=== PATIENT | female | born 1950 | race Caucasian/White ===

== ENCOUNTER → 2017-04-20 | Outpatient (CLI) | payer MEDICARE ==
[~2017-04-20] MED LIST: ALBU8.5H IH; AMLO-99 PO; BACL-51 PO; CITA-137 PO; CITA-139 PO; CITA-141 PO; CLON-327 PO; CYAN100017 PO; FERR325C2 PO; FLU45SYR25 IM ONLY; GABA-547 PO; GABA-549 PO; IPR14R INH; LOR5/325 PO; LOSA-54 PO; METO-257 PO; NEBI20TA3; NICO-218 TD; NIT100 PO; OMEP-153 PO; ONDA4TAB PO; PNEI IJ; PNEU0.5D3 IM; SULF15DR26 OP
[2017-04-20 16:09] LABS: PLATELET COUNT, AUTOMATED 248 K/uL (150-450)
== END ==
LOC: LAB 15:38
PROVIDERS: ATTEND Internal Medicine
DX: R09.02 Hypoxemia (principal); E05.20 Thyrotoxicosis with toxic multinodular goiter without thyrotoxic crisis or storm; J44.9 Chronic obstructive pulmonary disease, unspecified; E05.90 Thyrotoxicosis, unspecified without thyrotoxic crisis or storm; I10 Essential (primary) hypertension; I61.9 Nontraumatic intracerebral hemorrhage, unspecified; E53.8 Deficiency of other specified B group vitamins; E61.1 Iron deficiency
CPT/HCPCS: 36415; 81001; 82040; 82247; 82310; 82374; 82435; 82565; 82607; 82728; 82746; 82947; 83540; 83550; 84075; 84132; 84155; 84295; 84439; 84443; 84450; 84460; 84481; 84520; 85025

== ENCOUNTER → 2017-07-09 | Outpatient (CLI) | payer MEDICARE ==
[~2017-07-09] MED LIST changes: +AMIT-106 PO; -CITA-139 PO; +CITA-145 PO
--- NOTE | 2017-07-09 13:09 | RADIOLOGY IMAGING REPORT ---
FACILITY: [facility] PATIENT NAME: Nanci Paul : 1950 MR: [id number] V: [id number] EXAM DATE: ORDERING PHYSICIAN: TODD TRACEY TECHNOLOGIST: Location: [facility] Patient: Nanci Paul : 1950 Visit/Account:[id number] Date of Sevice: 07/09/2017 Exam type: CERVICAL SPINE MIN 4 VIEW History: C-spine pain, left-sided radiculopathy, stroke two years ago Comparison: MR cervical spine August 16, 2009. Findings: Five views of the cervical spine were submitted. C1-C7 are seen in gross anatomic alignment without evidence of acute fractures. There is moderate disc space narrowing at C4-5 with mild foraminal narr owing on the right secondary to uncovertebral spurring. There is moderate disc space narrowing at C5 -6 with moderate neural foramina narrowing secondary to uncovertebral spurring. There is moderate di sc space narrowing at C6-7 with mild foraminal narrowing bilaterally secondary to uncovertebral spurr ing. Anterior osteophytes are seen from C3 to C7 there is no evidence of prevertebral soft tissue sw elling. Incidentally noted are very dense vascular calcifications in both sides of the neck IMPRESSION: 1. 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
== END ==
LOC: RAD 11:36
PROVIDERS: ATTEND Internal Medicine
DX: M47.892 Other spondylosis, cervical region (principal); I65.23 Occlusion and stenosis of bilateral carotid arteries
CPT/HCPCS: 72050

== ENCOUNTER → 2017-07-16 | Outpatient (CLI) | payer MEDICARE ==
[~2017-07-16] MED LIST changes: +GADOBENATE 529MG/1ML 15ML VIAL IVP ONE
--- NOTE | 2017-07-16 13:57 | RADIOLOGY IMAGING REPORT ---
[facility] PATIENT NAME: Nanci Paul : 1950 MR: [id number] V: [id number] EXAM DATE: ORDERING PHYSICIAN: TODD TRACEY TECHNOLOGIST: Location: [facility] Patient: Nanci Paul : 1950 Visit/Account:[id number] Date of Sevice: 07/16/2017 BRAIN W W/O CONTRAST Comparisons: Head CT scan without contrast dated August 25, 2015 Additional pertinent history: Hemiplegia affecting the left side TECHNIQUE: Multiplanar, multisequence brain MRI was performed with and without gadolinium contrast. CONTRAST: 11 ml of MultiHance. FINDINGS: Sagittal midline structures and craniocervical junction: Negative. Midline shift: None. Ventricles: Negative. Brain parenchyma: Diffusion weighted imaging: Negative. Gradient sequence: Region of magnetic susceptibility involving the posterior right periventricular white matter compatible with a region of previous into parenchymal hemorrhage as noted on previous CT . T2 weighted FLAIR images: Region of encephalomalacia with abnormal increased T2 signal involving th e right thalamus and right periventricular white matter posteriorly. Scattered foci of abnormal incre ased T2 signal within the periventricular and subcortical white matter, nonspecific but likely repres enting small vessel ischemic change on a chronic basis. Extra-axial spaces: Mild cerebral atrophy. Dural venous sinuses and major arterial flow voids: Negative. Intracranial enhancement: Negative.. Mastoid air cells and paranasal sinuses: Negative. Surrounding soft tissues and orbits: Negative. Impression: 1. Sequelae of previous remote hemorrhage involving the right thalamic and right periventricular intr aparenchymal hematoma. 2. Age related changes as described above. 3. No evidence of acute intracranial pathology. Report Dictated By: Brian Mijares MD at 07/16/2017 1:49 PM Report E-Signed By: Brian Mijares MD at 07/16/2017 1:54 PM WSN:[email or web address]
== END ==
LOC: MRI 04:15
PROVIDERS: ATTEND Internal Medicine
DX: G81.94 Hemiplegia, unspecified affecting left nondominant side (principal)
CPT/HCPCS: 36415; 70553; A9577; 82040; 82247; 82310; 82374; 82435; 82565; 82947; 84075; 84132; 84155; 84295; 84450; 84460; 84520

== ENCOUNTER 2017-08-03 17:51 | Emergency (ER) | payer MEDICARE ==
--- NOTE | 2017-08-03 18:00 | ER Report ---
History and Physical Time Seen By : 17:59 Hx. of Stated Complaint: EMS REPORTS THAT THE PATIENT TRIPPED AND FELL AT HOME. SHE IS REPORTING LEFT UPPER LEG PAIN HPI/ROS CHIEF COMPLAINT: Fall, left hip pain HISTORY OF PRESENT ILLNESS: 67-year-old female with a history of COPD, O2 dependent on 4 L/m. 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 She was helicopter to [facility] where she was on a tracheostomy and had a PEG tube placed for 2 months. She has chronic covered and has some left hemiparesis. She is ambulatory with a quad cane. She has recently been doing physical therapy for strengthening and gait improvement She has hypertension on metoprolol 100 mg twice a day and amlodipine 10 mg. Today patient fell onto her left side. She's complaining of left hip pain. EMS administered Zofran 4 mg and fentanyl 50 g. The patient presents with the left lower externally neurovascularly intact with flexion of about 30. She is unable to lay her leg flat. Patient denies head impact, neck pain, chest pain, shortness of breath. REVIEW OF SYSTEMS: Respiratory: No cough, no dyspnea. Cardiovascular: No chest pain, no palpitations. Gastrointestinal: No vomiting, no abdominal pain. Musculoskeletal: As above Allergies: Coded Allergies: aspirin (Verified Adverse Reaction, Mild, NAUSEA/VOMITING, 08/25/15) Home Meds Active Scripts Baclofen (BACLOFEN) 20 Mg Tablet, 20 MG PO BID Y for SPASMS, #90 TAB 3 Refills Prov:TODD TRACEY MD 07/09/17 Cyanocobalamin (Vitamin B-12) (B-12) 1,000 Mcg Tablet, 1 TAB PO 2XW for 90 Days , #90 TAB 1 Refill Prov:TODD TRACEY MD 05/21/17 Metoprolol Tartrate (METOPROLOL TARTRATE) 100 Mg Tablet, 1 TAB PO BID, #180 TAB 3 Refills Prov:TODD TRACEY MD 04/29/17 Amlodipine Besylate (AMLODIPINE BESYLATE) 10 Mg Tablet, 1 TAB PO QDAY, #90 TAB 3 Refills Prov:TODD TRACEY MD 04/29/17 Gabapentin (GABAPENTIN) 300 Mg Capsule, 300 MG PO TID, #270 CAPSULE 3 Refills Prov:TODD TRACEY MD 04/29/17 Citalopram Hydrobromide (CITALOPRAM HBR) 40 Mg Tablet, 40 MG PO QDAY, #30 TAB 5 Refills Prov:TODD TRACEY MD 04/21/17 Sulfacetamide Sodium (SULFACETAMIDE SODIUM) 15 Ml Drops, 1-2 DROP OP Q4H for 7 Days, #15 ML Prov:TODD TRACEY MD 04/21/17 Ferrous Sulfate (IRON) 325 Mg Capsule.er, 325 MG PO QDAY, #100 TAB Prov:TODD TRACEY MD 05/26/16 Past Medical/Surgical History Past Medical History Neurologic: Reports hx of: stroke (hemoragic stroke) 2016 extended hospital stay on a ventilator for 2 months Cardiovascular: Reports hx of: hypertension Respiratory: Reports hx of: COPD Gastrointestinal: Reports hx of: other GI history (Stomach ulcers) Past Surgical History HEENT: Reports hx of: tonsillectomy (at age 27) Musculoskeletal: Reports hx of: spinal surgery (Oct 2009 in [facility]) Reviewed Nurses Notes: Yes Old Medical Records Reviewed: Yes Hx Smoking: Yes (1 PACK DAILY, UNABLE TO VARIFY INFO) Smoking Status: Former Smoker Hx Substance Use Disorder: No Constitutional Vital Sign - Last 24 Hours 08/03/17 08/03/17 08/03/17 08/03/17 17:53 18:00 19:00 19:30 Temp 98.5 Pulse 62 58 60 60 Resp 20 14 14 14 B/P (MAP) 115/84 131/86 (101) 148/81 (103) 126/68 (87) Pulse Ox 88 91 90 88 O2 Delivery Nasal Cannula Nasal Cannula Nasal Cannula Nasal Cannula O2 Flow Rate 3 3 3 08/03/17 08/03/17 08/03/17 08/03/17 20:03 20:50 20:54 20:55 Pulse 60 63 68 Resp 14 14 14 B/P (MAP) 144/92 (109) 133/78 (96) 117/84 (95) Pulse Ox 97 88 97 O2 Delivery Nasal Cannula Nasal Cannula Nasal Cannula O2 Flow Rate 3.0 3 4 4 Physical Exam Vital signs stable, afebrile, pulse ox normal. A baseline O2 General Appearance: The patient is alert, has no immediate need for airway protection and no current signs of toxicity. Mild distress, alert and oriented 3, palpation of the head and neck reveal no tenderness or trauma HEENT: Pupils equal and round no injection. TMs normal, oropharynx without redness or exudate, no dental trauma Respiratory: Chest is non tender, lungs are clear to auscultation. No chest wall tenderness, no wheezing or rails Cardiac: regular rate and rhythm, bradycardic rhythm Gastrointestinal: Abdomen is soft and non tender, no masses, bowel sounds normal. Musculoskeletal: Neck: Neck is supple and non tender. Extremities have full range of motion and are non tender. There is tenderness on palpation of the left lateral hip. It is stuck in flexion at 30. Patient' s left lower cavity is neurovascularly intact. Skin: No rashes or lesions. [ ] DIFFERENTIAL DIAGNOSIS: After history and physical exam differential diagnosis was considered for fall in the elderly including but not limited to intracranial injury, long bone and pelvic bone fracture, spinal injury, and intrathoracic injury. Medical Decision Making Data Points Result Diagram: 08/03/17 1740 08/03/17 1740 Laboratory Hematology Test 08/03/17 17:40 08/03/17 20:15 Red Blood Count 4.71 M/uL (4.17-5.56) Mean Corpuscular Volume 87.9 fL (80.0-96.0) Mean Corpuscular Hemoglobin 29.8 pg (26.0-33.0) Mean Corpuscular Hemoglobin Concent 33.9 g/dL (32.0-36.0) Red Cell Distribution Width 15.0 % (11.5-14.5) Mean Platelet Volume 8.4 fL (7.2-11.1) Neutrophils (%) (Auto) 65.0 % (39.4-72.5) Lymphocytes (%) (Auto) 23.1 % (17.6-49.6) Monocytes (%) (Auto) 6.4 % (4.1-12.4) Eosinophils (%) (Auto) 4.0 % (0.4-6.7) Basophils (%) (Auto) 1.5 % (0.3-1.4) Nucleated RBC Relative Count (auto) 0.0 /100WBC Neutrophils # (Auto) 7.0 K/uL (2.0-7.4) Lymphocytes # (Auto) 2.5 K/uL (1.3-3.6) Monocytes # (Auto) 0.7 K/uL (0.3-1.0) Eosinophils # (Auto) 0.4 K/uL (0.0-0.5) Basophils # (Auto) 0.2 K/uL (0.0-0.1) Nucleated RBC Absolute Count (auto) 0.00 K/uL Prothrombin Time 14.6 seconds (12.0-14.4) Prothromb Time International Ratio 1.13 Activated Partial Thromboplast Time 33 seconds (23-35) Sodium Level 138 mmol/L (137-145) Potassium Level 4.1 mmol/L (3.5-5.0) Chloride Level 102 mmol/L (98-107) Carbon Dioxide Level 27 mmol/L (22-31) Blood Urea Nitrogen 10 mg/dl (7-18) Creatinine 0.60 mg/dl (0.52-1.04) Glomerular Filtration Rate Calc > 60.0 Random Glucose 101 mg/dl (75-110) Calcium Level 9.7 mg/dl (8.4-10.2) Total Bilirubin 0.5 mg/dl (0.2-1.3) Aspartate Amino Transf (AST/SGOT) 23 U/L (0-35) Alanine Aminotransferase (ALT/SGPT) 20 U/L (0-56) Alkaline Phosphatase 44 U/L (0-126) Troponin I < 0.012 ng/ml Total Protein 7.9 gm/dl (6.3-8.2) Albumin 3.8 g/dl (3.5-5.0) Urine Color Yellow Urine Clarity Slightly-cloudy Urine pH 7.0 pH (4.8-9.5) Urine Specific [place] 1.009 Urine Protein Negative mg/dL (NEGATIVE) Urine Glucose (UA) Negative mg/dL (NEGATIVE) Urine Ketones Negative mg/dL (NEGATIVE) Urine Blood Negative (NEGATIVE) Urine Nitrite Negative (NEGATIVE) Urine Bilirubin Negative (NEGATIVE) Urine Urobilinogen Negative mg/dL (0.2-1.9) Urine Leukocyte Esterase Small (NEGATIVE) Urine RBC None /HPF (0-2/HPF) Urine WBC 3 /HPF (0-5/HPF) Urine Squamous Epithelial Cells Many /LPF (NONE-FEW) Urine Amorphous Crystals Few /HPF Urine Bacteria Negative /HPF (NONE-FEW) Urine Mucus None /HPF (NONE-FEW) Chemistry Test 08/03/17 17:40 08/03/17 20:15 White Blood Count 10.8 k/uL (4.5-11.0) Red Blood Count 4.71 M/uL (4.17-5.56) Hemoglobin 14.0 g/dL (12.0-16.0) Hematocrit 41.4 % (34.0-47.0) Mean Corpuscular Volume 87.9 fL (80.0-96.0) Mean Corpuscular Hemoglobin 29.8 pg (26.0-33.0) Mean Corpuscular Hemoglobin Concent 33.9 g/dL (32.0-36.0) Red Cell Distribution Width 15.0 % (11.5-14.5) Platelet Count 250 K/uL (150-450) Mean Platelet Volume 8.4 fL (7.2-11.1) Neutrophils (%) (Auto) 65.0 % (39.4-72.5) Lymphocytes (%) (Auto) 23.1 % (17.6-49.6) Monocytes (%) (Auto) 6.4 % (4.1-12.4) Eosinophils (%) (Auto) 4.0 % (0.4-6.7) Basophils (%) (Auto) 1.5 % (0.3-1.4) Nucleated RBC Relative Count (auto) 0.0 /100WBC Neutrophils # (Auto) 7.0 K/uL (2.0-7.4) Lymphocytes # (Auto) 2.5 K/uL (1.3-3.6) Monocytes # (Auto) 0.7 K/uL (0.3-1.0) Eosinophils # (Auto) 0.4 K/uL (0.0-0.5) Basophils # (Auto) 0.2 K/uL (0.0-0.1) Nucleated RBC Absolute Count (auto) 0.00 K/uL Prothrombin Time 14.6 seconds (12.0-14.4) Prothromb Time International Ratio 1.13 Activated Partial Thromboplast Time 33 seconds (23-35) Glomerular Filtration Rate Calc > 60.0 Calcium Level 9.7 mg/dl (8.4-10.2) Total Bilirubin 0.5 mg/dl (0.2-1.3) Aspartate Amino Transf (AST/SGOT) 23 U/L (0-35) Alanine Aminotransferase (ALT/SGPT) 20 U/L (0-56) Alkaline Phosphatase 44 U/L (0-126) Troponin I < 0.012 ng/ml Total Protein 7.9 gm/dl (6.3-8.2) Albumin 3.8 g/dl (3.5-5.0) Urine Color Yellow Urine Clarity Slightly-cloudy Urine pH 7.0 pH (4.8-9.5) Urine Specific [place] 1.009 Urine Protein Negative mg/dL (NEGATIVE) Urine Glucose (UA) Negative mg/dL (NEGATIVE) Urine Ketones Negative mg/dL (NEGATIVE) Urine Blood Negative (NEGATIVE) Urine Nitrite Negative (NEGATIVE) Urine Bilirubin Negative (NEGATIVE) Urine Urobilinogen Negative mg/dL (0.2-1.9) Urine Leukocyte Esterase Small (NEGATIVE) Urine RBC None /HPF (0-2/HPF) Urine WBC 3 /HPF (0-5/HPF) Urine Squamous Epithelial Cells Many /LPF (NONE-FEW) Urine Amorphous Crystals Few /HPF Urine Bacteria Negative /HPF (NONE-FEW) Urine Mucus None /HPF (NONE-FEW) Coagulation Test 08/03/17 17:40 Prothrombin Time 14.6 seconds Prothromb Time International Ratio 1.13 Activated Partial Thromboplast Time 33 seconds Urinalysis Test 08/03/17 20:15 Urine Color Yellow Urine Clarity Slightly-cloudy Urine pH 7.0 pH (4.8-9.5) Urine Specific [place] 1.009 Urine Protein Negative mg/dL (NEGATIVE) Urine Glucose (UA) Negative mg/dL (NEGATIVE) Urine Ketones Negative mg/dL (NEGATIVE) Urine Blood Negative (NEGATIVE) Urine Nitrite Negative (NEGATIVE) Urine Bilirubin Negative (NEGATIVE) Urine Urobilinogen Negative mg/dL (0.2-1.9) Urine Leukocyte Esterase Small (NEGATIVE) Urine RBC None /HPF (0-2/HPF) Urine WBC 3 /HPF (0-5/HPF) Urine Squamous Epithelial Cells Many /LPF (NONE-FEW) Urine Amorphous Crystals Few /HPF Urine Bacteria Negative /HPF (NONE-FEW) Urine Mucus None /HPF (NONE-FEW) EKG/Imaging EKG Interpretation 12 lead EKG: Rhythm: Sinus bradycardia, rate 58 bpm, computer interpretation states second-degree AV block with 21 conduction. I do not think that is so her rate is slow from her metoprolol 100 mg by mouth twice a day [place]: normal QRS: normal ST segments: normal, though it. There is no morphologic change compared to previous EKG from 2016, copy included and records Imaging X-ray: Single view portable chest x-ray was obtained. I viewed the images myself on the PACS system. My interpretation of the images is: No infiltrate, no effusion, normal mediastinum. The radiologist interpretation had no clinically significant variation from this interpretation. X-ray: Left hip, 2 views was obtained. I viewed the images myself on the PACS system. My interpretation of the images is: Minimally displaced intertrochanteric fracture of the left hip. The radiologist interpretation had no clinically significant variation from this interpretation. ED Course/Re-evaluation Clinical Indication for ER IV: Hydration, IV Access ED Course Patient was admitted to an examination room. H&P was done. The differential diagnoses was considered. On clinical examination. Patient has a fall with left hip pain, suspicious for hip fracture. Diagnostic x-rays are ordered. Patient's pain is adequately controlled by fentanyl administered by EMS RENTAL COUNTER CLERK. After x-rays performed patient is in worsening pain. She is medicated with morphine form a grams IV. Her left lower externally is neurovascularly intact. Thoughts are discussed with her. Admission is appropriate. Her EKG shows severe bradycardia. I do not think it is2 AV block. Cardiology may need to consulted. 08/03/2017 8:15:40 pm case discussed with Dr. Cervantes orthopedics on-call, who discussed the case with Dr. Dias, his partner on-call, who is willing to fix the intertrochanteric fracture. 7. The patient can be medically cleared 08/03/2017 8:20:05 pm case discussed with Dr. Rice hospitalist on-call, who advised transfer. Due to her complex past medical history and ventilator dependency and advanced COPD. 08/03/2017 8:23:33 pm case discussed with trauma surgeon, Dr. Shirley at [facility] who accepts the patient for transfer to her facility. She advises I consult the ER physician, Dr. Sanz and orthopedics Dr Haddad, who advised contacting hospitalist( DR larose), since he will be the ultimate accepting physician 08/03/2017 8:35:00 pm case discussed with Dr. Sanz, who was the accepting physician to the ER. He is ER attending. Decision to Disposition Date: Aug 03, 2017 Decision to Disposition Time: 19:23 Depart Departure Latest Vital Signs Vital Signs Date Time Temp Pulse Resp B/P (MAP) Pulse Ox O2 Delivery O2 Flow Rate FiO2 08/03/17 20:55 68 14 117/84 (95) 97 Nasal Cannula 4 08/03/17 17:53 98.5 Impression: Primary Impression: Closed intertrochanteric fracture of left hip Additional Impressions: History of hemorrhagic stroke with residual hemiplegia COPD (chronic obstructive pulmonary disease) Second degree atrioventricular block by electrocardiogram Condition: Improved Disposition: XFER TO [facility] Referrals: TODD TRACEY MD (PCP) Problem Qualifiers Primary Impression: Closed intertrochanteric fracture of left hip Encounter type: initial encounter Fracture alignment: nondisplaced Qualified Codes: S72.145A - Nondisplaced intertrochanteric fracture of left femur, initial encounter for closed fracture Additional Impressions: COPD (chronic obstructive pulmonary disease) COPD type: unspecified COPD Qualified Codes: J44.9 - Chronic obstructive pulmonary disease, unspecified SHAHIDA OLSON DO Aug 03, 2017 17:59
--- NOTE | 2017-08-03 18:16 | EKG ---
FACILITY: [facility] PATIENT NAME: LUCA WYATT : [id number] MR: [id number] V: [id number] EXAM DATE: ORDERING PHYSICIAN: SHAHIDA OLSON TECHNOLOGIST: ARUN Pickering Reason : FALL Blood Pressure : / mmHG Vent. Rate : 058 BPM Atrial Rate : 116 BPM P-R Int : 146 ms QRS Dur : 066 ms QT Int : 492 ms P-R-T Axes : 091 082 077 degrees QTc Int : 482 ms Sinus bradycardia Borderline ECG Confirmed by PAULA CARDOSO ([id number]) on 08/03/2017 8:51:34 PM Referred By: ER Confirmed By:PAULA CARDOSO
[2017-08-03 18:18] LABS: PLATELET COUNT, AUTOMATED 250 K/uL (150-450)
[2017-08-03 18:33] LABS: INR 1.13
--- NOTE | 2017-08-03 18:51 | RADIOLOGY IMAGING REPORT ---
FACILITY: PATIENT NAME: Nanci Paul : 1950 MR: [id number] V: [id number] EXAM DATE: ORDERING PHYSICIAN: SHAHIDA OLSON TECHNOLOGIST: Location[place] [facility] [place] Patient: Nanci Paul : 1950 Visit/Account:[id number] Date of Sevice: 08/03/2017 CHEST SINGLE AP INDICATION: Chest pain after fall COMPARISON: None available FINDINGS: Heart size within normal limits. There is no focal infiltrate or lobar consolidation. Interstitial prominence is noted at the lung b ases. There is no pneumothorax or pleural effusion. IMPRESSION: 1. No acute cardiopulmonary process. Report Dictated By: Martin Bartholomew at 08/03/2017 6:47 PM Report E-Signed By: Martin Bartholomew at 08/03/2017 6:47 PM WSN:[id number]
--- NOTE | 2017-08-03 18:52 | RADIOLOGY IMAGING REPORT ---
FACILITY: [facility] PATIENT NAME: Nanci Paul : 1950 MR: [id number] V: [id number] EXAM DATE: ORDERING PHYSICIAN: SHAHIDA OLSON TECHNOLOGIST: Location: [facility] - [place], [place] Patient: Nanci Paul : 1950 Visit/Account:[id number] Date of Sevice: 08/03/2017 HIP LEFT Indication: Pain after fall Comparison: None available Findings: There is a mildly displaced intertrochanteric neck fracture. No dislocation is seen. The remainder th e pelvis is intact. IMPRESSION: 1. Mildly displaced left intertrochanteric neck fracture Report Dictated By: Martin Bartholomew at 08/03/2017 6:47 PM Report E-Signed By: Martin Bartholomew at 08/03/2017 6:48 PM WSN:[id number]
[2017-08-03] MEDS ORDERED: MORPHINE 4 MG/ML SDV IVP ONE (19:20)
[2017-08-03 20:55] VITALS: BP 117/84
[2017-08-03] MEDS ORDERED: HYDROmorphone* 1 MG/ML 1 MG/ML ML IVP ONE (21:05)
== END 2017-08-03 21:24 | disposition short-term general hospital (02) ==
LOC: ER 18:00
DX: S72.145A Nondisplaced intertrochanteric fracture of left femur, initial encounter for closed fracture (principal); I44.1 Atrioventricular block, second degree; J44.9 Chronic obstructive pulmonary disease, unspecified; Z86.73 Personal history of transient ischemic attack (TIA), and cerebral infarction without residual deficits; W01.0XXA Fall on same level from slipping, tripping and stumbling without subsequent striking against object, initial encounter
CPT/HCPCS: 71045; 73502; 81001; 84484; 85025; 85610; 85730; 93005; 96374; 96375; 99285; J1170; J2270; 82040; 82247; 82310; 82374; 82435; 82565; 82947; 84075; 84132; 84155; 84295; 84450; 84460; 84520

== ENCOUNTER → 2017-08-03 | Outpatient (CLI) | payer MEDICARE ==
[~2017-08-03] MED LIST changes: -GADOBENATE 529MG/1ML 15ML VIAL IVP ONE
== END ==
LOC: AMB 17:25
PROVIDERS: ATTEND Nurse Practitioner
DX: M79.652 Pain in left thigh (principal); M25.562 Pain in left knee; W18.30XA Fall on same level, unspecified, initial encounter; Y92.018 Other place in single-family (private) house as the place of occurrence of the external cause
CPT/HCPCS: A0425; A0433

== ENCOUNTER → 2017-08-03 | Outpatient (CLI) | payer MEDICARE | LOC: AMB 21:19 | PROVIDERS: ATTEND Nurse Practitioner | DX: S72.002A Fracture of unspecified part of neck of left femur, initial encounter for closed fracture (principal) | CPT/HCPCS: A0425; A0426 ==

== ENCOUNTER → 2017-09-30 | Outpatient (CLI) | payer MEDICARE ==
[~2017-09-30] MED LIST changes: +CHOL200025 PO; +DOCU-416 PO; +DULO30CA35 PO; +DULO60CA56 PO; +ENOX40DI8 SQ; +GABA-503 PO; +HYDR-385 PO; +TRAM-420 PO
[2017-09-30 12:01] LABS: PLATELET COUNT, AUTOMATED 267 K/uL (150-450)
[2017-09-30 12:11] LABS: LDL CHOLESTEROL 99 mg/dl
== END ==
LOC: LAB 11:38
PROVIDERS: ATTEND Internal Medicine
DX: I61.9 Nontraumatic intracerebral hemorrhage, unspecified (principal); E05.20 Thyrotoxicosis with toxic multinodular goiter without thyrotoxic crisis or storm; J44.9 Chronic obstructive pulmonary disease, unspecified; I10 Essential (primary) hypertension
CPT/HCPCS: 36415; 82040; 82247; 82306; 82310; 82374; 82435; 82465; 82565; 82728; 82947; 83540; 83550; 83718; 84075; 84132; 84155; 84295; 84443; 84450; 84460; 84478; 84520; 85025

== ENCOUNTER 2017-10-13 09:39 | Emergency (ER) | payer MEDICARE ==
--- NOTE | 2017-10-13 09:43 | ER Report ---
History and Physical Time Seen By : 09:43 HPI/ROS This is a 67-year-old female who is 2 months status post repair of a left hip fracture. She fell again today when she tripped over a combination of oxygen tubing and the rug in the home. She presented to the emergency department by ambulance complaining of pain in her left thigh and left knee. So with complaints in her left shoulder. She did not hit her head. No loss of consciousness and no neck pain. No chest pain, no increased shortness of breath , no abdominal pain or back pain. Remainder of the 14 system rev: Yes Allergies: Coded Allergies: aspirin (Verified Adverse Reaction, Mild, NAUSEA/VOMITING, 08/25/15) Home Meds Active Scripts Duloxetine Hcl (CYMBALTA) 60 Mg Capsule.dr, 60 MG PO QDAY, #30 CAP 6 Refills Prov:TODD TRACEY MD 09/30/17 Duloxetine Hcl (CYMBALTA) 30 Mg Capsule.dr, 30 MG PO QDAY, #7 CAP Prov:TODD TRACEY MD 09/30/17 Amitriptyline Hcl (AMITRIPTYLINE HCL) 25 Mg Tablet, 25 MG PO QHS, #30 TAB 3 Refills Prov:TODD TRACEY MD 09/30/17 Gabapentin (GABAPENTIN) 600 Mg Tablet, 600 MG PO 2-3XD, #90 CAP 4 Refills Prov:TODD TRACEY MD 09/30/17 Baclofen (BACLOFEN) 20 Mg Tablet, 20 MG PO BID Y for SPASMS, #90 TAB 3 Refills Prov:TODD TRACEY MD 07/09/17 Cyanocobalamin (Vitamin B-12) (B-12) 1,000 Mcg Tablet, 1 TAB PO 2XW for 90 Days , #90 TAB 1 Refill Prov:TODD TRACEY MD 05/21/17 Metoprolol Tartrate (METOPROLOL TARTRATE) 100 Mg Tablet, 1 TAB PO BID, #180 TAB 3 Refills Prov:TODD TRACEY MD 04/29/17 Amlodipine Besylate (AMLODIPINE BESYLATE) 10 Mg Tablet, 1 TAB PO QDAY, #90 TAB 3 Refills Prov:TODD TRACEY MD 04/29/17 Reported Medications Cholecalciferol (Vitamin D3) (VITAMIN D3) 2,000 Unit Capsule, 2000 UNIT PO QDAY , CAPSULE 09/30/17 Docusate Sodium (COLACE) 100 Mg Capsule, 100 MG PO BID Y for constipation, CAPSULE 09/30/17 Tramadol Hcl (TRAMADOL HCL) 50 Mg Tablet, 1 TAB PO Q6H Y for pain, TAB 09/30/17 Reviewed Nurses Notes: Yes Old Medical Records Reviewed: Yes Hx Smoking: Yes (1 PACK DAILY, UNABLE TO VARIFY INFO) Smoking Status: Former Smoker Hx Substance Use Disorder: No Hx Alcohol Use: No Constitutional Vital Sign - Last 24 Hours 10/13/17 09:44 Temp 98.2 Pulse 79 Resp 18 B/P (MAP) 149/75 Pulse Ox 91 O2 Delivery Nasal Cannula Intake and Output 10/13/17 10/13/17 10/14/17 15:00 23:00 07:00 Output Total 250 ml Balance -250 ml Physical Exam General Appearance: The patient is alert, has no immediate need for airway protection and no current signs of toxicity. Eyes: Pupils equal and round no injection. Respiratory: Chest is non tender, lungs are clear to auscultation. Cardiac: regular rate and rhythm Gastrointestinal: Abdomen is soft and non tender, no masses, bowel sounds normal. Musculoskeletal: Tenderness to palpation of the left thigh Neck: Neck is supple and non tender. Extremities have full range of motion and are non tender. Skin: No rashes or lesions. DIFFERENTIAL DIAGNOSIS: After history and physical exam differential diagnosis was considered for fracture, dislocation, intra-abdominal injury, spinal injury Medical Decision Making Data Points Result Diagram: 10/13/17 0935 10/13/17 0935 Laboratory Hematology Test 10/13/17 09:35 10/13/17 11:02 Red Blood Count 4.40 M/uL (4.17-5.56) Mean Corpuscular Volume 88.8 fL (80.0-96.0) Mean Corpuscular Hemoglobin 29.6 pg (26.0-33.0) Mean Corpuscular Hemoglobin Concent 33.4 g/dL (32.0-36.0) Red Cell Distribution Width 17.1 % (11.5-14.5) Mean Platelet Volume 8.7 fL (7.2-11.1) Neutrophils (%) (Auto) 77.8 % (39.4-72.5) Lymphocytes (%) (Auto) 15.3 % (17.6-49.6) Monocytes (%) (Auto) 4.3 % (4.1-12.4) Eosinophils (%) (Auto) 2.1 % (0.4-6.7) Basophils (%) (Auto) 0.5 % (0.3-1.4) Nucleated RBC Relative Count (auto) 0.0 /100WBC Neutrophils # (Auto) 10.3 K/uL (2.0-7.4) Lymphocytes # (Auto) 2.0 K/uL (1.3-3.6) Monocytes # (Auto) 0.6 K/uL (0.3-1.0) Eosinophils # (Auto) 0.3 K/uL (0.0-0.5) Basophils # (Auto) 0.1 K/uL (0.0-0.1) Nucleated RBC Absolute Count (auto) 0.00 K/uL Sodium Level 139 mmol/L (137-145) Potassium Level 4.0 mmol/L (3.5-5.0) Chloride Level 99 mmol/L (98-107) Carbon Dioxide Level 31 mmol/L (22-31) Blood Urea Nitrogen 12 mg/dl (7-18) Creatinine 0.50 mg/dl (0.52-1.04) Glomerular Filtration Rate Calc > 60.0 Random Glucose 108 mg/dl (75-110) Calcium Level 9.2 mg/dl (8.4-10.2) Total Bilirubin 0.4 mg/dl (0.2-1.3) Aspartate Amino Transf (AST/SGOT) 29 U/L (0-35) Alanine Aminotransferase (ALT/SGPT) 24 U/L (0-56) Alkaline Phosphatase 39 U/L (0-126) Total Protein 7.6 g/dl (6.3-8.2) Albumin 3.9 g/dl (3.5-5.0) Prothrombin Time 14.9 seconds (12.0-14.4) Prothromb Time International Ratio 1.16 Activated Partial Thromboplast Time 33 seconds (23-35) Chemistry Test 10/13/17 09:35 10/13/17 11:02 White Blood Count 13.2 k/uL (4.5-11.0) Red Blood Count 4.40 M/uL (4.17-5.56) Hemoglobin 13.0 g/dL (12.0-16.0) Hematocrit 39.0 % (34.0-47.0) Mean Corpuscular Volume 88.8 fL (80.0-96.0) Mean Corpuscular Hemoglobin 29.6 pg (26.0-33.0) Mean Corpuscular Hemoglobin Concent 33.4 g/dL (32.0-36.0) Red Cell Distribution Width 17.1 % (11.5-14.5) Platelet Count 281 K/uL (150-450) Mean Platelet Volume 8.7 fL (7.2-11.1) Neutrophils (%) (Auto) 77.8 % (39.4-72.5) Lymphocytes (%) (Auto) 15.3 % (17.6-49.6) Monocytes (%) (Auto) 4.3 % (4.1-12.4) Eosinophils (%) (Auto) 2.1 % (0.4-6.7) Basophils (%) (Auto) 0.5 % (0.3-1.4) Nucleated RBC Relative Count (auto) 0.0 /100WBC Neutrophils # (Auto) 10.3 K/uL (2.0-7.4) Lymphocytes # (Auto) 2.0 K/uL (1.3-3.6) Monocytes # (Auto) 0.6 K/uL (0.3-1.0) Eosinophils # (Auto) 0.3 K/uL (0.0-0.5) Basophils # (Auto) 0.1 K/uL (0.0-0.1) Nucleated RBC Absolute Count (auto) 0.00 K/uL Glomerular Filtration Rate Calc > 60.0 Calcium Level 9.2 mg/dl (8.4-10.2) Total Bilirubin 0.4 mg/dl (0.2-1.3) Aspartate Amino Transf (AST/SGOT) 29 U/L (0-35) Alanine Aminotransferase (ALT/SGPT) 24 U/L (0-56) Alkaline Phosphatase 39 U/L (0-126) Total Protein 7.6 g/dl (6.3-8.2) Albumin 3.9 g/dl (3.5-5.0) Prothrombin Time 14.9 seconds (12.0-14.4) Prothromb Time International Ratio 1.16 Activated Partial Thromboplast Time 33 seconds (23-35) Coagulation Test 10/13/17 11:02 Prothrombin Time 14.9 seconds Prothromb Time International Ratio 1.16 Activated Partial Thromboplast Time 33 seconds EKG/Imaging Imaging X-ray: left hip, left knee, left shoulder was obtained. I viewed the images myself on the PACS system. My interpretation of the images is: Periprosthetic midshaft femur fracture. The radiologist interpretation had no clinically significant variation from this interpretation. ED Course/Re-evaluation ED Course 67-year-old female with coronary artery disease, COPD, and a recent repair of a left hip fracture presents to the emergency department after a fall. She sustained a left periprosthetic midshaft femur fracture. He is neurovascularly intact. Pain is controlled with morphine when necessary. Her initial surgery was done in [place] by Dr. Anderson. I spoke with Dr. Anderson who is on his way out of town and suggested I speak with our orthopedic surgeons were currently on -call. I spoke with Dr. Carl will wanted the patient transferred to [facility]. The patient has been accepted by both the orthopedic service as well as the hospitalist service at [facility]. She and her family are amenable for transfer. Decision to Disposition Date: Oct 13, 2017 Decision to Disposition Time: 14:43 Depart Departure Latest Vital Signs Vital Signs Date Time Temp Pulse Resp B/P (MAP) Pulse Ox O2 Delivery O2 Flow Rate FiO2 10/13/17 09:44 98.2 79 18 149/75 91 Nasal Cannula Impression: Primary Impression: Mary-prosthetic femoral shaft fracture Disposition: XFER TO [facility] Referrals: TODD TRACEY MD (PCP) HELLEN CROCKER MD Oct 13, 2017 09:43
[2017-10-13] MEDS ORDERED: MORPHINE 4 MG/ML SDV IVP ONE ×4 (09:45→14:45)
--- NOTE | 2017-10-13 10:32 | RADIOLOGY IMAGING REPORT ---
FACILITY: [facility] [place] PATIENT NAME: Nanci Paul : 1950 MR: [id number] V: [id number] EXAM DATE: ORDERING PHYSICIAN: HELLEN CROCKER TECHNOLOGIST: Location: [facility] - [place] Patient: Nanci Paul : 1950 Visit/Account:[id number] Date of Sevice: 10/13/2017 Exam type: HIP LEFT History: s/p recent repair of left hip and fall this morning Comparison: August 03, 2017. Findings: Since the prior study there has been placement of an intramedullary tasneem within the femur and dynamic screw transfixing comminuted fracture through the intertrochanteric region of the left hip. There is some surrounding callus at the fracture site although the fracture has not yet completely united. T here is now an acute appearing oblique fracture through the proximal diaphysis of the left femur marquise cent to midshaft of the left femoral tasneem. There is a 5 mm anterior displacement of the distal fragme nt IMPRESSION: 1. Postsurgical changes from open reduction internal fixation of the intratrochanteric fracture of t he left hip which demonstrates some healing callus although the fracture is not completely united There is an acute appearing oblique fracture through the proximal diaphysis of the left femur adjacen t to the midshaft of the left femoral tasneem. Report Dictated By: Jessa Zayas MD at 10/13/2017 10:25 AM Report E-Signed By: Jessa Zayas MD at 10/13/2017 10:29 AM WSN:[email or web address]
--- NOTE | 2017-10-13 10:35 | RADIOLOGY IMAGING REPORT ---
FACILITY: [facility] - [place] PATIENT NAME: Nanci Paul : 1950 MR: [id number] V: [id number] EXAM DATE: ORDERING PHYSICIAN: HELLEN CROCKER TECHNOLOGIST: Location: [facility] - [place] Patient: Nanci Paul : 1950 Visit/Account:[id number] Date of Sevice: 10/13/2017 Exam type: SHOULDER MIN 2 VIEWS LEFT History: FALL Comparison: None. Findings: Two views of the left shoulder reveal no evidence of acute fracture or dislocation. There are mild g enerative changes the left glenohumeral joint. Incidentally noted is calcification the aortic knob IMPRESSION: 1. No evidence of acute fracture station involving the left shoulder Report Dictated By: Jessa Zayas MD at 10/13/2017 10:29 AM Report E-Signed By: Jessa Zayas MD at 10/13/2017 10:30 AM WSN:[id number]
[2017-10-13 10:53] LABS: PLATELET COUNT, AUTOMATED 281 K/uL (150-450)
--- NOTE | 2017-10-13 10:55 | EKG ---
FACILITY: [facility] - [place] PATIENT NAME: LUCA WYATT : [id number] MR: [id number] V: [id number] EXAM DATE: ORDERING PHYSICIAN: HELLEN CROCKER TECHNOLOGIST: EDA Pickering Reason : FALL Blood Pressure : / mmHG Vent. Rate : 080 BPM Atrial Rate : 080 BPM P-R Int : 148 ms QRS Dur : 070 ms QT Int : 402 ms P-R-T Axes : 067 033 048 degrees QTc Int : 463 ms Normal sinus rhythm Nonspecific T wave abnormality Abnormal ECG When compared with ECG of 03-AUG-2017 18:12, Relatively unchanged Confirmed by ADRIÁN BAXTER ([id number]) on 10/13/2017 11:27:33 AM Referred By: Confirmed By:ADRIÁN BAXTER
[2017-10-13 11:21] LABS: INR 1.16
--- NOTE | 2017-10-13 12:01 | RADIOLOGY IMAGING REPORT ---
FACILITY: [facility] - [place] PATIENT NAME: Nanci Paul : 1950 MR: [id number] V: [id number] EXAM DATE: ORDERING PHYSICIAN: HELLEN CROCKER TECHNOLOGIST: Location: [facility] - [place] Patient: Nanci Paul : 1950 Visit/Account:[id number] Date of Sevice: 10/13/2017 Left knee Indication: Fall with femoral fracture and knee pain Comparison: X-ray examination of the hip October 13, 2017. Findings: 3 views left knee were obtained. Lateral view demonstrates a obliquely oriented periprosthetic nondisplaced fracture from the tip of t he femoral stem extending to the anterior cortex distal femur. The bones are osteopenic. Osseous alignment is anatomic at the knee. IMPRESSION: 1. Osteopenia. Nondisplaced periprosthetic fracture distal femoral shaft. Report Dictated By: Cricket Salazar MD at 10/13/2017 11:53 AM Report E-Signed By: Cricket Salazar MD at 10/13/2017 11:56 AM WSN:[id number]
--- NOTE | 2017-10-13 12:02 | RADIOLOGY IMAGING REPORT ---
[facility] PATIENT NAME: Nanci Paul : 1950 MR: [id number] V: [id number] EXAM DATE: ORDERING PHYSICIAN: HELLEN CROCKER TECHNOLOGIST: Location: [facility] Patient: Nanci Paul : 1950 Visit/Account:[id number] Date of Sevice: 10/13/2017 Single view of the chest Indication: Fall, left knee pain.. Comparison: X-ray examination of the chest from August 03, 2017 Findings: Cardiac silhouette is within normal limits. This prominence of the vasculature and the central inters titium which is likely accentuated by the frontal projection and the patient supine positioning. No o vert failure, new consolidation, effusion or infiltrate. IMPRESSION: 1. No acute cardiopulmonary process. Report Dictated By: Cricket Salazar MD at 10/13/2017 11:56 AM Report E-Signed By: Cricket Salazar MD at 10/13/2017 11:57 AM WSN:[id number]
[2017-10-13] MEDS ORDERED: NICOTINE 21 MG/24 HR PATCH TD ONE (13:55)
[2017-10-13 14:30] VITALS: BP 132/95
[2017-10-13] MEDS ORDERED: ONDANSETRON 4 MG/2 ML VIAL IVP ONE (14:55)
== END 2017-10-13 15:05 | disposition short-term general hospital (02) ==
LOC: ER 09:44
DX: M97.02XA Periprosthetic fracture around internal prosthetic left hip joint, initial encounter (principal); W01.0XXA Fall on same level from slipping, tripping and stumbling without subsequent striking against object, initial encounter
CPT/HCPCS: 36415; 71045; 73030; 73502; 73562; 85025; 85610; 85730; 86850; 86900; 86901; 93005; 96374; 96375; 96376; 99285; A9270; J2270; J2405; 82040; 82247; 82310; 82374; 82435; 82565; 82947; 84075; 84132; 84155; 84295; 84450; 84460; 84520

== ENCOUNTER → 2017-10-13 | Outpatient (CLI) | payer MEDICARE | LOC: AMB 14:47 | PROVIDERS: ATTEND Nurse Practitioner | DX: S72.002A Fracture of unspecified part of neck of left femur, initial encounter for closed fracture (principal) | CPT/HCPCS: A0425; A0426 ==

== ENCOUNTER → 2017-10-13 | Outpatient (CLI) | payer MEDICARE | LOC: AMB 09:11 | PROVIDERS: ATTEND Nurse Practitioner | DX: M25.552 Pain in left hip (principal); M25.512 Pain in left shoulder; W01.0XXA Fall on same level from slipping, tripping and stumbling without subsequent striking against object, initial encounter; Y92.019 Unspecified place in single-family (private) house as the place of occurrence of the external cause | CPT/HCPCS: A0425; A0427 ==

== ENCOUNTER 2017-10-29 19:51 | Observation (INO) | payer MEDICARE ==
[~2017-10-29] VITALS: Ht 149.9 cm; Wt 50.3 kg
[~2017-10-29 19:51] MED LIST changes: +AMLO-113 PO; -AMLO-99 PO
--- NOTE | 2017-10-29 20:32 | ER Report ---
History and Physical Time Seen By MD: 20:01 Hx. of Stated Complaint: just had hip surger. refusing to do pt. family unable to care for her, she is unable to care for herself HPI/ROS CHIEF COMPLAINT: Status post hip fracture and hip replacement HISTORY OF PRESENT ILLNESS: This is a 67-year-old female who presents to the emergency department via EMS and with the Police Department for left hip pain. The patient had a hemorrhagic stroke in 2016 since the stroke she has had left- sided hemiparesis. The patient had a fall on August 03, 2017 where she sustained an intra-trochanteric fracture, patient was transferred, fracture was repaired, was sent to rehabilitation facility where she did rehabilitation afrter graduating rehab she was discharged home. Then 10/13/2017 the patient was at home and tripped over some oxygen tubing and carpeting where she fell again landing on her left side where she sustained a midshaft femur fracture, she was transferred where she had a revision. The patient is having increased pain and increased difficulty ambulating, now has begun to refuse to follow-up with physical therapy. The family is concerned about her safety, the police were contacted for a welfare check, subsequently EMS was contacted and the patient was transported to the emergency department. The patient is alert and oriented to place and time however the season seems to be a little off she did think it was winter. The patient states that she does have increased hip pain but is frustrated with therapy. The patient denies chest pain or shortness of breath, no nausea or vomiting. No rashes or headaches. No increased weakness on the left side according to the patient. The family states that the patient's mood and temperament has changed significantly since starting the [facility], which was 1 day prior to the 2nd fall on October 13. Since then she's had hallucinations, not acting appropriate, mood swings and not acting at all like herself. They're concerned that she is now unable to care for herself as she is refusing any sort of treatment. REVIEW OF SYSTEMS: Constitutional: No fever, no chills. Eyes: No discharge. ENT: No sore throat. Cardiovascular: No chest pain, no palpitations. Respiratory: No cough, no shortness of breath. Gastrointestinal: No abdominal pain, no vomiting. Genitourinary: No hematuria. Musculoskeletal: As above. Skin: No rashes. Neurological: As above. Allergies: Coded Allergies: aspirin (Verified Adverse Reaction, Mild, NAUSEA/VOMITING, 10/29/17) Home Meds Active Scripts Duloxetine Hcl (CYMBALTA) 60 Mg Capsule.dr, 60 MG PO QDAY, #30 CAP 6 Refills Prov:TODD TRACEY MD 09/30/17 Duloxetine Hcl (CYMBALTA) 30 Mg Capsule.dr, 30 MG PO QDAY, #7 CAP Prov:TODD TRACEY MD 09/30/17 Amitriptyline Hcl (AMITRIPTYLINE HCL) 25 Mg Tablet, 25 MG PO QHS, #30 TAB 3 Refills Prov:TODD TRACEY MD 09/30/17 Gabapentin (GABAPENTIN) 600 Mg Tablet, 600 MG PO 2-3XD, #90 CAP 4 Refills Prov:TODD TRACEY MD 09/30/17 Baclofen (BACLOFEN) 20 Mg Tablet, 20 MG PO BID PRN for SPASMS, #90 TAB 3 Refills Prov:TODD TRACEY MD 07/09/17 Cyanocobalamin (Vitamin B-12) (B-12) 1,000 Mcg Tablet, 1 TAB PO 2XW for 90 Days, #90 TAB 1 Refill Prov:TODD TRACEY MD 05/21/17 Metoprolol Tartrate (METOPROLOL TARTRATE) 100 Mg Tablet, 1 TAB PO BID, #180 TAB 3 Refills Prov:TODD TRACEY MD 04/29/17 Amlodipine Besylate (AMLODIPINE BESYLATE) 10 Mg Tablet, 1 TAB PO QDAY, #90 TAB 3 Refills Prov:TODD TRACEY MD 04/29/17 Reported Medications Cholecalciferol (Vitamin D3) (VITAMIN D3) 2,000 Unit Capsule, 2000 UNIT PO QDAY, CAPSULE 09/30/17 Docusate Sodium (COLACE) 100 Mg Capsule, 100 MG PO BID PRN for constipation, CAPSULE 09/30/17 Tramadol Hcl (TRAMADOL HCL) 50 Mg Tablet, 1 TAB PO Q6H PRN for pain, TAB 09/30/17 Past Medical/Surgical History The patient has a past medical and surgical history of stroke, hypertension, urinary tract infections, back pain, back surgery, wears dentures, reading glasses, left hip fracture 2, left hip surgery 2. Reviewed Nurses Notes: Yes Hx Smoking: Yes (1 PACK DAILY, UNABLE TO VARIFY INFO) Smoking Status: Former Smoker Hx Substance Use Disorder: No Hx Alcohol Use: No Constitutional Vital Sign - Last 24 Hours 10/29/17 19:54 Temp 98.3 Pulse 93 Resp 14 B/P (MAP) 136/80 Pulse Ox 96 O2 Delivery Nasal Cannula Physical Exam General Appearance: The patient is alert, has no immediate need for airway protection and no signs of toxicity. Eyes: Pupils equal and round no pallor or injection. ENT, Mouth: Mucous membranes are moist. Respiratory: There are no retractions, lungs are clear to auscultation. Cardiovascular: Regular rate and rhythm. Gastrointestinal: Abdomen is soft and non tender, no masses, bowel sounds normal. Neurological: Alert and oriented 3. Moving all extremities. Following all commands. No focal neuro deficits. Patient does have residual left-sided weakness from a previous stroke. Skin: Warm and dry, no rashes. Incision to the left hip is well approximated, no erythema or cellulitis, no drainage. Musculoskeletal: Neck is supple non tender. Extremities left hip pain with movement, no deformities, crepitus or bruising identified. Painful left leg straight leg raise, unable to lift off gurney. DIFFERENTIAL DIAGNOSIS: After history and physical exam differential diagnosis was considered for dementia, recurrent hip fracture, medication interaction, infection, and hardware failure. Medical Decision Making Data Points Result Diagram: 10/29/17213910/29/172139 Laboratory Hematology Test 10/29/17 21:40 Red Blood Count 4.51 M/uL (4.17-5.56) Mean Corpuscular Volume 88.3 fL (80.0-96.0) Mean Corpuscular Hemoglobin 29.9 pg (26.0-33.0) Mean Corpuscular Hemoglobin Concent 33.9 g/dL (32.0-36.0) Red Cell Distribution Width 16.4 % (11.5-14.5) Mean Platelet Volume 7.7 fL (7.2-11.1) Neutrophils (%) (Auto) 49.8 % (39.4-72.5) Lymphocytes (%) (Auto) 35.6 % (17.6-49.6) Monocytes (%) (Auto) 8.1 % (4.1-12.4) Eosinophils (%) (Auto) 5.4 % (0.4-6.7) Basophils (%) (Auto) 1.1 % (0.3-1.4) Nucleated RBC Relative Count (auto) 0.0 /100WBC Neutrophils # (Auto) 3.8 K/uL (2.0-7.4) Lymphocytes # (Auto) 2.7 K/uL (1.3-3.6) Monocytes # (Auto) 0.6 K/uL (0.3-1.0) Eosinophils # (Auto) 0.4 K/uL (0.0-0.5) Basophils # (Auto) 0.1 K/uL (0.0-0.1) Nucleated RBC Absolute Count (auto) 0.00 K/uL Peripheral Blood Smear Yes Y/N Sodium Level 141 mmol/L (137-145) Potassium Level 3.6 mmol/L (3.5-5.0) Chloride Level 101 mmol/L (98-107) Carbon Dioxide Level 31 mmol/L (22-31) Blood Urea Nitrogen 13 mg/dl (7-18) Creatinine 0.50 mg/dl (0.52-1.04) Glomerular Filtration Rate Calc > 60.0 Random Glucose 108 mg/dl (75-110) Calcium Level 9.5 mg/dl (8.4-10.2) Total Bilirubin 0.4 mg/dl (0.2-1.3) Aspartate Amino Transf (AST/SGOT) 24 U/L (0-35) Alanine Aminotransferase (ALT/SGPT) 23 U/L (0-56) Alkaline Phosphatase 74 U/L (0-126) Total Protein 7.4 g/dl (6.3-8.2) Albumin 3.7 g/dl (3.5-5.0) Chemistry Test 10/29/17 21:40 White Blood Count 7.7 k/uL (4.5-11.0) Red Blood Count 4.51 M/uL (4.17-5.56) Hemoglobin 13.5 g/dL (12.0-16.0) Hematocrit 39.8 % (34.0-47.0) Mean Corpuscular Volume 88.3 fL (80.0-96.0) Mean Corpuscular Hemoglobin 29.9 pg (26.0-33.0) Mean Corpuscular Hemoglobin Concent 33.9 g/dL (32.0-36.0) Red Cell Distribution Width 16.4 % (11.5-14.5) Platelet Count 548 K/uL (150-450) Mean Platelet Volume 7.7 fL (7.2-11.1) Neutrophils (%) (Auto) 49.8 % (39.4-72.5) Lymphocytes (%) (Auto) 35.6 % (17.6-49.6) Monocytes (%) (Auto) 8.1 % (4.1-12.4) Eosinophils (%) (Auto) 5.4 % (0.4-6.7) Basophils (%) (Auto) 1.1 % (0.3-1.4) Nucleated RBC Relative Count (auto) 0.0 /100WBC Neutrophils # (Auto) 3.8 K/uL (2.0-7.4) Lymphocytes # (Auto) 2.7 K/uL (1.3-3.6) Monocytes # (Auto) 0.6 K/uL (0.3-1.0) Eosinophils # (Auto) 0.4 K/uL (0.0-0.5) Basophils # (Auto) 0.1 K/uL (0.0-0.1) Nucleated RBC Absolute Count (auto) 0.00 K/uL Peripheral Blood Smear Yes Y/N Glomerular Filtration Rate Calc > 60.0 Calcium Level 9.5 mg/dl (8.4-10.2) Total Bilirubin 0.4 mg/dl (0.2-1.3) Aspartate Amino Transf (AST/SGOT) 24 U/L (0-35) Alanine Aminotransferase (ALT/SGPT) 23 U/L (0-56) Alkaline Phosphatase 74 U/L (0-126) Total Protein 7.4 g/dl (6.3-8.2) Albumin 3.7 g/dl (3.5-5.0) EKG/Imaging Imaging Location: [facility] [place] Patient: Nanci Paul : 1950 Visit/Account:[id number] Date of Sevice: 10/29/2017 Technique: HIP LEFT HISTORY: s/p hip fx x2 with revision Comparison studies: Left hip radiograph October 13, 2017 FINDINGS: Redemonstrated is an acute, oblique fracture through the proximal left femoral diaphysis and exiting along the distal aspect of the shaft. There is progressive fracture fragment distraction with the proximal apex located medially. Noted is a left femoral tasneem with distal locking screws as well as a intramedullary screw traversing a subacute fracture involving the left intert rochanteric region femur. The alignment of the left hip is maintained. An avulsed fracture fragment is seen superior to the intramedullary tasneem. IMPRESSION: 1. Acute, oblique fracture involving the left femoral diaphysis with progressive fracture distraction. 2. ORIF of a subacute intertrochanteric fracture of the left femur. Report Dictated By: Nicholas Gross DO at 10/29/2017 8:55 PM Report E-Signed By: Nicholas Gross DO at 10/29/2017 9:06 PM WSN:[id number] ED Course/Re-evaluation ED Course The patient was admitted to room. A history and physical were obtained. Differential diagnoses were considered. A left hip x-ray was obtained. Left hip x-ray showing Acute, oblique fracture involving the left femoral diaphysis with progressive fracture distraction. The family expressed their concern for the patient's safety at home and her seemingly inability to take care of herself, they state that she is not even able to ambulate to get up to go to the bathroom, eats or take care of herself. The patient has fired all of the home he alth aides, and people who held her including her son. The son and the [id number] who is a home health aide also states that the patient's mental status is changed significantly since starting the Cymbalta the day before her October 13 fall. An IV was started. A CBC, CMP were obtained, platelets 548, otherwise left studies unremarkable. Patient was given 50 g IV fentanyl for increased left hip pain. Patient having significant left hip pain with any movement of the left leg. 10/29/2017 9:33:14 pm I did speak with Dr. Mitchell, the hospitalist pilot control operator helper regarding the patient's case, he suggested a CBC and CMP and possibly bringing the patient in for observation. I did review the radiology results with the patient, I did tell her that there are some subtle changes and she is agreea ble to admission to the hospital at this time. 10/29/2017 10:18:27 pm I did speak with Dr. Zhao-still the hospitalist, he has accepted the patient in the hospitalist services for confusion and left hip pain, status post left hip surgery 2. Decision to Disposition Date: Oct 29, 2017 Decision to Disposition Time: 22:17 Depart Departure Latest Vital Signs Vital Signs Date Time Temp Pulse Resp B/P (MAP) Pulse Ox O2 Delivery O2 Flow Rate FiO2 10/29/17 19:54 98.3 93 14 136/80 96 Nasal Cannula Impression: Primary Impression: Confusion Additional Impressions: History of fracture of left hip History of femur fracture Left hip pain Condition: Improved Disposition: Admitted from ER Referrals: TODD TRACEY MD (PCP) Problem Qualifiers TIESHA ATKINS HAND PRINTED CIRCUIT BOARD ASSEMBLER-BC Oct 29, 2017 20:32
--- NOTE | 2017-10-29 21:10 | RADIOLOGY IMAGING REPORT ---
FACILITY: [facility] PATIENT NAME: Nanci Paul : 1950 MR: [id number] V: [id number] EXAM DATE: ORDERING PHYSICIAN: TIESHA ATKINS TECHNOLOGIST: Location: Patient: Nanci Paul : 1950 Visit/Account:[id number] Date of Sevice: 10/29/2017 Technique: HIP LEFT HISTORY: s/p hip fx x2 with revision Comparison studies: Left hip radiograph October 13, 2017 FINDINGS: Redemonstrated is an acute, oblique fracture through the proximal left femoral diaphysis an d exiting along the distal aspect of the shaft. There is progressive fracture fragment distraction wi th the proximal apex located medially. Noted is a left femoral tasneem with distal locking screws as well as a intramedullary screw traversing a subacute fracture involving the left intertrochanteric region femur. The alignment of the left hip is maintained. An avulsed fracture fragment is seen superior to the intramedullary tasneem. IMPRESSION: 1. Acute, oblique fracture involving the left femoral diaphysis with progressive fracture distractio n. 2. ORIF of a subacute intertrochanteric fracture of the left femur. Report Dictated By: Nicholas Gross DO at 10/29/2017 8:55 PM Report E-Signed By: Nicholas Gross DO at 10/29/2017 9:06 PM WSN:[id number]
[2017-10-29] MEDS ORDERED: fentaNYL CITR 100 MCG/2 ML AMP IVP ONE (21:30)
[2017-10-29 21:46] LABS: PLATELET COUNT, AUTOMATED 548 K/uL (150-450)
[2017-10-29 23:04] VITALS: BP 136/86
[2017-10-30] MEDS ORDERED: MELATONIN 3 MG TAB PO SCH (00:25)
[2017-10-30] MEDS ORDERED: FLUSH 10 ML SYR IVP PRN (00:25)
[2017-10-30] MEDS ORDERED: QUEtiapine FUM 25 MG TAB PO SCH (00:25)
[2017-10-30] MEDS ORDERED: ALBUTEROL/IPRATROPIUM 3 ML NEB NEB PRN (00:25)
[2017-10-30] MEDS ORDERED: INFLUENZA VIRUS VAC 0.5ML SYR IM ONLY ONE (00:25)
[2017-10-30] MEDS ORDERED: ONDANSETRON 4 MG/2 ML VIAL IVP PRN (00:25)
[2017-10-30] MEDS: APAP/HYDROCODONE 325/5 TAB PO PRN ×3 (00:49→14:39)
--- NOTE | 2017-10-30 00:50 | History & Physical ---
History of Present Illness Chief Complaint Hip Pain History of Present Illness 67F [facility] with [facility] pain and family concerned for ability to care for self at home. Pt states d/c from [facility] today after having femur Fx repaired. Was hospitalized 10.15-. Per pt had a couple of days hallucination during that time but these quickly resolved and she was doing well up to time of d/c. Was taken by sons significant other to rehab in [place] then for unclear reason decided she did not want to go. Brought to [place] where family was concerned for her and asked for welfare check on her. She was brought in by EMS after officers called them. She appears to be coherent, lucid and capable of making decisions on examination. States she would like to go home. History Problems: (1) History of femur fracture Status: Chronic (2) Hemorrhagic cerebrovascular accident (CVA) Status: Chronic (3) Hemiplegia affecting left nondominant side Status: Chronic (4) COPD (chronic obstructive pulmonary disease) Status: Chronic Home Meds Active Scripts Duloxetine Hcl (CYMBALTA) 60 Mg Capsule.dr, 60 MG PO QDAY, #30 CAP 6 Refills Prov:TODD TRACEY MD 09/30/17 Duloxetine Hcl (CYMBALTA) 30 Mg Capsule.dr, 30 MG PO QDAY, #7 CAP Prov:TODD TRACEY MD 09/30/17 Amitriptyline Hcl (AMITRIPTYLINE HCL) 25 Mg Tablet, 25 MG PO QHS, #30 TAB 3 Refills Prov:TODD TRACEY MD 09/30/17 Gabapentin (GABAPENTIN) 600 Mg Tablet, 600 MG PO 2-3XD, #90 CAP 4 Refills Prov:TODD TRACEY MD 09/30/17 Baclofen (BACLOFEN) 20 Mg Tablet, 20 MG PO BID PRN for SPASMS, #90 TAB 3 Refills Prov:TODD TRACEY MD 07/09/17 Cyanocobalamin (Vitamin B-12) (B-12) 1,000 Mcg Tablet, 1 TAB PO 2XW for 90 Days, #90 TAB 1 Refill Prov:TODD TRACEY MD 05/21/17 Metoprolol Tartrate (METOPROLOL TARTRATE) 100 Mg Tablet, 1 TAB PO BID, #180 TAB 3 Refills Prov:TODD TRACEY MD 04/29/17 Amlodipine Besylate (AMLODIPINE BESYLATE) 10 Mg Tablet, 1 TAB PO QDAY, #90 TAB 3 Refills Prov:TODD TRACEY MD 04/29/17 Reported Medications Cholecalciferol (Vitamin D3) (VITAMIN D3) 2,000 Unit Capsule, 2000 UNIT PO QDAY, CAPSULE 09/30/17 Docusate Sodium (COLACE) 100 Mg Capsule, 100 MG PO BID PRN for constipation, CAPSULE 09/30/17 Tramadol Hcl (TRAMADOL HCL) 50 Mg Tablet, 1 TAB PO Q6H PRN for pain, TAB 09/30/17 Allergies: Coded Allergies: aspirin (Verified Adverse Reaction, Mild, NAUSEA/VOMITING, 10/29/17) Patient History: FH: cancer FH: diabetes mellitus BROTHER Hx Smoking: Yes (1 PACK DAILY, UNABLE TO VARIFY INFO) Smoking Status: Smoker: Status Unknown Caffeine/Cups Per Day: OCC Hx Alcohol Use: No Hx Substance Use Disorder: No Social Drug Use: Never Review of Systems Constitutional: No Fever Neurological: No Confusion, No Weakness Gastrointestinal: No Nausea, No Vomiting Musculoskeletal: Pain (hip) Exam Vital Signs Vital Signs Date Time Temp Pulse Resp B/P (MAP) Pulse Ox O2 Delivery O2 Flow Rate FiO2 10/29/17 23:04 97.7 96 16 136/86 (103) 96 Nasal Cannula 2.0 General Appearance: Alert, Awake, No Acute Distress, Afebrile Neuro: No Gross deficits (chronic left side, no new deficit) Eyes: PERRLA ENT: Normal Neck: No Masses Cardiovascular: Normal Rhythm & Peripheral Pulses Respiratory: No Respiratory Distress, Clear to Auscultation Chest: No Tenderness GI: Abd Soft and Non-Tender Lymph: Cervical Nodes Benign Musculoskeletal: No Weakness/Pain Extremities: Soft and Non Tender, Warm, Pulses, Perfused; No Edema Integumentary: Skin Intact without Lesion / Mass Psych: Alert & Oriented X3, Appropriate Mood & Affect Medical Decision Making Data Points Result Diagram: 10/29/17213910/29/172139 Assessment and Plan Problems: (1) History of femur fracture Status: Chronic Assessment & Plan: Post ORIF at [facility], recovery complicated by delirium. Will consult PT/OT for evaluation. Was supposed to be going to [facility]. Pt voices desire to go home. XR appears to show maintained placement of tasneem and fixating screws. (2) COPD (chronic obstructive pulmonary disease) Status: Chronic Assessment & Plan: Chronic, stable. Baseline 2L NC, continue PRN Duoneb. (3) Hemiplegia affecting left nondominant side Status: Chronic Assessment & Plan: Secondary to CVA. Chronic, no new deficits. PT/OT. (4) Left hip pain Status: Acute Assessment & Plan: Xray shows ORIF L femur. Will begin [place] 5/325 PRN. Venous Thromboembolism Antithrombotics Is Pt On Any Antithrombotics?: Yes Exam Sepsis Risk: No Definite Risk PRICE MEREDITH CLEMENS DO Oct 30, 2017 00:50
[2017-10-30] MEDS ORDERED: HYDR-385 PO (01:40)
[2017-10-30] MEDS ORDERED: QUET25TA30 PO (01:43)
[2017-10-30] MEDS ORDERED: METO25TA93 PO (01:53)
[2017-10-30] MEDS ORDERED: CLOP75TA43 PO (01:53)
[2017-10-30 07:22] VITALS: BP 149/84
[2017-10-30 08:58] VITALS: Ht 149.9 cm; Wt 50.3 kg
[2017-10-30] MEDS ORDERED: CLOPIDOGREL BISULFATE 75MG TAB PO SCH (09:00)
[2017-10-30] MEDS ORDERED: ENOXAPARIN 40 MG/0.4ML SYR SC SCH (09:00)
[2017-10-30] MEDS ORDERED: GABAPENTIN 300 MG CAP PO SCH (09:00)
[2017-10-30] MEDS ORDERED: METOPROLOL TART 50 MG TAB PO SCH (09:00)
[2017-10-30] MEDS ORDERED: NS(*) 0.9% 1000 ML BAG 1,000 ML IV ONE (09:50)
--- NOTE | 2017-10-30 11:47 | Hospitalist Progress Note ---
Subjective Progress Notes Subjective She has complaints of dizziness this morning. Also the nurse reports she has not urinated since admission. Patient Complains of: Cardiovascular: No: Chest Pain Respiratory: No: Shortness of Breath Physical Exam Vital Signs Date Time Temp Pulse Resp B/P (MAP) Pulse Ox O2 Delivery O2 Flow Rate FiO2 10/30/17 07:27 91 Nasal Cannula 10/30/17 07:22 98.5 100 16 149/84 (105) 10/29/17 23:09 2.0 General Appearance: Alert, Awake, No Acute Distress Neuro: No Gross deficits Cardiovascular: Regular Rate and Rhythm Respiratory: No Respiratory Distress, Clear to Auscultation GI: Soft and Non-Tender Extremities: Warm, Perfused; No Edema Psych: Alert & Oriented X3, Appropriate Mood & Affect Result Diagram: 10/29/17213910/29/172139 Assessment and Plan Problems: (1) History of femur fracture Status: Chronic Assessment & Plan: Post ORIF at [facility], recovery complicated by delirium. Will consult PT/OT for evaluation. [facility]. Pt voi omisés desire to go home. XR appears to show maintained placement of tasneem and fixating screws. (2) COPD (chronic obstructive pulmonary disease) Status: Chronic Assessment & Plan: Chronic, stable. Baseline 2L NC, continue PRN Duoneb. (3) Hemiplegia affecting left nondominant side Status: Chronic Assessment & Plan: Secondary to CVA. Chronic, no new deficits. PT/OT. (4) Left hip pain Status: Acute Assessment & Plan: Xray shows ORIF L femur. Will begin [place] 5/325 PRN. (5) Dehydration Status: Acute Assessment & Plan: She reports she has not been eating or drinking for 2 days. She will receive IV hydration today. Continue to monitor urinary status. Exam Sepsis Risk: No Definite Risk CHAMP BOYER BAR BACK Oct 30, 2017 11:47
--- NOTE | 2017-10-30 13:32 | Hospitalist Depart ---
Discharge Summary Reason for Hosp/Final Diag: (1) History of femur fracture Status: Chronic Hospital Course & Plan: Post ORIF at [facility], recovery complicated by delirium. Will consult PT/OT for evaluation. Was supposed to be going to [facility]. Pt voices desire to go home. XR appears to show maintained placement of tasneem and fixating screws. Patient will be discharged to [facility] for further rehabilitation. (2) COPD (chronic obstructive pulmonary disease) Status: Chronic Hospital Course & Plan: Chronic, stable. Baseline 2L NC, continue PRN Duoneb. (3) Hemiplegia affecting left nondominant side Status: Chronic Hospital Course & Plan: Secondary to CVA. Chronic, no new deficits. PT/OT. (4) Left hip pain Status: Acute Hospital Course & Plan: Xray shows ORIF L femur. Will begin [place] 5/325 PRN. (5) Dehydration Status: Acute Hospital Course & Plan: Patient had no difficulty urinating and reports improvement in symptoms. 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 Follow Up For: ADL Assistance Discharge Instructions Home Meds Active Scripts Duloxetine Hcl (CYMBALTA) 60 Mg Capsule.dr, 60 MG PO QDAY, #30 CAP 6 Refills Prov:TODD TRACEY MD 09/30/17 Duloxetine Hcl (CYMBALTA) 30 Mg Capsule.dr, 30 MG PO QDAY, #7 CAP Prov:TODD TRACEY MD 09/30/17 Amitriptyline Hcl (AMITRIPTYLINE HCL) 25 Mg Tablet, 25 MG PO QHS, #30 TAB 3 Refills Prov:TODD TRACEY MD 09/30/17 Gabapentin (GABAPENTIN) 600 Mg Tablet, 600 MG PO 2-3XD, #90 CAP 4 Refills Prov:TODD TRACEY MD 09/30/17 Baclofen (BACLOFEN) 20 Mg Tablet, 20 MG PO BID PRN for SPASMS, #90 TAB 3 Refills Prov:TODD TRACEY MD 07/09/17 Cyanocobalamin (Vitamin B-12) (B-12) 1,000 Mcg Tablet, 1 TAB PO 2XW for 90 Days, #90 TAB 1 Refill Prov:TODD TRACEY MD 05/21/17 Metoprolol Tartrate (METOPROLOL TARTRATE) 100 Mg Tablet, 1 TAB PO BID, #180 TAB 3 Refills Prov:TODD TRACEY MD 04/29/17 Amlodipine Besylate (AMLODIPINE BESYLATE) 10 Mg Tablet, 1 TAB PO QDAY, #90 TAB 3 Refills Prov:TODD TRACEY MD 04/29/17 Reported Medications Metoprolol Tartrate (METOPROLOL TARTRATE) 25 Mg Tablet, 25 MG PO BID, TAB 10/30/17 Clopidogrel Bisulfate (PLAVIX) 75 Mg Tablet, 1 TAB PO QDAY, TAB 10/30/17 Quetiapine Fumarate (SEROQUEL) 25 Mg Tablet, 25 MG PO HS 10/30/17 Hydrocodone Bit/Acetaminophen (HYDROCODON-ACETAMINOPHEN 5-325) 1 Each Tablet, 1 EACH PO Q6H for PAIN, TAB 10/30/17 Cholecalciferol (Vitamin D3) (VITAMIN D3) 2,000 Unit Capsule, 2000 UNIT PO QDAY, CAPSULE 09/30/17 Docusate Sodium (COLACE) 100 Mg Capsule, 100 MG PO BID PRN for constipation, CAPSULE 09/30/17 Discontinued Reported Medications Tramadol Hcl (TRAMADOL HCL) 50 Mg Tablet, 1 TAB PO Q6H PRN for pain, TAB 09/30/17 Diet: Regular Activity: As Tolerated, With Walker Venous Thromboembolism Antithrombotics Is Pt On Any Antithrombotics?: Yes CHAMP BOYER Oct 30, 2017 13:32
[2017-10-30] MEDS ORDERED: GABAPENTIN 300 MG CAP PO ONE (21:00)
[2017-11-03] MEDS ORDERED: HYDR-385 PO (17:25)
== END 2017-10-30 13:29 ==
LOC: ER 20:04 → MED 22:32 → INTOOBSV 22:32 → MED 22:54
PROVIDERS: ADMIT Internal Medicine; ATTEND Internal Medicine
DX: M25.552 Pain in left hip (principal); R41.0 Disorientation, unspecified; J44.9 Chronic obstructive pulmonary disease, unspecified; G81.94 Hemiplegia, unspecified affecting left nondominant side; E86.0 Dehydration; R42 Dizziness and giddiness
CPT/HCPCS: 73502; 85025; 96372; 96374; 97163; 97166; 99284; A9270; G0378; J1650; J3010; J7030; 82040; 82247; 82310; 82374; 82435; 82565; 82947; 84075; 84132; 84155; 84295; 84450; 84460; 84520

== ENCOUNTER → 2017-11-05 | Outpatient (REF) | payer MEDICARE ==
[2017-10-30 08:58] VITALS: BMI 22.4
[~2017-11-05] MED LIST changes: -AMLO-113 PO; +AMLO-99 PO; +CLOP75TA43 PO; +METO25TA93 PO; +QUET25TA30 PO
== END ==
LOC: ZZLCC 17:03
PROVIDERS: ATTEND Nurse Practitioner Family
DX: D64.9 Anemia, unspecified (principal); I10 Essential (primary) hypertension; E05.20 Thyrotoxicosis with toxic multinodular goiter without thyrotoxic crisis or storm
CPT/HCPCS: 82040; 82247; 82310; 82374; 82435; 82565; 82947; 84075; 84132; 84155; 84295; 84443; 84450; 84460; 84520; 85027

== ENCOUNTER → 2017-11-30 | Outpatient (CLI) | payer MEDICARE ==
[2017-10-30 08:58] VITALS: BMI 22.4
[~2017-11-30] MED LIST changes: +ACET-2146 PO; +AMLO-113 PO; -AMLO-99 PO; +METO50TA19 PO
[2017-11-30 12:14] LABS: PLATELET COUNT, AUTOMATED 374 K/uL (150-450)
--- NOTE | 2017-11-30 12:36 | RADIOLOGY IMAGING REPORT ---
FACILITY: [facility] - [place] PATIENT NAME: Nanci Paul : 1950 MR: [id number] V: [id number] EXAM DATE: ORDERING PHYSICIAN: TODD TRACEY TECHNOLOGIST: Location: [facility] [place] Patient: Nanci Paul : 1950 Visit/Account:[id number] Date of Sevice: 11/30/2017 FEMUR LEFT HISTORY: RECENT SURGERY Four view examination Comparison to previous study of 10/29/2017. FINDINGS: No change in the overall appearance of the intramedullary tasneem traversing the entire length of the lef t femur. The overall degree of 1.7 mm cortical distraction of the distal medial femoral shaft relati ve to the proximal fracture components similar in position and alignment to the previous study. The involved greater trochanter is also similar in position. No change in the femoral neck compression s crew positioning or alignment. Left hemipelvis similar in appearance. Distal lateral cortical offse t similar in appearance. Distal intramedullary tasneem and unchanged in justice alignment. IMPRESSION: 1. No change in the appearance of the left hip with respect to the intramedullary tasneem or with respect to the the degree of femoral distraction of the oblique mid femoral fracture. No inter krista healing callus formation noted. Report Dictated By: Nhna Husain MD at 11/30/2017 12:23 PM Report E-Signed By: Nhna Husain MD at 11/30/2017 12:32 PM WSN:[id number]
== END ==
LOC: RAD 11:37
PROVIDERS: ATTEND Internal Medicine
DX: I61.9 Nontraumatic intracerebral hemorrhage, unspecified (principal); G81.94 Hemiplegia, unspecified affecting left nondominant side; Z87.81 Personal history of (healed) traumatic fracture; J44.9 Chronic obstructive pulmonary disease, unspecified; E53.8 Deficiency of other specified B group vitamins; E61.1 Iron deficiency; E05.90 Thyrotoxicosis, unspecified without thyrotoxic crisis or storm; I10 Essential (primary) hypertension; E55.9 Vitamin D deficiency, unspecified
CPT/HCPCS: 36415; 82040; 82247; 82306; 82310; 82374; 82435; 82565; 82607; 82728; 82947; 83540; 83550; 84075; 84132; 84155; 84295; 84439; 84443; 84450; 84460; 84520; 85025

== ENCOUNTER 2017-12-20 12:38 | Emergency (ER) | payer MEDICARE ==
[2017-10-30 08:58] VITALS: Wt 54.4 kg
[2017-12-20] MEDS ORDERED: ONDANSETRON 4 MG/2 ML VIAL IVP PRN (12:40)
--- NOTE | 2017-12-20 12:44 | ER Report ---
History and Physical Time Seen By MD: 12:35 (BEBA CROCKER MD) HPI/ROS CHIEF COMPLAINT: left sided weakness HISTORY OF PRESENT ILLNESS: Patient is a 63-year-old female who has had prior ischemic strokes, last known well time was before 10 PM last night, who called EMS with new left-sided paralysis with which she woke up. Patient does not have headache, denies falls, or trauma. REVIEW OF SYSTEMS: Constitutional: No fever, no chills. Eyes: No discharge. ENT: No sore throat. Cardiovascular: No chest pain, no palpitations. Respiratory: No cough, no shortness of breath. Gastrointestinal: No abdominal pain, no vomiting. Genitourinary: No hematuria. Musculoskeletal: No back pain. Skin: No rashes. Neurological: No headache. Remainder of the 14 system rev: Yes (BEBA CROCKER MD) Allergies: Coded Allergies: aspirin (Verified Adverse Reaction, Mild, NAUSEA/VOMITING, 10/29/17) Home Meds Active Scripts Hydrocodone Bit/Acetaminophen (HYDROCODON-ACETAMINOPHEN 5-325) 1 Each Tablet, 1 EACH PO BID PRN for pain, #60 TAB 0 Refills Prov:TODD TRACEY MD 11/30/17 Clopidogrel Bisulfate (PLAVIX) 75 Mg Tablet, 1 TAB PO QDAY, #30 TAB 5 Refills Prov:TODD TRACEY MD 11/30/17 Quetiapine Fumarate (SEROQUEL) 25 Mg Tablet, 25 MG PO HS, #30 TAB 3 Refills Prov:TODD TRACEY MD 11/30/17 Gabapentin (GABAPENTIN) 600 Mg Tablet, 600 MG PO BID, #60 CAP 4 Refills Prov:TODD TRACEY MD 11/30/17 Cyanocobalamin (Vitamin B-12) (B-12) 1,000 Mcg Tablet, 1 TAB PO QDAY for 30 Days, #90 TAB 3 Refills Prov:TODD TRACEY MD 11/30/17 Metoprolol Succinate (METOPROLOL SUCCINATE) 50 Mg Tab.er.24h, 1 TAB PO QDAY, #30 TAB 6 Refills Prov:TODD TRACEY MD 11/30/17 Reported Medications Acetaminophen 500 Mg Tab (ACETAMINOPHEN EXTRA STRENGTH) 500 Mg Tablet, 500 MG PO BID PRN for pain, TAB 10/1/18 Cholecalciferol (Vitamin D3) (VITAMIN D3) 2,000 Unit Capsule, 2000 UNIT PO QDAY, CAPSULE 09/30/17 Docusate Sodium (COLACE) 100 Mg Capsule, 100 MG PO BID PRN for constipation, CAPSULE 09/30/17 Reviewed Nurses Notes: Yes Old Medical Records Reviewed: Yes (BEBA CROCKER MD) Hx Smoking: Yes (1 PACK DAILY, UNABLE TO VARIFY INFO) Smoking Status: Smoker: Status Unknown Hx Substance Use Disorder: No Hx Alcohol Use: No (BEBA CROCKER MD) Constitutional Vital Sign - Last 24 Hours 12/20/17 12/20/17 12/20/17 12/20/17 12:38 12:53 12:59 13:08 Pulse ? 84 Resp 10 B/P (MAP) 191/112 (138) Pulse Ox 94 12/20/17 12/20/17 12/20/17 12/20/17 13:11 13:23 13:25 13:30 Temp 99.0 Pulse 81 ??? Resp 16 B/P (MAP) 191/112 176/99 (124) 160/85 (110) Pulse Ox 94 O2 Delivery Room Air 12/20/17 12/20/17 12/20/17 12/20/17 13:38 13:53 14:00 14:08 Pulse 78 81 79 Resp 23 27 29 B/P (MAP) 159/83 (108) Pulse Ox 92 93 92 O2 Delivery Nasal Cannula Nasal Cannula Nasal Cannula O2 Flow Rate 2 2 2 12/20/17 14:23 Pulse 77 Resp 31 Pulse Ox 94 O2 Delivery Nasal Cannula O2 Flow Rate 2 (HELLEN CROCKER MD) Physical Exam General Appearance: The patient is alert, has no immediate need for airway protection and no signs of toxicity. [ ] Eyes: Pupils equal and round no pallor or injection. ENT, Mouth: Mucous membranes are moist. Respiratory: bilateral wheezes with prolonged expiratory phase Cardiovascular: Regular rate and rhythm. no m/r/g. No carotid bruits Gastrointestinal: Abdomen is soft and non tender, no masses, bowel sounds normal. Neurological: Patient is alert and oriented 4. Cranial nerves II-12 intact. No dysdiadochokinesia. Normal finger nose to finger with only very slight tremor on left side. Downgoing Babinski. 5 out of 5 muscle strength in all extremities. Upon sensory exam, patient has decreased light touch to the left side of face, however increased sensation to pinprick. On left upper extremity, she has decreased sensation to both light touch and pinprick. On left lower extremity, she has normal pinprick and slight decrease in sensation. She has no hemineglect. NIHSS 0. Skin: Warm and dry, no rashes. Musculoskeletal: Neck is supple non tender. Extremities are nontender, nonswollen and have full range of motion, with exception of left lower extremity; due to multiple hip injuries pt has left sided extremity shortening. DIFFERENTIAL DIAGNOSIS: After history and physical exam differential diagnosis was considered for altered mental status including but not limited to hypoglycemia, infectious process, electrolyte abnormality, head injury and intoxicants. (BEBA CROCKER MD) Medical Decision Making Data Points Result Diagram: 12/20/17 1215 12/20/17 1215 Laboratory Hematology Test 12/20/17 12:15 12/20/17 13:29 Red Blood Count 4.51 M/uL (4.17-5.56) Mean Corpuscular Volume 89.1 fL (80.0-96.0) Mean Corpuscular Hemoglobin 29.6 pg (26.0-33.0) Mean Corpuscular Hemoglobin Concent 33.2 g/dL (32.0-36.0) Red Cell Distribution Width 16.2 % (11.5-14.5) Mean Platelet Volume 8.1 fL (7.2-11.1) Neutrophils (%) (Auto) 57.8 % (39.4-72.5) Lymphocytes (%) (Auto) 32.6 % (17.6-49.6) Monocytes (%) (Auto) 5.2 % (4.1-12.4) Eosinophils (%) (Auto) 3.9 % (0.4-6.7) Basophils (%) (Auto) 0.5 % (0.3-1.4) Nucleated RBC Relative Count (auto) 0.0 /100WBC Neutrophils # (Auto) 4.9 K/uL (2.0-7.4) Lymphocytes # (Auto) 2.8 K/uL (1.3-3.6) Monocytes # (Auto) 0.4 K/uL (0.3-1.0) Eosinophils # (Auto) 0.3 K/uL (0.0-0.5) Basophils # (Auto) 0.0 K/uL (0.0-0.1) Nucleated RBC Absolute Count (auto) 0.00 K/uL Prothrombin Time 14.1 seconds (12.0-14.4) Prothromb Time International Ratio 1.08 Activated Partial Thromboplast Time 30 seconds (23-35) Sodium Level 138 mmol/L (137-145) Potassium Level 3.8 mmol/L (3.5-5.0) Chloride Level 102 mmol/L (98-107) Carbon Dioxide Level 30 mmol/L (22-31) Blood Urea Nitrogen 11 mg/dl (7-18) Creatinine 0.40 mg/dl (0.52-1.04) Glomerular Filtration Rate Calc > 60.0 Random Glucose 98 mg/dl (75-110) Calcium Level 9.5 mg/dl (8.4-10.2) Total Bilirubin 0.4 mg/dl (0.2-1.3) Aspartate Amino Transf (AST/SGOT) 23 U/L (0-35) Alanine Aminotransferase (ALT/SGPT) 23 U/L (0-56) Alkaline Phosphatase 45 U/L (0-126) Troponin I < 0.012 ng/ml Total Protein 7.6 g/dl (6.3-8.2) Albumin 3.7 g/dl (3.5-5.0) Urine Color Colorless Urine Clarity Clear Urine pH 7.0 pH (4.8-9.5) Urine Specific Onward 1.018 Urine Protein Negative mg/dL (NEGATIVE) Urine Glucose (UA) Negative mg/dL (NEGATIVE) Urine Ketones Negative mg/dL (NEGATIVE) Urine Blood Negative (NEGATIVE) Urine Nitrite Negative (NEGATIVE) Urine Bilirubin Negative (NEGATIVE) Urine Urobilinogen Negative mg/dL (0.2-1.9) Urine Leukocyte Esterase Negative (NEGATIVE) Urine RBC None /HPF (0-2/HPF) Urine WBC 1 /HPF (0-5/HPF) Urine Squamous Epithelial Cells Many /LPF (</=FEW) Urine Bacteria Negative /HPF (NONE-FEW) Urine Mucus None /HPF (NONE-FEW) Chemistry Test 12/20/17 12:15 12/20/17 13:29 White Blood Count 8.5 k/uL (4.5-11.0) Red Blood Count 4.51 M/uL (4.17-5.56) Hemoglobin 13.3 g/dL (12.0-16.0) Hematocrit 40.2 % (34.0-47.0) Mean Corpuscular Volume 89.1 fL (80.0-96.0) Mean Corpuscular Hemoglobin 29.6 pg (26.0-33.0) Mean Corpuscular Hemoglobin Concent 33.2 g/dL (32.0-36.0) Red Cell Distribution Width 16.2 % (11.5-14.5) Platelet Count 281 K/uL (150-450) Mean Platelet Volume 8.1 fL (7.2-11.1) Neutrophils (%) (Auto) 57.8 % (39.4-72.5) Lymphocytes (%) (Auto) 32.6 % (17.6-49.6) Monocytes (%) (Auto) 5.2 % (4.1-12.4) Eosinophils (%) (Auto) 3.9 % (0.4-6.7) Basophils (%) (Auto) 0.5 % (0.3-1.4) Nucleated RBC Relative Count (auto) 0.0 /100WBC Neutrophils # (Auto) 4.9 K/uL (2.0-7.4) Lymphocytes # (Auto) 2.8 K/uL (1.3-3.6) Monocytes # (Auto) 0.4 K/uL (0.3-1.0) Eosinophils # (Auto) 0.3 K/uL (0.0-0.5) Basophils # (Auto) 0.0 K/uL (0.0-0.1) Nucleated RBC Absolute Count (auto) 0.00 K/uL Prothrombin Time 14.1 seconds (12.0-14.4) Prothromb Time International Ratio 1.08 Activated Partial Thromboplast Time 30 seconds (23-35) Glomerular Filtration Rate Calc > 60.0 Calcium Level 9.5 mg/dl (8.4-10.2) Total Bilirubin 0.4 mg/dl (0.2-1.3) Aspartate Amino Transf (AST/SGOT) 23 U/L (0-35) Alanine Aminotransferase (ALT/SGPT) 23 U/L (0-56) Alkaline Phosphatase 45 U/L (0-126) Troponin I < 0.012 ng/ml Total Protein 7.6 g/dl (6.3-8.2) Albumin 3.7 g/dl (3.5-5.0) Urine Color Colorless Urine Clarity Clear Urine pH 7.0 pH (4.8-9.5) Urine Specific Onward 1.018 Urine Protein Negative mg/dL (NEGATIVE) Urine Glucose (UA) Negative mg/dL (NEGATIVE) Urine Ketones Negative mg/dL (NEGATIVE) Urine Blood Negative (NEGATIVE) Urine Nitrite Negative (NEGATIVE) Urine Bilirubin Negative (NEGATIVE) Urine Urobilinogen Negative mg/dL (0.2-1.9) Urine Leukocyte Esterase Negative (NEGATIVE) Urine RBC None /HPF (0-2/HPF) Urine WBC 1 /HPF (0-5/HPF) Urine Squamous Epithelial Cells Many /LPF (</=FEW) Urine Bacteria Negative /HPF (NONE-FEW) Urine Mucus None /HPF (NONE-FEW) Coagulation Test 12/20/17 12:15 Prothrombin Time 14.1 seconds Prothromb Time International Ratio 1.08 Activated Partial Thromboplast Time 30 seconds Urinalysis Test 12/20/17 13:29 Urine Color Colorless Urine Clarity Clear Urine pH 7.0 pH (4.8-9.5) Urine Specific Onward 1.018 Urine Protein Negative mg/dL (NEGATIVE) Urine Glucose (UA) Negative mg/dL (NEGATIVE) Urine Ketones Negative mg/dL (NEGATIVE) Urine Blood Negative (NEGATIVE) Urine Nitrite Negative (NEGATIVE) Urine Bilirubin Negative (NEGATIVE) Urine Urobilinogen Negative mg/dL (0.2-1.9) Urine Leukocyte Esterase Negative (NEGATIVE) Urine RBC None /HPF (0-2/HPF) Urine WBC 1 /HPF (0-5/HPF) Urine Squamous Epithelial Cells Many /LPF (</=FEW) Urine Bacteria Negative /HPF (NONE-FEW) Urine Mucus None /HPF (NONE-FEW) (HELLEN CROCKER MD) EKG/Imaging EKG Interpretation 12 lead EKG: Rhythm: Normal sinus rhythm [place]: Normal QRS: Normal ST segments: Normal Monitor Interpretation: Normal Sinus Rhythm (BEBA CROCKER MD) ED Course/Re-evaluation ED Course 3 weeks of left sided paresthesias. Otherwise no focal neuro complaints. Has been referred to a neurologist by her PCM, but has not made an appointment. CT/CTA shows left subclavian artery stenosis. I do not think this is the cause of her symptoms, but will go ahead and place her on EC ASA daily. She has a normal neuro exam and an NIH stroke scale of 0. I will have her follow up with a neurologist just as her PCM had advised. I otherwise do not see an acute cause of her symptoms. Decision to Disposition Date: Dec 20, 2017 Decision to Disposition Time: 15:49 (HELLEN CROCKER MD) Depart Departure Latest Vital Signs Vital Signs Date Time Temp Pulse Resp B/P (MAP) Pulse Ox O2 Delivery O2 Flow Rate FiO2 12/20/17 14:23 77 31 94 Nasal Cannula 2 12/20/17 14:00 159/83 (108) 12/20/17 13:11 99.0 (HELLEN CROCKER MD) Impression: Primary Impression: Paresthesia Condition: Improved Disposition: HOME OR SELF-CARE Referrals: TODD TRACEY MD (PCP) ALY CHAMBERS MD Patient Instructions: Paresthesia (ED) BEBA CROCKER MD Dec 20, 2017 12:44 HELLEN CROCKER MD Dec 20, 2017 15:50
[2017-12-20 13:06] LABS: PLATELET COUNT, AUTOMATED 281 K/uL (150-450)
--- NOTE | 2017-12-20 13:08 | EKG ---
FACILITY: [facility] - [place] PATIENT NAME: LUCA WYATT : [id number] MR: [id number] V: [id number] EXAM DATE: ORDERING PHYSICIAN: BEBA CROCKER TECHNOLOGIST: MARY Test Reason : POSS STROKE Blood Pressure : / mmHG Vent. Rate : 077 BPM Atrial Rate : 077 BPM P-R Int : 150 ms QRS Dur : 066 ms QT Int : 414 ms P-R-T Axes : 071 047 067 degrees QTc Int : 468 ms Normal sinus rhythm Normal ECG When compared with ECG of 13-OCT-2017 10:45, No significant change was found Confirmed by Catarino Antonio ([id number]) on 12/20/2017 2:15:44 PM Referred By: Randy CROCKER Confirmed By:Catarino Benson
[2017-12-20 13:10] LABS: INR 1.08
[2017-12-20] MEDS ORDERED: IOPAMIDOL 76% 75 ML INFUS BTL 75 ML ONE (13:22)
[2017-12-20] MEDS ORDERED: NS(*) 0.9% 50 ML BAG 50 ML ONE (13:22)
--- NOTE | 2017-12-20 13:47 | RADIOLOGY IMAGING REPORT ---
FACILITY: [facility] PATIENT NAME: Nanci Paul : 1950 MR: [id number] V: [id number] EXAM DATE: ORDERING PHYSICIAN: BEBA CROCKER TECHNOLOGIST: Location: [facility] - [place] Patient: Nanci Paul : 1950 Visit/Account:[id number] Date of Sevice: 12/20/2017 CHEST SINGLE AP Indication: Altered mental status. Comparison: 10/13/2017 Findings: The right hilum appears mildly prominent and asymmetric to the left side. This was seen on the prior study. Right infrahilar opacities may simply reflect prominent vessels but atelectasis or early infil trate here cannot be excluded. Lungs otherwise clear and well aerated. No effusion or pneumothorax. H eart size is normal. Arthroscopic calcifications are seen within the aortic arch. IMPRESSION: 1. Prominent right hilum with right infrahilar opacities which may reflect prominent vascularity. Can not exclude atelectasis or early infiltrate in the right infrahilar region. 2. Atherosclerotic thoracic aorta. Report Dictated By: Roberto Shelley at 12/20/2017 1:37 PM Report E-Signed By: Roberto Shelley at 12/20/2017 1:43 PM WSN:[id number]
--- NOTE | 2017-12-20 13:50 | RADIOLOGY IMAGING REPORT ---
FACILITY: PATIENT NAME: Nanci Paul : 1950 MR: [id number] V: [id number] EXAM DATE: ORDERING PHYSICIAN: BEBA CROCKER TECHNOLOGIST: Location: [facility] - [place] Patient: Nanci Paul : 1950 Visit/Account:[id number] Date of Sevice: 12/20/2017 HEAD W/O CONTRAST, CTA NECK/CAROTIDS W W/O CONTR, CT ANGIOGRAM HEAD W/ CONTRAST HISTORY: left sided weakness TECHNIQUE: A noncontrast CT scan of the brain was performed. Overlapping thin sections were then o btained during a bolus of IV contrast from the aortic arch through the vertex. Image data was sent to an independent workstation where 3-D reconstruction was performed. 3 images we re created according to reconstruction protocol developed by the radiologist on the facility radiolog y staff. Remote Encoding Operations Supervisor images are stored on PACS. One of the following dose optimization techniques was utilized in the performance of this exam: Autom ated exposure control; adjustment of the mA and/or kV according to the patient's size; or use of an i terative reconstruction technique. Specific details can be referenced in the facility's radiology C T exam operational policy. Measurements of the internal carotid arteries were performed according to NASCET criteria. . Contrast: 75 mL Isovue-370 COMPARISON STUDIES: July 16, 2017 FINDINGS: The precontrast CT scan of the brain demonstrates no evidence of acute intracranial hemorrhage. 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 There is no evidence of extra-axial jose carlos ection or hydrocephalus. There is no evidence of intracranial mass lesion. The lea-white junction is intact throughout. Angiographic findings: Aortic arch and great vessels: At the origin of the right subclavian artery, there is calcific plaq ue present. There is a 50% stenosis at the origin of this vessel. There is calcific plaque present at the origin of the innominate artery and left common carotid arter y. There is no significant stenosis present at the origin of these vessels Right CCA / ICA: There is extensive calcific plaque at the carotid bifurcation. There is no evidenc e of significant stenosis at the origin of the right internal carotid artery. Left CCA / ICA: There is extensive atherosclerotic plaque along the distal anterior aspect of the c ommon carotid artery. There is mild calcific plaque present at the carotid bifurcation. There is no s ignificant stenosis identified. Vertebro-basilar: Negative. The left vertebral artery is dominant. The proximal right vertebral art jacquelin does not fill The distal right vertebral artery reconstitutes at the level of C5. The distal righ t vertebral artery is diminutive. The distal right vertebral artery does communicate with the basilar artery. [place] of [place]: Negative. There is no evidence of abnormality of the right middle cerebral artery or its vascular territory. Other vascular findings: None significant. Additional non-angiographic findings: There is heterogeneity of the thyroid gland. This can be further evaluated with ultrasound if clinica lly indicated. IMPRESSION: No acute abnormality identified. There is no evidence of acute abnormality of the brain parenchyma. T here is no significant acute vascular abnormality identified. There is a 50% stenosis at the origin of the left subclavian artery. The left vertebral artery is dominant. The right vertebral artery is discontinuous. The distal left v ertebral artery is diminutive and reconstitutes at the level of C5. Incidental note is made of heterogeneity of the thyroid gland. Report Dictated By: Alexey Becerra at 12/20/2017 1:13 PM Report E-Signed By: Alexey Becerra at 12/20/2017 1:47 PM WSN:[id number]
--- NOTE | 2017-12-20 13:51 | RADIOLOGY IMAGING REPORT ---
FACILITY: [facility] PATIENT NAME: Nanci Paul : 1950 MR: [id number] V: [id number] EXAM DATE: ORDERING PHYSICIAN: BEBA CROCKER TECHNOLOGIST: [place] [facility] [place]anci [place] : 1950 Visit/Account:[id number] Date of Sevice: 12/20/2017 HEAD W/O CONTRAST, CTA NECK/CAROTIDS W W/O CONTR, CT ANGIOGRAM HEAD W/ CONTRAST HISTORY: left sided weakness TECHNIQUE: A noncontrast CT scan of the brain was performed. Overlapping thin sections were then o btained during a bolus of IV contrast from the aortic arch through the vertex. Image data was sent to an independent workstation where 3-D reconstruction was performed. 3 images we re created according to reconstruction protocol developed by the radiologist on the facility radiolog y staff. New Car Inspector images are stored on PACS. One of the following dose optimization techniques was utilized in the performance of this exam: Autom ated exposure control; adjustment of the mA and/or kV according to the patient's size; or use of an i terative reconstruction technique. Specific details can be referenced in the facility's radiology C T exam operational policy. Measurements of the internal carotid arteries were performed according to NASCET criteria. . Contrast: 75 mL Isovue-370 COMPARISON STUDIES: July 16, 2017 FINDINGS: The precontrast CT scan of the brain demonstrates no evidence of acute intracranial hemorrhage. 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 There is no evidence of extra-axial jose carlos ection or hydrocephalus. There is no evidence of intracranial mass lesion. The lea-white junction is intact throughout. Angiographic findings: Aortic arch and great vessels: At the origin of the right subclavian artery, there is calcific plaq ue present. There is a 50% stenosis at the origin of this vessel. There is calcific plaque present at the origin of the innominate artery and left common carotid arter y. There is no significant stenosis present at the origin of these vessels Right CCA / ICA: There is extensive calcific plaque at the carotid bifurcation. There is no evidenc e of significant stenosis at the origin of the right internal carotid artery. Left CCA / ICA: There is extensive atherosclerotic plaque along the distal anterior aspect of the c ommon carotid artery. There is mild calcific plaque present at the carotid bifurcation. There is no s ignificant stenosis identified. Vertebro-basilar: Negative. The left vertebral artery is dominant. The proximal right vertebral art jacquelin does not fill The distal right vertebral artery reconstitutes at the level of C5. The distal righ t vertebral artery is diminutive. The distal right vertebral artery does communicate with the basilar artery. [place] of [place]: Negative. There is no evidence of abnormality of the right middle cerebral artery or its vascular territory. Other vascular findings: None significant. Additional non-angiographic findings: There is heterogeneity of the thyroid gland. This can be further evaluated with ultrasound if clinica lly indicated. IMPRESSION: No acute abnormality identified. There is no evidence of acute abnormality of the brain parenchyma. T here is no significant acute vascular abnormality identified. There is a 50% stenosis at the origin of the left subclavian artery. The left vertebral artery is dominant. The right vertebral artery is discontinuous. The distal left v ertebral artery is diminutive and reconstitutes at the level of C5. Incidental note is made of heterogeneity of the thyroid gland. Report Dictated By: Alexey Becerra at 12/20/2017 1:13 PM Report E-Signed By: Alexey Becerra at 12/20/2017 1:47 PM WSN:[id number]
--- NOTE | 2017-12-20 13:51 | RADIOLOGY IMAGING REPORT ---
[place] [facility] [place]IENT NAME: Nanci Paul : 1950 MR: [id number] V: [id number] EXAM DATE: ORDERING PHYSICIAN: BEBA CROCKER TECHNOLOGIST: Location: [facility] Patient: Nanci Paul : 1950 Visit/Account:[id number] Date of Sevice: 12/20/2017 HEAD W/O CONTRAST, CTA NECK/CAROTIDS W W/O CONTR, CT ANGIOGRAM HEAD W/ CONTRAST HISTORY: left sided weakness TECHNIQUE: A noncontrast CT scan of the brain was performed. Overlapping thin sections were then o btained during a bolus of IV contrast from the aortic arch through the vertex. Image data was sent to an independent workstation where 3-D reconstruction was performed. 3 images we re created according to reconstruction protocol developed by the radiologist on the facility radiolog y staff. Search Advertising Strategist images are stored on PACS. One of the following dose optimization techniques was utilized in the performance of this exam: Autom ated exposure control; adjustment of the mA and/or kV according to the patient's size; or use of an i terative reconstruction technique. Specific details can be referenced in the facility's radiology C T exam operational policy. Measurements of the internal carotid arteries were performed according to NASCET criteria. . Contrast: 75 mL Isovue-370 COMPARISON STUDIES: July 16, 2017 FINDINGS: The precontrast CT scan of the brain demonstrates no evidence of acute intracranial hemorrhage. 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 There is no evidence of extra-axial jose carlos ection or hydrocephalus. There is no evidence of intracranial mass lesion. The lea-white junction is intact throughout. Angiographic findings: Aortic arch and great vessels: At the origin of the right subclavian artery, there is calcific plaq ue present. There is a 50% stenosis at the origin of this vessel. There is calcific plaque present at the origin of the innominate artery and left common carotid arter y. There is no significant stenosis present at the origin of these vessels Right CCA / ICA: There is extensive calcific plaque at the carotid bifurcation. There is no evidenc e of significant stenosis at the origin of the right internal carotid artery. Left CCA / ICA: There is extensive atherosclerotic plaque along the distal anterior aspect of the c ommon carotid artery. There is mild calcific plaque present at the carotid bifurcation. There is no s ignificant stenosis identified. Vertebro-basilar: Negative. The left vertebral artery is dominant. The proximal right vertebral art jacquelin does not fill The distal right vertebral artery reconstitutes at the level of C5. The distal righ t vertebral artery is diminutive. The distal right vertebral artery does communicate with the basilar artery. [place] of [place]: Negative. There is no evidence of abnormality of the right middle cerebral artery or its vascular territory. Other vascular findings: None significant. Additional non-angiographic findings: There is heterogeneity of the thyroid gland. This can be further evaluated with ultrasound if clinica lly indicated. IMPRESSION: No acute abnormality identified. There is no evidence of acute abnormality of the brain parenchyma. T here is no significant acute vascular abnormality identified. There is a 50% stenosis at the origin of the left subclavian artery. The left vertebral artery is dominant. The right vertebral artery is discontinuous. The distal left v ertebral artery is diminutive and reconstitutes at the level of C5. Incidental note is made of heterogeneity of the thyroid gland. Report Dictated By: Alexey Becerra at 12/20/2017 1:13 PM Report E-Signed By: Alexey Becerra at 12/20/2017 1:47 PM WSN:[id number]
[2017-12-20 16:00] VITALS: BP 166/87
== END 2017-12-20 16:50 | disposition home or self-care (01) ==
LOC: ER 13:16
DX: R20.2 Paresthesia of skin (principal); I77.1 Stricture of artery
CPT/HCPCS: 70450; 70496; 70498; 71045; 81001; 84484; 85025; 85610; 85730; 93005; 99284; J7050; Q9967; 82040; 82247; 82310; 82374; 82435; 82565; 82947; 84075; 84132; 84155; 84295; 84450; 84460; 84520

== ENCOUNTER → 2017-12-20 | Outpatient (CLI) | payer MEDICARE ==
[2017-10-30 08:58] VITALS: BMI 22.4
== END ==
LOC: AMB 16:43
PROVIDERS: ATTEND Nurse Practitioner
DX: Z99.81 Dependence on supplemental oxygen (principal)
CPT/HCPCS: A0425; A0428

== ENCOUNTER → 2017-12-20 | Outpatient (CLI) | payer MEDICARE ==
[2017-10-30 08:58] VITALS: BMI 22.4
== END ==
LOC: AMB 12:14
PROVIDERS: ATTEND Nurse Practitioner
DX: R53.1 Weakness (principal); R29.810 Facial weakness
CPT/HCPCS: A0425; A0427

== ENCOUNTER → 2018-01-19 | Outpatient (CLI) | payer MEDICARE ==
[2017-10-30 08:58] VITALS: BMI 22.4
--- NOTE | 2018-01-19 15:18 | RADIOLOGY IMAGING REPORT ---
FACILITY: [facility] PATIENT NAME: Nanci Paul : 1950 MR: [id number] V: [id number] EXAM DATE: ORDERING PHYSICIAN: NURIS LEE TECHNOLOGIST: [facility] Patient: Nanci Paul : 1950 Visit/Account:[id number] Date of Sevice: 01/19/2018 C SPINE W/O CONTRAST History: Neck pain. Left upper extremity numbness COMPARISON STUDIES: None TECHNIQUE: Multi-planar, multi-sequence cervical spine MRI was performed without intravenous contras t administration. FINDINGS: Alignment: 3 mm of anterolisthesis at C3-C4. Straightening of the cervical spine. Vertebral marrow signal: Negative Cranio-cervical junction: Negative Visualized brain: Negative Paravertebral soft tissues: Bilateral thyroid nodules measuring up to 1 cm. Cervical cord: Small foci of high signal within the cervical cord at the C5-C6 level Disc Spaces: C2-C3: Moderate left spondylitic ridge with mild left neural foraminal stenosis. No stenosis of the c anal. C3-C4: 3 mm of anterolisthesis. Small posterior spondylitic ridge. No significant stenosis of the can al. C4-C5: Large posterior spondylitic ridge. Mild facet hypertrophy. Moderate-severe stenosis of the can al with small foci of high signal within the cervical cord. Severe right and moderate left neural for aminal stenosis. C5-C6: Large posterior spondylitic ridge. Moderate-severe stenosis of the canal. Severe bilateral mercedez ral foraminal stenosis, right greater than left. C6-C7: Small posterior spondylitic ridge. No significant stenosis of the canal. Mild bilateral neural foraminal stenosis. C7-T1: Negative Upper T spine: Negative Other findings: 7 mm Tornwaldt cyst. IMPRESSION: 1. From C4-C6 there is severe spondylosis with moderate-severe stenosis of the canal and bilateral ne ural foraminal stenosis. Foci of high signal within the cervical cord concerning for mild myelomalaci a. Report Dictated By: Eldon Castle MD at 01/19/2018 2:38 PM Report E-Signed By: Eldon Castle MD at 01/19/2018 3:14 PM WSN:[id number]
== END ==
LOC: MRI 01:06
PROVIDERS: ATTEND Psychiatry & Neurology Neurology
DX: M47.812 Spondylosis without myelopathy or radiculopathy, cervical region (principal); M48.01 Spinal stenosis, occipito-atlanto-axial region; M79.2 Neuralgia and neuritis, unspecified
CPT/HCPCS: 72141

== ENCOUNTER 2018-08-12 15:38 | Emergency (ER) | payer MEDICARE ==
[2017-10-30 08:58] VITALS: Wt 45.4 kg
[~2018-08-12 15:38] MED LIST changes: -AMLO-113 PO; +AMLO-127 PO; +BACL-1 PO; +FLU180SY11 IM; -GABA-503 PO; +GABA-533 PO
[2018-08-12] MEDS ORDERED: fentaNYL CITR 100 MCG/2 ML AMP IVP ONE (16:25)
--- NOTE | 2018-08-12 16:29 | ER Report ---
History and Physical Time Seen By MD: 16:25 Hx. of Stated Complaint: PT REPORTS LEFT HIP PAIN/NUMBNESS STARTED THIS MORNING. PT RECENTLY FRACTURED LEFT HIP AND HAS HAD STROKE WITH LEFT SIDED DEFICITS. PT REPORTS PAIN AND NUMBNESS IS NEW AND WORSE. HPI/ROS CHIEF COMPLAINT: Left hip lower back pain HISTORY OF PRESENT ILLNESS: 5-year-old female comes emergency Department today she has a long history of hip fracture 2 proximal femur and intertrochanteric eyes had surgery done twice did not participate in rehabilitation she's been having chronic pain of that hip and lower back last 2 weeks and been getting significantly worse last couple days even more so she takes gabapentin and ib uprofen for pain and discomfort no urinary bladder bowel incontinence and numbness of subtle paresthesias no additional complaints noted REVIEW OF SYSTEMS: Respiratory: No cough, no dyspnea. Cardiovascular: No chest pain, no palpitations. Gastrointestinal: No vomiting, no abdominal pain. Musculoskeletal: Back and hip pain Remainder of the 14 system rev: Yes Allergies: Coded Allergies: aspirin (Verified Adverse Reaction, Mild, NAUSEA/VOMITING, 08/12/18) Home Meds Active Scripts Metoprolol Succinate (METOPROLOL SUCCINATE) 50 Mg Tab.er.24h, 1 TAB PO QDAY, #90 TAB 1 Refill Prov:TODD TRACEY MD 06/22/18 Clopidogrel Bisulfate (PLAVIX) 75 Mg Tablet, 1 TAB PO QDAY, #30 TAB 5 Refills Prov:TODD TRACEY MD 06/01/18 Quetiapine Fumarate (SEROQUEL) 25 Mg Tablet, 25 MG PO HS, #30 TAB 4 Refills Prov:TODD TRACEY MD 05/19/18 Duloxetine Hcl (CYMBALTA) 60 Mg Capsule.dr, 60 MG PO QDAY, #30 CAP 5 Refills Prov:TODD TRACEY MD 02/08/18 Gabapentin (GABAPENTIN) 600 Mg Tablet, 600 MG PO TID, #90 CAP 4 Refills Prov:TODD TRACEY MD 02/08/18 Cyanocobalamin (Vitamin B-12) (B-12) 1,000 Mcg Tablet, 1 TAB PO QDAY for 30 Days, #90 TAB 3 Refills Prov:TODD TRACEY MD 11/30/17 Reported Medications Baclofen (BACLOFEN) 10 Mg Tablet, 10 MG PO TID, #30 TAB 02/08/18 Acetaminophen 500 Mg Tab (ACETAMINOPHEN EXTRA STRENGTH) 500 Mg Tablet, 500 MG PO BID PRN for pain, TAB 11/30/17 Cholecalciferol (Vitamin D3) (VITAMIN D3) 2,000 Unit Capsule, 2000 UNIT PO QDAY, CAPSULE 09/30/17 Discontinued Reported Medications Docusate Sodium (COLACE) 100 Mg Capsule, 100 MG PO BID PRN for constipation, CAPSULE 09/30/17 Reviewed Nurses Notes: Yes Old Medical Records Reviewed: Yes Hx Smoking: Yes (1 PACK DAILY, UNABLE TO VARIFY INFO) Smoking Status: Smoker: Status Unknown Hx Substance Use Disorder: No Hx Alcohol Use: No Constitutional Vital Sign - Last 24 Hours 08/12/18 15:56 Temp 99.8 Pulse 87 Resp 22 B/P (MAP) 143/97 Pulse Ox 61 O2 Delivery Nasal Cannula Physical Exam General Appearance: [The patient is alert, has no immediate need for airway protection and no current signs of toxicity.] [ ] Eyes: Pupils equal and round no injection. Respiratory: Chest is non tender, lungs are clear to auscultation. Cardiac: regular rate and rhythm [ ] Gastrointestinal: Abdomen is soft and non tender, no masses, bowel sounds normal. Musculoskeletal: Examination of the back and of the hip patient has no palpable tenderness about the lumbar spine and in the hip she does have pain with flexion and internal and abduction and abduction no numbness of subtle paresthesias otherwise unremarkable exam Neck is supple and non tender. Extremities have full range of motion and are non tender. Skin: No rashes or lesions. [ ] DIFFERENTIAL DIAGNOSIS: After history and physical exam differential diagnosis was considered for lumbar strain lumbar sprain fracture pathological fracture sciatica refracture of a already repaired hip Medical Decision Making ED Course/Re-evaluation ED Course ED course 5-year-old female comes emergency Department with exacerbation of her chronic low back and hip discomfort she has had multiple surgeries in the past of her left hip and she's had obvious degenerative disc disease of her lumbar spine no urinary bladder bowel incontinence and numbness of subtle paresthesias x-rays to confirm wedge compression fractures of her lumbar spine age- indeterminate the most likely they are not new this has been chronic in nature hip and her prosthesis all look within normal range I will refer her to orthopedics for surgical consultation from a neurosurgical perspective and probable outpatient MRI she's been noncompliant refusing to go to physical therapy subsequent to her surgeries we talked in great detail about the necessity of physical therapy any advantage of taking care of the problem after the surgical of event happens in the long-term prognosis and the benefit patient seems to understand as well this was discussed with family. Patient will be discharged today we'll give her couple days with pain medication with the understanding that that is not a solution that is unmasking agent to make sure she does follow up accordingly this was discussed in great detail with both patient and family Decision to Disposition Date: Aug 12, 2018 Decision to Disposition Time: 17:35 Depart Departure Latest Vital Signs Vital Signs Date Time Temp Pulse Resp B/P (MAP) Pulse Ox O2 Delivery O2 Flow Rate FiO2 08/12/18 15:56 99.8 87 22 143/97 61 Nasal Cannula Impression: Primary Impression: Degenerative disc disease at L5-S1 level Condition: Improved Disposition: HOME OR SELF-CARE Referrals: TODD TRACEY MD (PCP) ANASTASIA CAT MD 10 Days Patient Instructions: Degenerative Disc Disease (DC) THIERRY CLEMONS MD Aug 12, 2018 16:30
[2018-08-12 17:00] VITALS: BP 140/85
--- NOTE | 2018-08-12 17:22 | RADIOLOGY IMAGING REPORT ---
FACILITY: [facility] [place] PATIENT NAME: Nanci Paul : 1950 MR: [id number] V: [id number] EXAM DATE: ORDERING PHYSICIAN: THIERRY CLEMONS TECHNOLOGIST: Location[place] [facility] [place] Patient: Nanci Paul : 1950 Visit/Account:[id number] Date of Sevice: 08/12/2018 INDICATION: pain. Fall with history of prior hip fracture. DATE: 08/12/2018 5:08 PM. TECHNIQUE: HIP LEFT, FEMUR LEFT, L-SPINE 2 OR 3 VIEW COMPARISON: Hip radiographs October 29, 2017. FINDINGS: The pelvic ring appears intact. Sacrum is partially obscured by stool and bowel gas. The large ossi fic density superior to the left femoral head is well corticated and is residual from prior injury. The old mid shaft left femoral fracture has healed status post ORIF. The intertrochanteric fracture has also healed. There is no new fracture. Posterior fusion hardware spans L4-5, and there is an interbody spacer at that disc level. The hardw are appears intact. A compression deformity of the superior endplate of L2 is new since 2009. A mor e recent comparison is not available. IMPRESSION: 1. Compression deformity of the superior endplate of L2 is age indeterminate, possibly old, but new since the MRI of August 15, 2009. 2. The left femoral diaphyseal and intertrochanteric fractures have healed status post ORIF. No new fracture at the left femur. 3. No pelvic fracture identified. Sacrum is obscured by stool and bowel gas. Report Dictated By: Yunior Guevara MD at 08/12/2018 5:08 PM Report E-Signed By: Yunior Guevara MD at 08/12/2018 5:17 PM WSN:[id number]
--- NOTE | 2018-08-12 17:23 | RADIOLOGY IMAGING REPORT ---
FACILITY: [facility] [place] PATIENT NAME: Nanci Paul : 1950 MR: [id number] V: [id number] EXAM DATE: ORDERING PHYSICIAN: THIERRY CLEMONS TECHNOLOGIST: Location: [facility] Patient: Nanci Paul : 1950 Visit/Account:[id number] Date of Sevice: 08/12/2018 INDICATION: pain. Fall with history of prior hip fracture. DATE: 08/12/2018 5:08 PM. TECHNIQUE: HIP LEFT, FEMUR LEFT, L-SPINE 2 OR 3 VIEW COMPARISON: Hip radiographs October 29, 2017. FINDINGS: The pelvic ring appears intact. Sacrum is partially obscured by stool and bowel gas. The large ossi fic density superior to the left femoral head is well corticated and is residual from prior injury. The old mid shaft left femoral fracture has healed status post ORIF. The intertrochanteric fracture has also healed. There is no new fracture. Posterior fusion hardware spans L4-5, and there is an interbody spacer at that disc level. The hardw are appears intact. A compression deformity of the superior endplate of L2 is new since 2009. A mor e recent comparison is not available. IMPRESSION: 1. Compression deformity of the superior endplate of L2 is age indeterminate, possibly old, but new since the MRI of August 15, 2009. 2. The left femoral diaphyseal and intertrochanteric fractures have healed status post ORIF. No new fracture at the left femur. 3. No pelvic fracture identified. Sacrum is obscured by stool and bowel gas. Report Dictated By: Yunior Guevara MD at 08/12/2018 5:08 PM Report E-Signed By: Yunior Guevara MD at 08/12/2018 5:17 PM WSN:[id number]
--- NOTE | 2018-08-12 17:23 | RADIOLOGY IMAGING REPORT ---
FACILITY: [facility] [place] PATIENT NAME: Nanci Paul : 1950 MR: [id number] V: [id number] EXAM DATE: ORDERING PHYSICIAN: THIERRY CLEMONS TECHNOLOGIST: [facility] Patient: Nanci Paul : 1950 Visit/Account:[id number] Date of Sevice: 08/12/2018 INDICATION: pain. Fall with history of prior hip fracture. DATE: 08/12/2018 5:08 PM. TECHNIQUE: HIP LEFT, FEMUR LEFT, L-SPINE 2 OR 3 VIEW COMPARISON: Hip radiographs October 29, 2017. FINDINGS: The pelvic ring appears intact. Sacrum is partially obscured by stool and bowel gas. The large ossi fic density superior to the left femoral head is well corticated and is residual from prior injury. The old mid shaft left femoral fracture has healed status post ORIF. The intertrochanteric fracture has also healed. There is no new fracture. Posterior fusion hardware spans L4-5, and there is an interbody spacer at that disc level. The hardw are appears intact. A compression deformity of the superior endplate of L2 is new since 2009. A mor e recent comparison is not available. IMPRESSION: 1. Compression deformity of the superior endplate of L2 is age indeterminate, possibly old, but new since the MRI of August 15, 2009. 2. The left femoral diaphyseal and intertrochanteric fractures have healed status post ORIF. No new fracture at the left femur. 3. No pelvic fracture identified. Sacrum is obscured by stool and bowel gas. Report Dictated By: Yunior Guevara MD at 08/12/2018 5:08 PM Report E-Signed By: Yunior Guevara MD at 08/12/2018 5:17 PM WSN:[id number]
[2018-08-13] MEDS ORDERED: DULO60CA56 PO (09:36)
== END 2018-08-12 17:50 | disposition home or self-care (01) ==
LOC: ER 16:23
DX: M47.9 Spondylosis, unspecified (principal)
CPT/HCPCS: 72100; 73502; 73552; 96374; 99284; J3010

== ENCOUNTER 2018-08-13 13:43 | Observation (INO) | payer MEDICARE ==
[2017-10-30 08:58] VITALS: Wt 45.4 kg
--- NOTE | 2018-08-13 13:48 | ER Report ---
History and Physical Time Seen By MD: 13:46 HPI/ROS CHIEF COMPLAINT: Back pain, left leg pain, left arm numbness, weakness HISTORY OF PRESENT ILLNESS: Patient presents to the ED with multiple complaints. She is accompanied by her daughter. She states that she has been having chronic lumbar back pain and left leg radiculopathy for the past here since she had hip surgery. She states that she has been using a walker ever since. The daughter st ates that in the past 3 days this has been worse than usual. She has been taking hydrocodone and gabapentin with minimal relief. She was seen yesterday in the ED and told to follow-up with orthopedic surgery but she was unable to get in and was unable to get around her house well. The daughter is very concerned about her being at home and does not feel that she is safe at this point. Patient did have an episode of emesis today. She states that she has been having some increased urinary frequency but denies any dysuria or hematuria. She has not noted any abdominal pain. 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 She has also had some left arm numbness ever since but states that she feels like it is worse today. She denies any headache. She does have severe COPD and is currently on 2-3 L of oxygen nasal cannula. REVIEW OF SYSTEMS: Constitutional: No fever, no chills. Eyes: No discharge. ENT: No sore throat. Cardiovascular: No chest pain, no palpitations. Respiratory: No cough, no shortness of breath. Gastrointestinal: No abdominal pain, no vomiting. Genitourinary: See history of present illness. Musculoskeletal: See history of present illness. Skin: No rashes. Neurological: See history of present illness. No dizziness. Allergies: Coded Allergies: aspirin (Verified Adverse Reaction, Mild, NAUSEA/VOMITING, 08/12/18) Home Meds Active Scripts Duloxetine Hcl (CYMBALTA) 60 Mg Capsule.dr, 60 MG PO QDAY, #30 CAP 1 Refill Prov:TODD TRACEY MD 08/13/18 Metoprolol Succinate (METOPROLOL SUCCINATE) 50 Mg Tab.er.24h, 1 TAB PO QDAY, #90 TAB 1 Refill Prov:TODD TRACEY MD 06/22/18 Clopidogrel Bisulfate (PLAVIX) 75 Mg Tablet, 1 TAB PO QDAY, #30 TAB 5 Refills Prov:TODD TRACEY MD 06/01/18 Quetiapine Fumarate (SEROQUEL) 25 Mg Tablet, 25 MG PO HS, #30 TAB 4 Refills Prov:TODD TRACEY MD 05/19/18 Gabapentin (GABAPENTIN) 600 Mg Tablet, 600 MG PO TID, #90 CAP 4 Refills Prov:TODD TRACEY MD 02/08/18 Cyanocobalamin (Vitamin B-12) (B-12) 1,000 Mcg Tablet, 1 TAB PO QDAY for 30 Days, #90 TAB 3 Refills Prov:TODD TRACEY MD 11/30/17 Reported Medications Baclofen (BACLOFEN) 10 Mg Tablet, 10 MG PO TID, #30 TAB 02/08/18 Acetaminophen 500 Mg Tab (ACETAMINOPHEN EXTRA STRENGTH) 500 Mg Tablet, 500 MG PO BID PRN for pain, TAB 11/30/17 Cholecalciferol (Vitamin D3) (VITAMIN D3) 2,000 Unit Capsule, 2000 UNIT PO QDAY, CAPSULE 09/30/17 Discontinued Reported Medications Docusate Sodium (COLACE) 100 Mg Capsule, 100 MG PO BID PRN for constipation, CAPSULE 09/30/17 Reviewed Nurses Notes: Yes Old Medical Records Reviewed: Yes Hx Smoking: Yes (1 PACK DAILY, UNABLE TO VARIFY INFO) Smoking Status: Smoker: Status Unknown Hx Substance Use Disorder: No Hx Alcohol Use: No Constitutional Vital Sign - Last 24 Hours 08/13/18 08/13/18 08/13/18 08/13/18 13:52 14:00 14:30 15:00 Temp 98.1 Pulse 70 63 58 65 Resp 18 B/P (MAP) 160/103 183/123 (143) 175/88 (117) 129/91 (104) Pulse Ox 96 96 97 95 O2 Delivery Nasal Cannula 08/13/18 08/13/18 15:00 16:00 Pulse 65 68 B/P (MAP) 129/91 (104) 176/73 (107) Pulse Ox 95 97 Physical Exam General Appearance: The patient is alert, has no immediate need for airway protection and no signs of toxicity. Patient appears to be in some mild distress. Eyes: Pupils equal and round no pallor or injection. ENT, Mouth: Mucous membranes are moist. Respiratory: There are no retractions, lungs are clear to auscultation. Cardiovascular: Regular rate and rhythm. Gastrointestinal: Abdomen is soft and non tender, no masses, bowel sounds normal. Neurological: Cranial nerves II through XII intact. Skin: Warm and dry, no rashes. Musculoskeletal: There is left paravertebral lumbar tenderness with palpation. There is a positive left straight leg raise test. Extremities are nontender, nonswollen and have full range of motion. DIFFERENTIAL DIAGNOSIS: After history and physical exam differential diagnosis was considered for back pain including but not limited to muscular pain, herniated disc, spine fracture, intra-abdominal causes and urinary tract infection. Medical Decision Making Data Points Result Diagram: 08/13/18 1415 08/13/18 1415 Laboratory Hematology Test 08/13/18 14:15 Red Blood Count 4.15 M/uL (4.17-5.56) Mean Corpuscular Volume 84.0 fL (80.0-96.0) Mean Corpuscular Hemoglobin 27.0 pg (26.0-33.0) Mean Corpuscular Hemoglobin Concent 32.1 g/dL (32.0-36.0) Red Cell Distribution Width 16.1 % (11.5-14.5) Mean Platelet Volume 7.8 fL (7.2-11.1) Neutrophils (%) (Auto) 46.8 % (39.4-72.5) Lymphocytes (%) (Auto) 41.4 % (17.6-49.6) Monocytes (%) (Auto) 6.7 % (4.1-12.4) Eosinophils (%) (Auto) 4.1 % (0.4-6.7) Basophils (%) (Auto) 1.0 % (0.3-1.4) Nucleated RBC Relative Count (auto) 0.1 /100WBC Neutrophils # (Auto) 3.6 K/uL (2.0-7.4) Lymphocytes # (Auto) 3.2 K/uL (1.3-3.6) Monocytes # (Auto) 0.5 K/uL (0.3-1.0) Eosinophils # (Auto) 0.3 K/uL (0.0-0.5) Basophils # (Auto) 0.1 K/uL (0.0-0.1) Nucleated RBC Absolute Count (auto) 0.01 K/uL Urine Color Yellow Urine Clarity Clear Urine pH 6.0 pH (4.8-9.5) Urine Specific [place] 1.009 Urine Protein Negative mg/dL (NEGATIVE) Urine Glucose (UA) Negative mg/dL (NEGATIVE) Urine Ketones Negative mg/dL (NEGATIVE) Urine Blood Negative (NEGATIVE) Urine Nitrite Negative (NEGATIVE) Urine Bilirubin Negative (NEGATIVE) Urine Urobilinogen Negative mg/dL (0.2-1.9) Urine Leukocyte Esterase Negative (NEGATIVE) Urine RBC None /HPF (0-2/HPF) Urine WBC <1 /HPF (0-5/HPF) Urine Squamous Epithelial Cells None /LPF (NONE-FEW) Urine Bacteria Negative /HPF (NONE-FEW) Urine Mucus None /HPF (NONE-FEW) Sodium Level 140 mmol/L (137-145) Potassium Level 4.1 mmol/L (3.5-5.0) Chloride Level 100 mmol/L (98-107) Carbon Dioxide Level 33 mmol/L (22-31) Blood Urea Nitrogen 14 mg/dl (7-18) Creatinine 0.60 mg/dl (0.52-1.04) Glomerular Filtration Rate Calc > 60.0 Random Glucose 96 mg/dl (75-110) Calcium Level 9.1 mg/dl (8.4-10.2) Total Bilirubin 0.4 mg/dl (0.2-1.3) Aspartate Amino Transf (AST/SGOT) 26 U/L (0-35) Alanine Aminotransferase (ALT/SGPT) 26 U/L (0-56) Alkaline Phosphatase 46 U/L (0-126) Total Protein 7.2 g/dl (6.3-8.2) Albumin 3.7 g/dl (3.5-5.0) Chemistry Test 08/13/18 14:15 White Blood Count 7.8 k/uL (4.5-11.0) Red Blood Count 4.15 M/uL (4.17-5.56) Hemoglobin 11.2 g/dL (12.0-16.0) Hematocrit 34.9 % (34.0-47.0) Mean Corpuscular Volume 84.0 fL (80.0-96.0) Mean Corpuscular Hemoglobin 27.0 pg (26.0-33.0) Mean Corpuscular Hemoglobin Concent 32.1 g/dL (32.0-36.0) Red Cell Distribution Width 16.1 % (11.5-14.5) Platelet Count 348 K/uL (150-450) Mean Platelet Volume 7.8 fL (7.2-11.1) Neutrophils (%) (Auto) 46.8 % (39.4-72.5) Lymphocytes (%) (Auto) 41.4 % (17.6-49.6) Monocytes (%) (Auto) 6.7 % (4.1-12.4) Eosinophils (%) (Auto) 4.1 % (0.4-6.7) Basophils (%) (Auto) 1.0 % (0.3-1.4) Nucleated RBC Relative Count (auto) 0.1 /100WBC Neutrophils # (Auto) 3.6 K/uL (2.0-7.4) Lymphocytes # (Auto) 3.2 K/uL (1.3-3.6) Monocytes # (Auto) 0.5 K/uL (0.3-1.0) Eosinophils # (Auto) 0.3 K/uL (0.0-0.5) Basophils # (Auto) 0.1 K/uL (0.0-0.1) Nucleated RBC Absolute Count (auto) 0.01 K/uL Urine Color Yellow Urine Clarity Clear Urine pH 6.0 pH (4.8-9.5) Urine Specific [place] 1.009 Urine Protein Negative mg/dL (NEGATIVE) Urine Glucose (UA) Negative mg/dL (NEGATIVE) Urine Ketones Negative mg/dL (NEGATIVE) Urine Blood Negative (NEGATIVE) Urine Nitrite Negative (NEGATIVE) Urine Bilirubin Negative (NEGATIVE) Urine Urobilinogen Negative mg/dL (0.2-1.9) Urine Leukocyte Esterase Negative (NEGATIVE) Urine RBC None /HPF (0-2/HPF) Urine WBC <1 /HPF (0-5/HPF) Urine Squamous Epithelial Cells None /LPF (NONE-FEW) Urine Bacteria Negative /HPF (NONE-FEW) Urine Mucus None /HPF (NONE-FEW) Glomerular Filtration Rate Calc > 60.0 Calcium Level 9.1 mg/dl (8.4-10.2) Total Bilirubin 0.4 mg/dl (0.2-1.3) Aspartate Amino Transf (AST/SGOT) 26 U/L (0-35) Alanine Aminotransferase (ALT/SGPT) 26 U/L (0-56) Alkaline Phosphatase 46 U/L (0-126) Total Protein 7.2 g/dl (6.3-8.2) Albumin 3.7 g/dl (3.5-5.0) Urinalysis Test 08/13/18 14:15 Urine Color Yellow Urine Clarity Clear Urine pH 6.0 pH (4.8-9.5) Urine Specific [place] 1.009 Urine Protein Negative mg/dL (NEGATIVE) Urine Glucose (UA) Negative mg/dL (NEGATIVE) Urine Ketones Negative mg/dL (NEGATIVE) Urine Blood Negative (NEGATIVE) Urine Nitrite Negative (NEGATIVE) Urine Bilirubin Negative (NEGATIVE) Urine Urobilinogen Negative mg/dL (0.2-1.9) Urine Leukocyte Esterase Negative (NEGATIVE) Urine RBC None /HPF (0-2/HPF) Urine WBC <1 /HPF (0-5/HPF) Urine Squamous Epithelial Cells None /LPF (NONE-FEW) Urine Bacteria Negative /HPF (NONE-FEW) Urine Mucus None /HPF (NONE-FEW) ED Course/Re-evaluation ED Course Will obtain CT of the head as well as CTA of the head and neck. We will obtain lumbar back x-rays. And also will obtain labs. 08/13/2018 3:49:10 pm - patient was given 2 mg IV morphine but continues to have some pain. Will prescribe another 2 mg IV morphine. She states that most her pain now is in her left knee and hip area. Will obtain x-rays. Patient can use to have pain and was unable to ambulate due to pain. Her left knee and hip x-rays. Abdomen no acute fracture. She does have an L2 compression fracture that appears to be causing her pain. Discussed patient with Dr. Doug Johnston, hospitalist, who will admit patient t o his service. Decision to Disposition Date: Aug 13, 2018 Decision to Disposition Time: 17:26 Depart Departure Latest Vital Signs Vital Signs Date Time Temp Pulse Resp B/P (MAP) Pulse Ox O2 Delivery O2 Flow Rate FiO2 08/13/18 16:00 68 176/73 (107) 97 08/13/18 13:52 98.1 18 Nasal Cannula Impression: Primary Impression: Compression fracture of L2 Additional Impression: Chronic left hip pain Condition: Improved Disposition: Admitted from ER Referrals: TODD TRACEY MD (PCP) Consult Note: Dr. Mahendra Johnston, Hospitalist Problem Qualifiers Primary Impression: Compression fracture of L2 Encounter type: initial encounter Qualified Codes: S32.020A - Wedge compression fracture of second lumbar vertebra, initial encounter for closed fracture RUTH ESTRADA PA-C Aug 13, 2018 13:48
[2018-08-13] MEDS ORDERED: IOPAMIDOL 76% 100 ML INFUS BTL 100 ML ONE (14:29)
[2018-08-13] MEDS ORDERED: NS(*) 0.9% 50 ML BAG 50 ML ONE (14:29)
[2018-08-13 14:32] LABS: PLATELET COUNT, AUTOMATED 348 K/uL (150-450)
[2018-08-13] MEDS ORDERED: MORPHINE 2 MG/ML SYR IVP ONE ×2 (14:35→15:50)
[2018-08-13] MEDS ORDERED: ONDANSETRON 4 MG/2 ML VIAL IVP ONE (14:35)
[2018-08-13] MEDS ORDERED: NS(*) 0.9% 500 ML BAG 500 ML IV ONE (14:40)
--- NOTE | 2018-08-13 15:50 | RADIOLOGY IMAGING REPORT ---
FACILITY: [facility] - [place] PATIENT NAME: Nanci Paul : 1950 MR: [id number] V: [id number] EXAM DATE: ORDERING PHYSICIAN: RUTH ESTRADA TECHNOLOGIST: Location: [facility] Patient: Nanci Paul : 1950 Visit/Account:[id number] Date of Sevice: 08/13/2018 CT BRAIN NO CONTRAST, CT CTA NECK W/CONTRAST, CT CTA HEAD W & W/O HISTORY: h/o CVA, worsening left arm numbness, left leg pain TECHNIQUE: A noncontrast CT scan of the brain was performed. Overlapping thin sections were then o btained during a bolus of IV contrast from the aortic arch through the vertex. Image data was sent to an independent workstation where 3-D reconstruction was performed. 3 images we re created according to reconstruction protocol developed by the radiologist on the facility radiolog y staff. [employer] images are stored on PACS. One of the following dose optimization techniques was utilized in the performance of this exam: Autom ated exposure control; adjustment of the mA and/or kV according to the patient's size; or use of an i terative reconstruction technique. Specific details can be referenced in the facility's radiology C T exam operational policy. Measurements of the internal carotid arteries were performed according to NASCET criteria. . Contrast: 75 mL Isovue-370 COMPARISON STUDIES: December 20, 2017 FINDINGS: The precontrast CT scan of the brain demonstrates no evidence of acute intracranial hemorrhage. There is no evidence of extra-axial collection or hydrocephalus. There is no evidence of intracranial mass lesion. The lea-white junction is intact throughout. There are areas of low density within the per iventricular white matter. These are consistent with chronic ischemia. These are unchanged as romeo red to the previous study. Angiographic findings: Aortic arch and great vessels: There is calcification present at the origin of the great vessels. At the origin of the left subclavian artery, there is 50% stenosis present. This is not significantl y changed from the previous study. Right CCA / ICA: There is calcific plaque present at the carotid bifurcation. There is no evidence of significant stenosis present at the origin of the right internal carotid artery. The appearance of the right carotid bifurcation is unchanged as compared to the previous study. The remainder of th e right internal carotid artery is unremarkable. Left CCA / ICA: There is extensive calcific plaque present at the left carotid bifurcation. There is no evidence of significant stenosis at the origin of left internal carotid artery. The remainder of the left internal carotid artery is unremarkable. Vertebro-basilar: The left vertebral artery is dominant. The left vertebral artery is unremarkable in appearance. The right vertebral artery is diminutive. The right vertebral artery is discontinuo us. This is unchanged as compared to the previous study. The basilar artery is unremarkable in appe arance. [place]: Negative Other vascular findings: None significant. Additional non-angiographic findings: There is degenerative disease of the cervical spine noted. IMPRESSION: No evidence of significant change from the previous study. There is no evidence of significant vascu lar abnormality. There is no evidence of acute intracranial abnormality. Report Dictated By: Alexey Becerra at 08/13/2018 3:10 PM Report E-Signed By: Alexey Becerra at 08/13/2018 3:45 PM WSN:[email or web address]
--- NOTE | 2018-08-13 15:51 | RADIOLOGY IMAGING REPORT ---
FACILITY: [facility] - [place] PATIENT NAME: Nanci Paul : 1950 MR: [id number] V: [id number] EXAM DATE: ORDERING PHYSICIAN: RUTH ESTRADA TECHNOLOGIST: Location: [facility] [place] Patient: Nanci Paul : 1950 Visit/Account:[id number] Date of Sevice: 08/13/2018 CT BRAIN NO CONTRAST, CT CTA NECK W/CONTRAST, CT CTA HEAD W & W/O HISTORY: h/o CVA, worsening left arm numbness, left leg pain TECHNIQUE: A noncontrast CT scan of the brain was performed. Overlapping thin sections were then o btained during a bolus of IV contrast from the aortic arch through the vertex. Image data was sent to an independent workstation where 3-D reconstruction was performed. 3 images we re created according to reconstruction protocol developed by the radiologist on the facility radiolog y staff. [employer] images are stored on PACS. One of the following dose optimization techniques was utilized in the performance of this exam: Autom ated exposure control; adjustment of the mA and/or kV according to the patient's size; or use of an i terative reconstruction technique. Specific details can be referenced in the facility's radiology C T exam operational policy. Measurements of the internal carotid arteries were performed according to NASCET criteria. . Contrast: 75 mL Isovue-370 COMPARISON STUDIES: December 20, 2017 FINDINGS: The precontrast CT scan of the brain demonstrates no evidence of acute intracranial hemorrhage. There is no evidence of extra-axial collection or hydrocephalus. There is no evidence of intracranial mass lesion. The lea-white junction is intact throughout. There are areas of low density within the per iventricular white matter. These are consistent with chronic ischemia. These are unchanged as romeo red to the previous study. Angiographic findings: Aortic arch and great vessels: There is calcification present at the origin of the great vessels. At the origin of the left subclavian artery, there is 50% stenosis present. This is not significantl y changed from the previous study. Right CCA / ICA: There is calcific plaque present at the carotid bifurcation. There is no evidence of significant stenosis present at the origin of the right internal carotid artery. The appearance of the right carotid bifurcation is unchanged as compared to the previous study. The remainder of th e right internal carotid artery is unremarkable. Left CCA / ICA: There is extensive calcific plaque present at the left carotid bifurcation. There is no evidence of significant stenosis at the origin of left internal carotid artery. The remainder of the left internal carotid artery is unremarkable. Vertebro-basilar: The left vertebral artery is dominant. The left vertebral artery is unremarkable in appearance. The right vertebral artery is diminutive. The right vertebral artery is discontinuo us. This is unchanged as compared to the previous study. The basilar artery is unremarkable in appe arance. [place]: Negative Other vascular findings: None significant. Additional non-angiographic findings: There is degenerative disease of the cervical spine noted. IMPRESSION: No evidence of significant change from the previous study. There is no evidence of significant vascu lar abnormality. There is no evidence of acute intracranial abnormality. Report Dictated By: Alexey Becerra at 08/13/2018 3:10 PM Report E-Signed By: Alexey Becerra at 08/13/2018 3:45 PM WSN:[email or web address]
--- NOTE | 2018-08-13 15:52 | RADIOLOGY IMAGING REPORT ---
FACILITY: [facility] PATIENT NAME: Nanci Paul : 1950 MR: [id number] V: [id number] EXAM DATE: ORDERING PHYSICIAN: RUTH ESTRADA TECHNOLOGIST: Location: [facility] [place] Patient: Nanci Paul : 1950 Visit/Account:[id number] Date of Sevice: 08/13/2018 CT BRAIN NO CONTRAST, CT CTA NECK W/CONTRAST, CT CTA HEAD W & W/O HISTORY: h/o CVA, worsening left arm numbness, left leg pain TECHNIQUE: A noncontrast CT scan of the brain was performed. Overlapping thin sections were then o btained during a bolus of IV contrast from the aortic arch through the vertex. Image data was sent to an independent workstation where 3-D reconstruction was performed. 3 images we re created according to reconstruction protocol developed by the radiologist on the facility radiolog y staff. [employer] images are stored on PACS. One of the following dose optimization techniques was utilized in the performance of this exam: Autom ated exposure control; adjustment of the mA and/or kV according to the patient's size; or use of an i terative reconstruction technique. Specific details can be referenced in the facility's radiology C T exam operational policy. Measurements of the internal carotid arteries were performed according to NASCET criteria. . Contrast: 75 mL Isovue-370 COMPARISON STUDIES: December 20, 2017 FINDINGS: The precontrast CT scan of the brain demonstrates no evidence of acute intracranial hemorrhage. There is no evidence of extra-axial collection or hydrocephalus. There is no evidence of intracranial mass lesion. The lea-white junction is intact throughout. There are areas of low density within the per iventricular white matter. These are consistent with chronic ischemia. These are unchanged as romeo red to the previous study. Angiographic findings: Aortic arch and great vessels: There is calcification present at the origin of the great vessels. At the origin of the left subclavian artery, there is 50% stenosis present. This is not significantl y changed from the previous study. Right CCA / ICA: There is calcific plaque present at the carotid bifurcation. There is no evidence of significant stenosis present at the origin of the right internal carotid artery. The appearance of the right carotid bifurcation is unchanged as compared to the previous study. The remainder of th e right internal carotid artery is unremarkable. Left CCA / ICA: There is extensive calcific plaque present at the left carotid bifurcation. There is no evidence of significant stenosis at the origin of left internal carotid artery. The remainder of the left internal carotid artery is unremarkable. Vertebro-basilar: The left vertebral artery is dominant. The left vertebral artery is unremarkable in appearance. The right vertebral artery is diminutive. The right vertebral artery is discontinuo us. This is unchanged as compared to the previous study. The basilar artery is unremarkable in appe arance. [place]: Negative Other vascular findings: None significant. Additional non-angiographic findings: There is degenerative disease of the cervical spine noted. IMPRESSION: No evidence of significant change from the previous study. There is no evidence of significant vascu lar abnormality. There is no evidence of acute intracranial abnormality. Report Dictated By: Alexey Becerra at 08/13/2018 3:10 PM Report E-Signed By: Alexey Becerra at 08/13/2018 3:45 PM WSN:[email or web address]-RYAN
--- NOTE | 2018-08-13 15:57 | RADIOLOGY IMAGING REPORT ---
FACILITY: [facility] PATIENT NAME: Nanci Paul : 1950 MR: [id number] V: [id number] EXAM DATE: ORDERING PHYSICIAN: RUTH ESTRADA TECHNOLOGIST: Location: [facility] - [place] Patient: Nanci Paul : 1950 Visit/Account:[id number] Date of Sevice: 08/13/2018 Study: Lumbar spine series Indication: Low back pain Comparison study: None Findings: AP lateral and coned-down lateral views of the lumbar spine demonstrates the presence of a compression fracture of the L2 vertebral body. This is of unknown acuity. The compression fracture was not present on a previous study dated July 04, 2016.. There is a grade I retrolisthesis at the L5-S 1 level. There is no evidence of lytic or blastic lesions. IMPRESSION: L2 compression fracture. The acuity of this fracture is unknown. The fracture was not p resent on a previous study dated July 04, 2016. There is a grade I retrolisthesis at the L5-S1 level. Report Dictated By: Alexey Becerra at 08/13/2018 3:46 PM Report E-Signed By: Alexey Becerra at 08/13/2018 3:52 PM WSN:[email or web address]
[2018-08-13] MEDS ORDERED: ACETAMINOPHEN 325 MG TAB PO ONE (16:25)
--- NOTE | 2018-08-13 16:25 | RADIOLOGY IMAGING REPORT ---
[place] [facility] [place]: Nanci Paul : 1950 MR: [id number] V: [id number] EXAM DATE: ORDERING PHYSICIAN: RUTH ESTRADA TECHNOLOGIST: Location: [facility] [place] Patient: Nanci Paul : 1950 Visit/Account:[id number] Date of Sevice: 08/13/2018 KNEE 3 VIEW LEFT, HIP LEFT History: Left hip and left knee pain. Comparison study: October 13, 2018. Findings: Pelvis/left hip: There is diffuse osteopenia but no acute fracture is seen. There has bee n ORIF of a left intertrochanteric or subtrochanteric femoral neck fracture. Subtrochanteric callus formation is seen. There is avulsion of the greater tuberosity and lesser tuberosity. There is contrast in the bladder related to the recent contrast enhanced CT scan. There are postoper ative changes in the lumbar spine. There is osteoarthrosis of both hips. Left knee: Again noted is the patient's intramedullary femoral tasneem. There are findings of diffuse connie int space narrowing throughout the left knee but there is no fracture. IMPRESSION: 1. Diffuse osteopenia but no findings of an acute fracture. 2. Status post ORIF of a remote intertrochanteric/subtrochanteric left femoral neck fracture with in tramedullary rods. The fracture line is no longer seen and there is callus formation from the femora l fracture. 3. Osteoarthrosis of both hips. Report Dictated By: Zachariah Peterson MD at 08/13/2018 4:17 PM Report E-Signed By: Zachariah Peterson MD at 08/13/2018 4:20 PM WSN:[email or web address]
--- NOTE | 2018-08-13 16:25 | RADIOLOGY IMAGING REPORT ---
FACILITY: [facility] - [place] PATIENT NAME: Nanci Paul : 1950 MR: [id number] V: [id number] EXAM DATE: ORDERING PHYSICIAN: RUTH ESTRADA TECHNOLOGIST: [facility] Patient: Nanci Paul : 1950 Visit/Account:[id number] Date of Sevice: 08/13/2018 KNEE 3 VIEW LEFT, HIP LEFT History: Left hip and left knee pain. Comparison study: October 13, 2018. Findings: Pelvis/left hip: There is diffuse osteopenia but no acute fracture is seen. There has bee n ORIF of a left intertrochanteric or subtrochanteric femoral neck fracture. Subtrochanteric callus formation is seen. There is avulsion of the greater tuberosity and lesser tuberosity. There is contrast in the bladder related to the recent contrast enhanced CT scan. There are postoper ative changes in the lumbar spine. There is osteoarthrosis of both hips. Left knee: Again noted is the patient's intramedullary femoral tasneem. There are findings of diffuse connie int space narrowing throughout the left knee but there is no fracture. IMPRESSION: 1. Diffuse osteopenia but no findings of an acute fracture. 2. Status post ORIF of a remote intertrochanteric/subtrochanteric left femoral neck fracture with in tramedullary rods. The fracture line is no longer seen and there is callus formation from the femora l fracture. 3. Osteoarthrosis of both hips. Report Dictated By: Zachariah Peterson MD at 08/13/2018 4:17 PM Report E-Signed By: Zachariah Peterson MD at 08/13/2018 4:20 PM WSN:[email or web address]
[2018-08-13 17:34] VITALS: BP 189/85
[2018-08-13] MEDS ORDERED: NS(*) 0.9% 1000 ML BAG 1,000 ML IV PRN (17:52)
[2018-08-13] MEDS ORDERED: ACETAMINOPHEN 325 MG TAB PO PRN (17:55)
[2018-08-13] MEDS ORDERED: INFLUENZA VIRUS VAC 0.5ML SYR IM ONLY ONE (17:55)
--- NOTE | 2018-08-13 18:09 | History & Physical ---
History of Present Illness Chief Complaint Back and hip pain History of Present Illness 68yo female with PMHx significant for previous CVA with mild left-sided weakness and paresthesias, lumbar spine fusion, left hip fracture s/p gamma nail repair, left mid femur periprosthetic fracture s/p intramedullary tasneem placement, chronic pain. She reports problems with chronic pain involving her left hip/leg. She has had lesser pain with her lumbar region. She reports increasing pain which has limited her ability to ambulate and care for herself. She was evaluated in the [facility] ER and found to have L2 compression fracture. She denies any recent falls. She denies any new paresthesias/numbness. She feels she has grown weaker. She was recommended for admission. History Problems: (1) Thyroid nodule Status: Chronic (2) Anxiety Status: Chronic (3) Closed intertrochanteric fracture of left hip Status: Resolved (4) Mayr-prosthetic femoral shaft fracture Status: Resolved (5) Iron deficiency Status: Chronic (6) Benign hypertension Status: Chronic (7) B12 deficiency Status: Chronic (8) COPD (chronic obstructive pulmonary disease) Status: Chronic (9) CAD (coronary artery disease) Status: Chronic (10) Status post coronary artery stent placement Status: Chronic (11) Hemorrhagic cerebrovascular accident (CVA) Status: Chronic Home Meds Active Scripts Duloxetine Hcl (CYMBALTA) 60 Mg Capsule.dr, 60 MG PO QDAY, #30 CAP 1 Refill Prov:TODD TRACEY MD 08/13/18 Metoprolol Succinate (METOPROLOL SUCCINATE) 50 Mg Tab.er.24h, 1 TAB PO QDAY, #90 TAB 1 Refill Prov:TODD TRACEY MD 06/22/18 Clopidogrel Bisulfate (PLAVIX) 75 Mg Tablet, 1 TAB PO QDAY, #30 TAB 5 Refills Prov:TODD TRACEY MD 06/01/18 Quetiapine Fumarate (SEROQUEL) 25 Mg Tablet, 25 MG PO HS, #30 TAB 4 Refills Prov:TODD TRACEY MD 05/19/18 Gabapentin (GABAPENTIN) 600 Mg Tablet, 600 MG PO TID, #90 CAP 4 Refills Prov:TODD TRACEY MD 02/08/18 Cyanocobalamin (Vitamin B-12) (B-12) 1,000 Mcg Tablet, 1 TAB PO QDAY for 30 Days, #90 TAB 3 Refills Prov:TODD TRACEY MD 11/30/17 Reported Medications Baclofen (BACLOFEN) 10 Mg Tablet, 10 MG PO TID, #30 TAB 02/08/18 Acetaminophen 500 Mg Tab (ACETAMINOPHEN EXTRA STRENGTH) 500 Mg Tablet, 500 MG PO BID PRN for pain, TAB 11/30/17 Discontinued Reported Medications Cholecalciferol (Vitamin D3) (VITAMIN D3) 2,000 Unit Capsule, 2000 UNIT PO QDAY, CAPSULE 09/30/17 Docusate Sodium (COLACE) 100 Mg Capsule, 100 MG PO BID PRN for constipation, CAPSULE 09/30/17 Allergies: Coded Allergies: aspirin (Verified Adverse Reaction, Mild, NAUSEA/VOMITING, 08/12/18) Patient History: FH: cancer FH: diabetes mellitus BROTHER Hx Smoking: Yes (2 cigs a day) Smoking Status: Smoker: Status Unknown Caffeine/Cups Per Day: OCC Hx Alcohol Use: No Hx Substance Use Disorder: No Social Drug Use: Never Review of Systems Constitutional: No Fever, No Chills Neurological: Weakness Cardiovascular: No Chest Pain, No Palpitations Respiratory: No Shortness of Breath Gastrointestinal: No Diarrhea, No Hematemesis, No Hematochezia, No Abdominal Pain Genitourinary: Other (hesitancy) Musculoskeletal: Pain, Impaired Mobility Exam Vital Signs Vital Signs Date Time Temp Pulse Resp B/P (MAP) Pulse Ox O2 Delivery O2 Flow Rate FiO2 08/13/18 17:34 98.2 68 16 189/85 (119) 93 Nasal Cannula 2.0 General Appearance: Alert, Awake Neuro: Other (She is able to move all four extremities, but does have mild weakness (4+/5) in essentially all muscle groups on left) Eyes: PERRLA, Other (sclera anicteric) ENT: Other (face symmetric) Neck: No Masses Cardiovascular: Regular Rate and Rhythm Respiratory: Clear to Auscultation Chest: No Tenderness GI: Abd Soft and Non-Tender : No CVA Tenderness Lymph: No Adenopathy Musculoskeletal: Other (no trigger point pain over lumbar region) Extremities: Warm, Perfused, Other (left lower extremity is significantly shorter than right by several inches) Integumentary: Generalized Fragile Skin Psych: Alert & Oriented X3 Medical Decision Making Data Points Result Diagram: 08/13/18 1415 08/13/18 1415 Item Value Date Time Albumin 3.7 g/dl 08/13/18 1415 Total Protein 7.2 g/dl 08/13/18 1415 Alkaline Phosphatase 46 U/L 08/13/18 1415 Alanine Aminotransferase (ALT/SGPT) 26 U/L 08/13/18 1415 Aspartate Amino Transf (AST/SGOT) 26 U/L 08/13/18 1415 Total Bilirubin 0.4 mg/dl 08/13/18 1415 Calcium Level 9.1 mg/dl 08/13/18 1415 Urine Mucus None /HPF 08/13/18 1415 Urine Bacteria Negative /HPF 08/13/18 1415 Urine Squamous Epithelial Cells None /LPF 08/13/18 1415 Urine WBC <1 /HPF 08/13/18 1415 Urine RBC None /HPF 08/13/18 1415 Urine Leukocyte Esterase Negative 08/13/18 1415 Urine Urobilinogen Negative mg/dL 08/13/18 1415 Urine Bilirubin Negative 08/13/18 1415 Urine Nitrite Negative 08/13/18 1415 Urine Blood Negative 08/13/18 1415 Urine Ketones Negative mg/dL 08/13/18 1415 Urine Glucose (UA) Negative mg/dL 08/13/18 1415 Urine Protein Negative mg/dL 08/13/18 1415 Urine Specific [place] 1.009 08/13/18 1415 Urine pH 6.0 pH 08/13/18 1415 Urine Clarity Clear 08/13/18 1415 Urine Color Yellow 08/13/18 1415 EKG / Imaging Imaging PATIENT NAME: Nanci Paul : 1950 MR: [id number] V: [id number] EXAM DATE: ORDERING PHYSICIAN: RUTH ESTRADA TECHNOLOGIST: Location: [facility] Patient: Nanci Paul : 1950 Visit/Account:[id number] Date of Sevice: 08/13/2018 Study: Lumbar spine series Indication: Low back pain Comparison study: None Findings: AP lateral and coned-down lateral views of the lumbar spine demonstrates the presence of a compression fracture of the L2 vertebral body. This is of unknown acuity. The compression fracture was not present on a previous study dated July 04, 2016.. There is a grade I retrolisthesis at the L5- S1 level. There is no evidence of lytic or blastic lesions. IMPRESSION: L2 compression fracture. The acuity of this fracture is unknown. The fracture was not present on a previous study dated July 04, 2016. There is a grade I retrolisthesis at the L5-S1 level. Report Dictated By: Alexey Becerra at 08/13/2018 3:46 PM Report E-Signed By: Alexey Becerra at 08/13/2018 3:52 PM WSN:[id number] PATIENT NAME: Nanci Paul : 1950 MR: [id number] V: [id number] EXAM DATE: [id number] ORDERING PHYSICIAN: RUTH ESTRADA TECHNOLOGIST: Location: [facility] Patient: Nanci Paul : 1950 Visit/Account:[id number] Date of Sevice: 08/13/2018 CT BRAIN NO CONTRAST, CT CTA NECK W/CONTRAST, CT CTA HEAD W & W/O HISTORY: h/o CVA, worsening left arm numbness, left leg pain TECHNIQUE: A noncontrast CT scan of the brain was performed. Overlapping thin sections were then obtained during a bolus of IV contrast from the aortic arch through the vertex. Image data was sent to an independent workstation where 3-D reconstruction was performed. 3 images were created according to reconstruction protocol developed by the radiologist on the facility radiology staff. [employer] images are stored on PACS. One of the following dose optimization techniques was utilized in the performance of this exam: Automated exposure control; adjustment of the mA and/or kV according to the patient's size; or use of an iterative reconstruction technique. Specific details can be referenced in the facility's radiology CT exam operational policy. Measurements of the internal carotid arteries were performed according to NASCET criteria. . Contrast: 75 mL [id number] COMPARISON STUDIES: December 20, 2017 FINDINGS: The precontrast CT scan of the brain demonstrates no evidence of acute intracranial hemorrhage. There is no evidence of extra-axial collection or hydrocephalus. There is no evidence of intracranial mass lesion. The lea-white junction is intact throughout. There are areas of low density within the periventricular white matter. These are consistent with chronic ischemia. These are unchanged as compared to the previous study. Angiographic findings: Aortic arch and great vessels: There is calcification present at the origin of the great vessels. At the origin of the left subclavian artery, there is 50% stenosis present. This is not significantly changed from the previous study. Right CCA / ICA: There is calcific plaque present at the carotid bifurcation. There is no evidence of significant stenosis present at the origin of the right internal carotid artery. The appearance of the right carotid bifurcation is unchanged as compared to the previous study. The remainder of the right internal carotid artery is unremarkable. Left CCA / ICA: There is extensive calcific plaque present at the left carotid bifurcation. There is no evidence of significant stenosis at the origin of left internal carotid artery. The remainder of the left internal carotid artery is unremarkable. Vertebro-basilar: The left vertebral artery is dominant. The left vertebral artery is unremarkable in appearance. The right vertebral artery is diminutive. The right vertebral artery is discontinuous. This is unchanged as compared to the previous study. The basilar artery is unremarkable in appearance. [place] of [place]: Negative Other vascular findings: None significant. Additional non-angiographic findings: There is degenerative disease of the cervical spine noted. IMPRESSION: No evidence of significant change from the previous study. There is no evidence of significant vascular abnormality. There is no evidence of acute intracranial abnormality. Report Dictated By: Alexey Becerra at 08/13/2018 3:10 PM Report E-Signed By: Alexey Becerra at 08/13/2018 3:45 PM WSN:[id number] PATIENT NAME: Nanci Paul : 1950 MR: [id number] V: [id number] EXAM DATE: ORDERING PHYSICIAN: RUTH ESTRADA TECHNOLOGIST: Location: [facility] Patient: Nanci Paul : 1950 Visit/Account:[id number] Date of Sevice: 08/13/2018 KNEE 3 VIEW LEFT, HIP LEFT History: Left hip and left knee pain. Comparison study: October 13, 2018. Findings: Pelvis/left hip: There is diffuse osteopenia but no acute fracture is seen. There has been ORIF of a left intertrochanteric or subtrochanteric femoral neck fracture. Subtrochanteric callus formation is seen. There is avu lsion of the greater tuberosity and lesser tuberosity. There is contrast in the bladder related to the recent contrast enhanced CT scan. There are postoperative changes in the lumbar spine. There is osteoarthrosis of both hips. Left knee: Again noted is the patient's intramedullary femoral tasneem. There are findings of diffuse joint space narrowing throughout the left knee but there is no fracture. IMPRESSION: 1. Diffuse osteopenia but no findings of an acute fracture. 2. Status post ORIF of a remote intertrochanteric/subtrochanteric left femoral neck fracture with intramedullary rods. The fracture line is no longer seen and there is callus formation from the femoral fracture. 3. Osteoarthrosis of both hips. Report Dictated By: Zachariah Peterson MD at 08/13/2018 4:17 PM Report E-Signed By: Zachariah Peterson MD at 08/13/2018 4:20 PM WSN:[id number] PATIENT NAME: Nanci Paul : 1950 MR: [id number] V: [id number] EXAM DATE: [id number] ORDERING PHYSICIAN: RUTH ESTRADA TECHNOLOGIST: Location: [facility] Patient: Nanci Paul : 1950 Visit/Account:[id number] Date of Sevice: 08/13/2018 KNEE 3 VIEW LEFT, HIP LEFT History: Left hip and left knee pain. Comparison study: October 13, 2018. Findings: Pelvis/left hip: There is diffuse osteopenia but no acute fracture is seen. There has been ORIF of a left intertrochanteric or subtrochanteric femoral neck fracture. Subtrochanteric callus formation is seen. There is avulsion of the greater tuberosity and lesser tuberosity. There is contrast in the bladder related to the recent contrast enhanced CT scan. There are postoperative changes in the lumbar spine. There is osteoarthrosis of both hips. Left knee: Again noted is the patient's intramedullary femoral tasneem. There are findings of diffuse joint space narrowing throughout the left knee but there is no fracture. IMPRESSION: 1. Diffuse osteopenia but no findings of an acute fracture. 2. Status post ORIF of a remote intertrochanteric/subtrochanteric left femoral neck fracture with intramedullary rods. The fracture line is no longer seen and there is callus formation from the femoral fracture. 3. Osteoarthrosis of both hips. Report Dictated By: Zachariah Peterson MD at 08/13/2018 4:17 PM Report E-Signed By: Zachariah Peterson MD at 08/13/2018 4:20 PM WSN:[id number] Assessment and Plan Problems: (1) Back pain Status: Acute Assessment & Plan: Most likely due to a fairly recent L2 compression fracture. This is probably contributing to her pain and immobility, but does not appear to be the dominant factor. Will try to get some pain control and have her work with PT/OT on mobility. (2) Left hip pain Status: Chronic Assessment & Plan: This is most likely as a result of her previous hip/femur fractures and repair. She has rather dramatic shortening of her left lower extremity as well. Unfortunately, it sounds like her pain has become progressively worse despite the gabapentin and duloxetine. Will see if PT/OT is helpful. She may need to see orthopedics as well. Doubtful there is much that might be able to done with her left hip/femur. (3) Anxiety Status: Chronic Assessment & Plan: Will continue her same regimen with Cymbalta and Seroquel. (4) Benign hypertension Status: Chronic Assessment & Plan: Will continue her metoprolol. Monitor BPs. (5) CAD (coronary artery disease) Status: Chronic Assessment & Plan: She appears to be asymptomatic from this standpoint. Will continue her metoprolol and Plavix. (6) Hemorrhagic cerebrovascular accident (CVA) Status: Chronic Assessment & Plan: She has had residual mild left hemiparesis and left paresthesias. CT scan is unchanged. It appears she has tolerated the antiplatelet therapy for her CAD s/p stent. Copies to: TODD TRACEY MD ; Venous Thromboembolism Antithrombotics Is Pt On Any Antithrombotics?: Yes Exam Sepsis Risk: No Definite Risk SIRIA GARCIA MD Aug 13, 2018 18:09
[2018-08-13] MEDS: BACLOFEN 10 MG TAB PO PRN (20:16)
[2018-08-13] MEDS: APAP/HYDROCODONE 325/5 TAB PO PRN (20:17)
[2018-08-13] MEDS: QUEtiapine FUM 25 MG TAB PO SCH (20:18)
[2018-08-13 20:25] VITALS: BP 183/89
[2018-08-13] MEDS ORDERED: GABAPENTIN 300 MG CAP PO SCH (21:00)
[2018-08-13 22:58] VITALS: BP 114/66
[2018-08-14] MEDS: APAP/HYDROCODONE 325/5 TAB PO PRN ×3 (06:35→21:54)
[2018-08-14 07:02] VITALS: BP 162/82
--- NOTE | 2018-08-14 10:05 | NUR ---
Physical Therapy Impression PT eval complete. PT instruction for log roll technique, pt completed with SBA. CGA for STS transfers with RW. Pt with signifcant leg length discrepancy, with L) leg shorter, reports that she will only wear a shoe on the L) side at home, but does not have a shoe here. Ambulation x10' total, pt reports sig. increase in L) hip and leg pain with ambulation and is unable to ambulate further. Pain with palpation of the L) lateral hip, hip abductors. Pt also reports abnormal sensation of the L) arm and leg. Pt would likely benefit from OP PT but reports that she is unable to get there d/t needing to use walker and carry O2 with [employer] bus. At a [facility] PT, but it is unclear if it will be safe for her to d/c home alone. Physical Therapy Goals 1: pt to complete bed mobility with SBA 2: Pt to complete transfers with SBA and RW 3: Pt to ambulate 80' with SBA and RW Patient's Goals
[2018-08-14] MEDS: DULoxetine HCL 30 MG CAPCR PO SCH (11:28)
[2018-08-14] MEDS: METOPROLOL SUCC XL 50 MG TABCR 50 MG TAB.ER.24H PO SCH (11:28)
[2018-08-14] MEDS: ENOXAPARIN 40 MG/0.4ML SYR SC SCH (11:28)
[2018-08-14] MEDS: BACLOFEN 10 MG TAB PO PRN ×3 (11:29→21:54)
[2018-08-14] MEDS: CLOPIDOGREL BISULFATE 75MG TAB PO SCH (11:29)
[2018-08-14] MEDS: LIDOCAINE 5% PATCH TP SCH (11:29)
[2018-08-14 11:42] VITALS: BP 171/69
[2018-08-14 16:00] VITALS: BP 178/94
--- NOTE | 2018-08-14 16:47 | Hospitalist Progress Note ---
Subjective Progress Notes Subjective ERIC overnight, still having significant pain in hip but none or very minimal in back. Patient Complains of: Musculoskeletal: Pain Physical Exam Vital Signs Date Time Temp Pulse Resp B/P (MAP) Pulse Ox O2 Delivery O2 Flow Rate FiO2 08/14/18 16:00 98.2 75 20 178/94 (122) 98 Oxy Mask 4.0 Intake and Output 08/14/18 07:01 Intake Total 740 ml Output Total 12 ml Balance 728 ml Intake Oral 240 ml IV Total 500 ml Output Urine Total 12 ml # Voids 1 General Appearance: Alert, Awake, No Acute Distress, Afebrile Neuro: No Gross deficits Cardiovascular: Normal Rhythm & Peripheral Pulses Respiratory: No Respiratory Distress GI: Soft and Non-Tender Extremities: Warm, Pulses, Perfused; No Edema Result Diagram: 08/13/18 1415 08/13/18 1415 Assessment and Plan Problems: (1) Back pain Status: Acute Assessment & Plan: She does have a L2 compression fracture. This is probably contributing to her pain and immobility, but does not appear to be the dominant factor. Will try to get some pain control and have her work with PT/OT on mobility. (2) Left hip pain Status: Chronic Assessment & Plan: This is most likely as a result of her previous hip/femur fractures and repair. She has rather dramatic shortening of her left lower extremity as well. Unfortunately, it sounds like her pain has become progressively worse despite the gabapentin and duloxetine. Will see if PT/OT is helpful. She may need to see orthopedics as well. Trial of Lyrica and holding gabapentin. (3) Anxiety Status: Chronic Assessment & Plan: Will continue her same regimen with Cymbalta and Seroquel. (4) Benign hypertension Status: Chronic Assessment & Plan: Will continue her metoprolol. Monitor BPs. (5) CAD (coronary artery disease) Status: Chronic Assessment & Plan: She appears to be asymptomatic from this standpoint. Will continue her metoprolol and Plavix. (6) Hemorrhagic cerebrovascular accident (CVA) Status: Chronic Assessment & Plan: She has had residual mild left hemiparesis and left paresthesias. CT scan is unchanged. It appears she has tolerated the antipl atelet therapy for her CAD s/p stent. Exam Sepsis Risk: No Definite Risk PRICE MEREDITH CLEMENS DO Aug 14, 2018 16:47
[2018-08-14 19:10] VITALS: BP 149/73
[2018-08-14] MEDS: PREGABALIN 75 MG CAPSULE PO SCH (20:47)
[2018-08-14] MEDS: QUEtiapine FUM 25 MG TAB PO SCH (20:47)
[2018-08-14] MEDS: PATCH REMOVAL 1 EA TP SCH (21:00)
[2018-08-14 23:06] VITALS: BP 156/75
[2018-08-15] VITALS (7 sets, daily range): BP systolic 93–190; BP diastolic 57–106
[2018-08-15] MEDS: LIDOCAINE 5% PATCH TP SCH (08:28)
[2018-08-15] MEDS: DULoxetine HCL 30 MG CAPCR PO SCH (08:28)
[2018-08-15] MEDS: PREGABALIN 75 MG CAPSULE PO SCH (08:28)
[2018-08-15] MEDS: METOPROLOL SUCC XL 50 MG TABCR 50 MG TAB.ER.24H PO SCH (08:28)
[2018-08-15] MEDS: APAP/HYDROCODONE 325/5 TAB PO PRN ×3 (08:29→20:29)
[2018-08-15] MEDS: CLOPIDOGREL BISULFATE 75MG TAB PO SCH (08:29)
[2018-08-15] MEDS: ENOXAPARIN 40 MG/0.4ML SYR SC SCH (08:29)
[2018-08-15] MEDS: ALBUTEROL/IPRATROPIUM 3 ML NEB NEB SCH ×2 (12:26→16:41)
--- NOTE | 2018-08-15 12:56 | RADIOLOGY IMAGING REPORT ---
FACILITY: [facility] PATIENT NAME: Nanci Paul : 1950 MR: [id number] V: [id number] EXAM DATE: ORDERING PHYSICIAN: PAULA GARCIA TECHNOLOGIST: Location: [facility] - [place], [place] Patient: Nanci Paul : 1950 Visit/Account:[id number] Date of Sevice: 08/15/2018 Portable chest, one view. HISTORY: Shortness of breath. COMPARISON: 12/20/2017. The heart size is normal. The thoracic aorta is elongated and calcified. Central pulmonary arteries a re mildly enlarged, unchanged. The lungs are mildly voluminous. Interstitial markings are mildly thic kened bilaterally, unchanged. Slight elevation of the right hemidiaphragm is unchanged. The pleural s urfaces are otherwise unremarkable. Metal hardware is present in the lumbar spine. The bones are oste openic. IMPRESSION: Mild chronic elevation of the right hemidiaphragm, unchanged. Aortic atherosclerosis. Otherwise no evidence of acute cardiopulmonary disease. Report Dictated By: Cory Cheatham MD at 08/15/2018 12:49 PM Report E-Signed By: Cory Cheatham MD at 08/15/2018 12:51 PM WSN:[id number]
[2018-08-15] MEDS ORDERED: BISACODYL 10 MG SUPP PR PRN (13:50)
[2018-08-15] MEDS: GABAPENTIN 300 MG CAP PO SCH ×2 (14:35→20:29)
--- NOTE | 2018-08-15 15:26 | Hospitalist Progress Note ---
Subjective Progress Notes Subjective The patient continues to have L buttock pain which radiates around the lateral thigh to her knee with any movement. She gets numbness and tingling with this as well. When she is lying in bed, she is nearly pain free. She has a history of lumbar spine issues and has had a procedure performed at [facility] in 2009. She did well until recently when her pain recurred. She saw Dr. Hughes at [facility] She reports that he felt she was not a good surgical candidate but can't remember what else he told her. Those records have been requested. The patient also recently had a CVA with resultant L sided weakness and paresthesias. She saw Dr. Rojo, neurologist, in [place]. The patient states she was having pain in her neck that went down her arm. She does not recall what Dr. Rojo told her. Those records have been requested. The patient also states she has been seeing Dr. Ca for work up of her thyroid. She has had multiple blood tests and a thyroid uptake scan done at [facility]. She does not know the results of the testing or what problem she was having. Those records have been requested. Physical Exam Vital Signs Date Time Temp Pulse Resp B/P (MAP) Pulse Ox O2 Delivery O2 Flow Rate FiO2 08/15/18 12:56 92 Nasal Cannula 2.0 08/15/18 12:56 77 18 08/15/18 07:13 140/106 (117) 08/15/18 06:58 98.8 Intake and Output 08/15/18 07:01 Intake Total 480 ml Balance 480 ml Intake Oral 480 ml # Voids 3 General Appearance: Alert, Awake, Other (The patient appears pain free at rest but winces in pain if she has to move at all.) Cardiovascular: Regular Rate and Rhythm Respiratory: Clear to Auscultation GI: Soft and Non-Tender Extremities: Warm, Perfused Psych: Appropriate Mood & Affect Result Diagram: 08/13/18 1415 08/13/18 1415 Assessment and Plan Problems: (1) Back pain Status: Acute Assessment & Plan: She does have a L2 compression fracture but the age is unk nown. This may be contributing to her pain and immobility, but does not appear to be the dominant factor. Will try to get some pain control and have her work with PT/OT on mobility. Records have been requested from several providers to help with her evaluation. (2) Left hip pain Status: Chronic Assessment & Plan: This is most likely as a result of her previous hip/femur fractures and repair. She has rather dramatic shortening of her left lower extremity as well. Unfortunately, it sounds like her pain has become progressively worse despite the gabapentin and duloxetine. Will see if PT/OT is helpful. She may need to see orthopedics as well. (3) Anxiety Status: Chronic Assessment & Plan: Will continue her same regimen with Cymbalta and Seroquel. (4) Benign hypertension Status: Chronic Assessment & Plan: Will continue her metoprolol. Monitor BPs. (5) CAD (coronary artery disease) Status: Chronic Assessment & Plan: She appears to be asymptomatic from this standpoint. Will continue her metoprolol and Plavix. (6) Hemorrhagic cerebrovascular accident (CVA) Status: Chronic Assessment & Plan: She has had residual mild left hemiparesis and left paresthesias. CT scan is unchanged. It appears she has tolerated the antiplatelet therapy for her CAD s/p stent. Time Spent on Plan of Care: < 30 min Exam Sepsis Risk: No Definite Risk PAULA GARCIA MD Aug 15, 2018 15:26
[2018-08-15] MEDS: MAGNESIUM HYDROXIDE* 30ML UDCP PO PRN (16:15)
[2018-08-15] MEDS: DOCUSATE SODIUM 100 MG CAP PO SCH (20:29)
[2018-08-15] MEDS: QUEtiapine FUM 25 MG TAB PO SCH (20:29)
[2018-08-15] MEDS: BACLOFEN 10 MG TAB PO PRN (20:29)
[2018-08-15] MEDS: PATCH REMOVAL 1 EA TP SCH (21:00)
[2018-08-16 03:21] VITALS: BP 100/59
[2018-08-16] MEDS: ALBUTEROL/IPRATROPIUM 3 ML NEB NEB SCH ×3 (05:21→16:59)
[2018-08-16 06:47] VITALS: BP 125/69
[2018-08-16] MEDS: LIDOCAINE 5% PATCH TP SCH (08:48)
[2018-08-16] MEDS: POLYETHYLENE GLYCOL 17 GM PKT PO SCH (08:48)
[2018-08-16] MEDS: DULoxetine HCL 30 MG CAPCR PO SCH (08:48)
[2018-08-16] MEDS: APAP/HYDROCODONE 325/5 TAB PO PRN ×3 (08:49→20:53)
[2018-08-16] MEDS: DOCUSATE SODIUM 100 MG CAP PO SCH ×2 (08:49→20:54)
[2018-08-16] MEDS: GABAPENTIN 300 MG CAP PO SCH ×3 (08:49→20:54)
[2018-08-16] MEDS: ENOXAPARIN 40 MG/0.4ML SYR SC SCH (08:50)
[2018-08-16] MEDS: METOPROLOL SUCC XL 50 MG TABCR 50 MG TAB.ER.24H PO SCH (08:50)
[2018-08-16] MEDS: CLOPIDOGREL BISULFATE 75MG TAB PO SCH (08:50)
--- NOTE | 2018-08-16 10:08 | Hospitalist Progress Note ---
Subjective Progress Notes Subjective She was admitted with compression fracture. She reports difficulty with ambulation. I requested her family to bring her orthotic shoe for therapy today. Patient Complains of: Cardiovascular: No: Chest Pain Respiratory: No: Shortness of Breath Physical Exam Vital Signs Date Time Temp Pulse Resp B/P (MAP) Pulse Ox O2 Delivery O2 Flow Rate FiO2 08/16/18 09:02 90 Nasal Cannula 2.0 08/16/18 06:47 97.9 74 18 125/69 (87) Intake and Output 08/16/18 01:01 Intake Total 582 ml Balance 582 ml Intake Oral 582 ml # Voids 7 General Appearance: Alert, Awake, No Acute Distress, Afebrile Neuro: No Gross deficits Cardiovascular: Regular Rate and Rhythm Respiratory: No Respiratory Distress, Clear to Auscultation Psych: Alert & Oriented X3, Appropriate Mood & Affect Result Diagram: 08/13/18 1415 08/13/18 1415 Assessment and Plan Problems: (1) Back pain Status: Acute Assessment & Plan: She does have a L2 compression fracture but the age is unknown. This may be contributing to her pain and immobility, but does not appear to be the dominant factor. Will try to get some pain control and have her work with PT/OT on mobility. Records have been requested from several providers to help with her evaluation. (2) Left hip pain Status: Chronic Assessment & Plan: This is most likely as a result of her previous hip/femur fractures and repair. She has rather dramatic shortening of her left lower extremity as well. Unfortunately, it sounds like her pain has become progressively worse despite the gabapentin and duloxetine. Will see if PT/OT is helpful. She may need to see orthopedics as well. (3) Anxiety Status: Chronic Assessment & Plan: Will continue her same regimen with Cymbalta and Seroquel. (4) Benign hypertension Status: Chronic Assessment & Plan: Will continue her metoprolol. Monitor BPs. (5) CAD (coronary artery disease) Status: Chronic Assessment & Plan: She appears to be asymptomatic from this standpoint. Will continue her metoprolol and Plavix. (6) Hemorrhagic cerebrovascular accident (CVA) Status: Chronic Assessment & Plan: She has had residual mild left hemiparesis and left paresthesias. CT scan is unchanged. It appears she has tolerated the antiplatelet therapy for her CAD s/p stent. Exam Sepsis Risk: No Definite Risk CHAMP BOYER Aug 16, 2018 10:08
--- NOTE | 2018-08-16 10:43 | NUR ---
Physical Therapy Impression Patient was SBA with cuing for log roll technique and no twisting with bed flat. Patient then performed STS from bed with FWW SBA with cuing to scoot forward to EOB. Patient ambulated with CGA from her bed to chair about 5 feet away and took a seated rest break and then ambulated another 5 feet back to bed with left shoe on and sock on right foot. Patient complained of pain throughout treatment with left LE and even when she returned to bed. Patient left sidelying in bed with call light and rails up and oxygen on and nursing was notified of her pain. Physical Therapy Goals 1: pt to complete bed mobility with SBA 2: Pt to complete transfers with SBA and RW 3: Pt to ambulate 80' with SBA and RW Patient's Goals
[2018-08-16 11:18] VITALS: BP 129/71
[2018-08-16 14:33] VITALS: BP 140/91
--- NOTE | 2018-08-16 15:44 | NUR ---
Occupational Therapy Impression (I) log roll technique in/out of bed. Reports a bed rail installed at home. Independent donning/doffing shoes and socks. Donned left shoe with orthotic for functional mobility. SBA sit<>stands. CGA ambulation with RW. SBA toileting. Pt's functional mobility and safety for ADLs is limited by pain in L) hip. Pending pain improvement, pt would benefit from further rehab or home with Home Health, MOW and increased resources to assist with IADLs. Occupational Therapy Goals 1) Pt will be Mod (I) toilet task. 2) Pt will tolerate standing x3 minutes to complete grooming sinkfront. Patient's Goal
[2018-08-16 19:25] VITALS: BP 141/79
[2018-08-16] MEDS: PATCH REMOVAL 1 EA TP SCH (20:53)
[2018-08-16] MEDS: QUEtiapine FUM 25 MG TAB PO SCH (20:53)
[2018-08-17 05:30] VITALS: BP 143/78
[2018-08-17] MEDS: ALBUTEROL/IPRATROPIUM 3 ML NEB NEB SCH ×2 (05:33→11:04)
[2018-08-17 06:57] VITALS: BP 149/84
[2018-08-17] MEDS: POLYETHYLENE GLYCOL 17 GM PKT PO SCH (08:33)
[2018-08-17] MEDS: LIDOCAINE 5% PATCH TP SCH (08:33)
[2018-08-17] MEDS: MAGNESIUM HYDROXIDE* 30ML UDCP PO PRN (08:33)
[2018-08-17] MEDS: DOCUSATE SODIUM 100 MG CAP PO SCH (08:34)
[2018-08-17] MEDS: DULoxetine HCL 30 MG CAPCR PO SCH (08:34)
[2018-08-17] MEDS: METOPROLOL SUCC XL 50 MG TABCR 50 MG TAB.ER.24H PO SCH (08:34)
[2018-08-17] MEDS: GABAPENTIN 300 MG CAP PO SCH ×2 (08:34→14:34)
[2018-08-17] MEDS: ENOXAPARIN 40 MG/0.4ML SYR SC SCH (08:34)
[2018-08-17] MEDS: CLOPIDOGREL BISULFATE 75MG TAB PO SCH (08:35)
[2018-08-17] MEDS: BACLOFEN 10 MG TAB PO PRN (08:35)
--- NOTE | 2018-08-17 09:20 | NUR ---
Physical Therapy Impression Patient instructed in gait training with FWW ~50 feet with 3L of oxygen with cuing for posture and to bear weight on left LE. Patient needed CGA and min A for safety as pain in left knee was limiting ambulation. Patient is unsteady with gait and at a high ROF. Patient was SBA for bed mobility and SBA to CGA for transfers. Patient would benefit from a sub acute rehab to build strength and endurance to decrease ROF as she is at a very high ROF and has decreased endurance. Physical Therapy Goals 1: pt to complete bed mobility with SBA 2: Pt to complete transfers with SBA and RW 3: Pt to ambulate 80' with SBA and RW Patient's Goals
[2018-08-17 10:43] LABS: PLATELET COUNT, AUTOMATED 306 K/uL (150-450)
[2018-08-17] MEDS: APAP/HYDROCODONE 325/5 TAB PO PRN ×2 (11:18→15:20)
[2018-08-17 11:21] VITALS: BP 151/91
[2018-08-17] MEDS ORDERED: CYCLOBENZAPRINE HCL 10 MG TAB PO PRN (12:25)
--- NOTE | 2018-08-17 12:37 | NUR ---
Occupational Therapy Impression Prior to admission, pt was living alone and largely independent with ADLs/IADLs. (I) log roll technique in/out of bed. Reports a bed rail installed at home. SBA sit<>stands. CGA ambulation with RW. Set-up grooming seated. Pt's functional mobility and safety for ADLs is limited by pain in L) hip. Pt would benefit from further rehab to improve activity tolerance and optimize (I) for ADLs/IADLs prior to discharge home alone. Occupational Therapy Goals 1) Pt will be Mod (I) toilet task. 2) Pt will tolerate standing x3 minutes to complete grooming sinkfront. Patient's Goal
--- NOTE | 2018-08-17 12:54 | Hospitalist Progress Note ---
Subjective Progress Notes Subjective She was admitted with lumbar compression fracture. She has complaints of increased muscular pain today, which she feels limits her ability to ambulate. Patient Complains of: Cardiovascular: No: Chest Pain Respiratory: Cough; No: Shortness of Breath Physical Exam Vital Signs Date Time Temp Pulse Resp B/P (MAP) Pulse Ox O2 Delivery O2 Flow Rate FiO2 08/17/18 11:21 98.5 80 16 151/91 (111) 94 08/17/18 11:01 Nasal Cannula 3.0 Intake and Output 08/17/18 01:01 Intake Total 990 ml Balance 990 ml Intake Oral 990 ml # Voids 2 General Appearance: Alert, Awake, No Acute Distress, Afebrile Neuro: Other (tremor noted to left arm, left side weaker) Cardiovascular: Regular Rate and Rhythm Respiratory: No Respiratory Distress, Other (coarse lung sounds noted throughout upper bilateral lung ruiz) GI: Soft and Non-Tender Musculoskeletal: Other (left leg shorter than right) Extremities: Warm, Perfused; No Edema Psych: Alert & Oriented X3, Appropriate Mood & Affect Result Diagram: 08/17/18 1030 08/17/18 1030 Assessment and Plan Problems: (1) Back pain Status: Acute Assessment & Plan: She does have a L2 compression fracture but the age is unknown. This may be contributing to her pain and immobility, but does not appear to be the dominant factor. Will try to get some pain control and have her work with PT/OT on mobility. Records have been requested from several providers to help with her evaluation. Notes received from Dr. Hughes show no surgery was indicated and recommended therapy. Will try Flexeril for muscles today. (2) Left hip pain Status: Chronic Assessment & Plan: This is most likely as a result of her previous hip/femur fractures and repair. She has rather dramatic shortening of her left lower extremity as well. Unfortunately, it sounds like her pain has become progressively worse despite the gabapentin and duloxetine. Will see if PT/OT is helpful. She may need to see orthopedics as well. She will likely require rehab prior to returning home secondary to unsafe ambulation at this time. (3) Anxiety Status: Chronic Assessment & Plan: Will continue her same regimen with Cymbalta and Seroquel. (4) Benign hypertension Status: Chronic Assessment & Plan: Will continue her metoprolol. Monitor BPs. (5) CAD (coronary artery disease) Status: Chronic Assessment & Plan: She appears to be asymptomatic from this standpoint. Will continue her metoprolol and Plavix. (6) Hemorrhagic cerebrovascular accident (CVA) Status: Chronic Assessment & Plan: She has had residual mild left hemiparesis and left paresthesias. CT scan is unchanged. It appears she has tolerated the antiplatelet therapy for her CAD s/p stent. Exam Sepsis Risk: No Definite Risk CHAMP BOYER Aug 17, 2018 12:54
[2018-08-17] MEDS ORDERED: LOR5/325 PO (13:41)
--- NOTE | 2018-08-17 13:51 | Hospitalist Depart ---
Discharge Summary Reason for Hosp/Final Diag: (1) Back pain Status: Acute Hospital Course & Plan: She does have a L2 compression fracture but the age is unknown. This may be contributing to her pain and immobility, but does not appear to be the dominant factor. Will try to get some pain control and have her work with PT/OT on mobility. Records were requested from several providers to help with her evaluation. Notes were not received from Dr. Rojo, but she should have follow up appointment upon discharge. Notes received from Dr. Hughes show no surgery was indicated and recommended therapy. She has been using Natasha lofen for muscles, will continue. She will transfer to an [facility] acute rehab facility for continued therapy. She will continue Lortab for pain. (2) Left hip pain Status: Chronic Hospital Course & Plan: This is most likely as a result of her previous hip/femur fractures and repair. She has rather dramatic shortening of her left lower extremity as well. Unfortunately, it sounds like her pain has become progressively worse despite the gabapentin and duloxetine. Will see if PT/OT is helpful. She may need to see orthopedics as well. She will require rehab prior to returning home secondary to unsafe ambulation at this time. (3) Anxiety Status: Chronic Hospital Course & Plan: Will continue her same regimen with Cymbalta and Seroquel. (4) Benign hypertension Status: Chronic Hospital Course & Plan: Will continue her metoprolol. (5) CAD (coronary artery disease) Status: Chronic Hospital Course & Plan: She appears to be asymptomatic from this standpoint. Will continue her metoprolol and Plavix. (6) Hemorrhagic cerebrovascular accident (CVA) Status: Chronic Hospital Course & Plan: She has had residual mild left hemiparesis and left paresthesias. CT scan is unchanged. It appears she has tolerated the antiplatelet therapy for her CAD s/p stent. Departure Latest Vital Signs Vital Signs 08/17/18 11:21 Temp 98.5 Pulse 80 Resp 16 B/P (MAP) 151/91 (111) Pulse Ox 94 Weight (Pounds): 100 Result Diagram: 08/17/18 1030 08/17/18 1030 Condition: Improved Discharge: Rehab Facility PT/OT Follow Up For: PT For Strengthening, OT For ADL's, PT Evaluation and Treat, OT Evaluation and Treat Discharge Instructions Home Meds Active Scripts Hydrocodone Bit/Acetaminophen (HYDROCODON-ACETAMINOPHEN 5-325) 1 Each Tablet, 1- 2 EACH PO Q4H PRN for PAIN, #20 TAB Prov:CHAMP BOYERP 08/17/18 Duloxetine Hcl (CYMBALTA) 60 Mg Capsule.dr, 60 MG PO QDAY, #30 CAP 1 Refill Prov:TODD TRACEY MD 08/13/18 Metoprolol Succinate (METOPROLOL SUCCINATE) 50 Mg Tab.er.24h, 1 TAB PO QDAY, #90 TAB 1 Refill Prov:TODD TRACEY MD 06/22/18 Clopidogrel Bisulfate (PLAVIX) 75 Mg Tablet, 1 TAB PO QDAY, #30 TAB 5 Refills Prov:TODD TRACEY MD 06/01/18 Quetiapine Fumarate (SEROQUEL) 25 Mg Tablet, 25 MG PO HS, #30 TAB 4 Refills Prov:TODD TRACEY MD 05/19/18 Gabapentin (GABAPENTIN) 600 Mg Tablet, 600 MG PO TID, #90 CAP 4 Refills Prov:TODD TRACEY MD 02/08/18 Cyanocobalamin (Vitamin B-12) (B-12) 1,000 Mcg Tablet, 1 TAB PO QDAY for 30 Days, #90 TAB 3 Refills Prov:TODD TRACEY MD 11/30/17 Reported Medications Baclofen (BACLOFEN) 10 Mg Tablet, 10 MG PO TID, #30 TAB 02/08/18 Acetaminophen 500 Mg Tab (ACETAMINOPHEN EXTRA STRENGTH) 500 Mg Tablet, 500 MG PO BID PRN for pain, TAB 11/30/17 Discontinued Reported Medications Cholecalciferol (Vitamin D3) (VITAMIN D3) 2,000 Unit Capsule, 2000 UNIT PO QDAY, CAPSULE 09/30/17 Docusate Sodium (COLACE) 100 Mg Capsule, 100 MG PO BID PRN for constipation, CAPSULE 09/30/17 Diet: Regular Activity: As Tolerated, With Walker Copies to: NURIS ROJO MD; ANASTASIA HUGHES MD; TODD TRACEY MD ; Venous Thromboembolism Antithrombotics Is Pt On Any Antithrombotics?: Yes CHAMP BOYER [facility] Aug 17, 2018 13:51
[2018-08-17] MEDS ORDERED: BACLOFEN 10 MG TAB PO SCH (14:00)
--- NOTE | 2018-08-17 14:14 | RADIOLOGY IMAGING REPORT ---
FAC[place] [facility] [place] NAME: Nanci Paul : 1950 MR: [id number] V: [id number] EXAM DATE: ORDERING PHYSICIAN: CHAMP BOYER TECHNOLOGIST: Location: [facility] Patient: Nanci Paul : 1950 Visit/Account:[id number] Date of Sevice: 08/17/2018 CHEST SINGLE AP HISTORY: cough, increased oxygen use COMPARISON: 08/15/2018 FINDINGS: Frontal view chest obtained. Lines/tubes: Mild asymmetric elevation right hemidiaphragm, unchanged. Lungs/pleura: Upper lung zone hyperlucency suggesting emphysema. Coarsening of the bibasilar pulmona ry markings, likely chronic and/or subsegmental atelectasis but no gross airspace infiltrate, pleural fluid, congestive failure or pneumothorax. Cardiomediastinum and chemo: Atherosclerotic calcifications aortic arch. Calcified left hilar lymph n odes consistent with old granulomatous disease. Bones/soft tissues: Unremarkable. Additional findings: None. IMPRESSION: Chronic and/or benign-appearing findings detailed above without evidence of an acute intrathoracic pr ocess or other significant interval change. Report Dictated By: Rico Caldwell MD at 08/17/2018 2:06 PM Report E-Signed By: Rico Caldwell MD at 08/17/2018 2:07 PM WSN:[email or web address]
[2018-08-17 15:17] VITALS: BP 159/87
--- NOTE | 2018-08-17 15:38 | NUR ---
PHYSICAL THERAPY INFORMATION TRANSFER SHEET BED MOBILITY: Modified I/ AE TRANSFERS: Standby Assistance GAIT: 50 ' with RW and Minimum Assistance CGA Weightbearing Status: STAIRS: with . EXERCISES: Verbalizes Needs: Yes Understands Directions Yes Cooperative: Yes Family Teaching: No Physical Therapy Comment:
--- NOTE | 2018-08-17 15:57 | NUR ---
OCCUPATIONAL THERAPY Dressing Assistance: SBA/CGA in standing due to decreased balance Dressing Aid Required: None Bathing Assistance: N/T with OT Home Assessment: Not Completed Feeding Assistance: Independent Feeding Specialized Equipment: None Toilet Use: Standby Assistance with CGA managing clothing in standing Verbalizes Needs: Yes Understands Precautions: Yes Cooperative: Yes Family Teaching: No Occupational Therapy Comment:
== END 2018-08-17 13:42 | disposition short-term general hospital (02) ==
LOC: ER 13:51 → INTOOBSV 17:06 → MED 17:06
PROVIDERS: ADMIT Internal Medicine; ATTEND Internal Medicine
DX: S32.020A Wedge compression fracture of second lumbar vertebra, initial encounter for closed fracture (principal); M25.552 Pain in left hip; R11.10 Vomiting, unspecified; R35.0 Frequency of micturition; Z86.73 Personal history of transient ischemic attack (TIA), and cerebral infarction without residual deficits; R20.0 Anesthesia of skin; J44.9 Chronic obstructive pulmonary disease, unspecified
CPT/HCPCS: 36415; 70450; 70496; 70498; 71045; 72100; 73502; 73562; 81001; 83880; 84484; 85025; 94640; 96361; 96372; 96374; 96375; 96376; 97116; 97161; 97166; 97535; 99284; A4353; A9270; G0378; J1650; J2270; J2405; J7030; J7040; J7050; J7620; Q9967; 82040; 82247; 82310; 82374; 82435; 82565; 82947; 84075; 84132; 84155; 84295; 84450; 84460; 84520

== ENCOUNTER 2018-08-31 11:53 | Inpatient (IN) | payer MEDICARE ==
[2017-10-30 08:58] VITALS: Ht 149.9 cm; Wt 47.0 kg
[~2018-08-31] VITALS: Ht 149.9 cm; Wt 47.0 kg
[~2018-08-31 11:53] MED LIST changes: -LISI20TA29 PO; -PRED20TA6 PO
[2018-08-31] MEDS ORDERED: ALBUTEROL/IPRATROPIUM 3 ML NEB ONE (12:03)
[2018-08-31] MEDS ORDERED: ALBUTEROL/IPRATROPIUM 3 ML NEB NEB ONE ×2 (12:05→12:35)
[2018-08-31] MEDS ORDERED: IOPAMIDOL 76% 100 ML INFUS BTL 100 ML ONE (12:17)
[2018-08-31] MEDS ORDERED: NS(*) 0.9% 50 ML BAG 50 ML ONE (12:17)
--- NOTE | 2018-08-31 12:20 | ER Report ---
History and Physical Time Seen By MD: 11:57 Hx. of Stated Complaint: STROKE WITH RESP DISTRESS HPI/ROS CHIEF COMPLAINT: Possible stroke HISTORY OF PRESENT ILLNESS: This is a 68-year-old female presents to emergency department for possible stroke. Patient was in the rehabilitation Center in [place] status post compression fracture and recurrent falls. Patient has been home for 1 day, today she began to have increased shortness breath, as well as left-sided numbness. When EMS arrived, she had a oxygen saturation in the 60s. She was also complaining of left-sided numbness, they called a field stroke alert. See rise and respiratory distress, she is immediately put on BiPAP. She is answering my questions shaking her head yes or no after just a few minutes she has improved numbness on her left side, she does not indicate that she has a headache. She is alert and oriented 4. She is tolerating the BiPAP very well. REVIEW OF SYSTEMS: Constitutional: No fever, no chills. Eyes: No discharge. ENT: No sore throat. Cardiovascular: No chest pain, no palpitations. Respiratory: As above. Gastrointestinal: No abdominal pain, no vomiting. Genitourinary: No hematuria. Musculoskeletal: No back pain. Skin: No rashes. Neurological: As above. Allergies: Coded Allergies: aspirin (Verified Adverse Reaction, Mild, NAUSEA/VOMITING, 08/31/18) Home Meds Active Scripts Hydrocodone Bit/Acetaminophen (HYDROCODON-ACETAMINOPHEN 5-325) 1 Each Tablet, 1- 2 EACH PO Q4H PRN for PAIN, #20 TAB Prov:CHAMP BOYER 08/17/18 Duloxetine Hcl (CYMBALTA) 60 Mg Capsule.dr, 60 MG PO QDAY, #30 CAP 1 Refill Prov:TODD TRACEY MD 08/13/18 Metoprolol Succinate (METOPROLOL SUCCINATE) 50 Mg Tab.er.24h, 1 TAB PO QDAY, #90 TAB 1 Refill Prov:TODD TRACEY MD 06/22/18 Clopidogrel Bisulfate (PLAVIX) 75 Mg Tablet, 1 TAB PO QDAY, #30 TAB 5 Refills Prov:TODD TRACEY MD 06/01/18 Quetiapine Fumarate (SEROQUEL) 25 Mg Tablet, 25 MG PO HS, #30 TAB 4 Refills Prov:TODD TRACEY MD 05/19/18 Gabapentin (GABAPENTIN) 600 Mg Tablet, 600 MG PO TID, #90 CAP 4 Refills Prov:TODD TRACEY MD 02/08/18 Cyanocobalamin (Vitamin B-12) (B-12) 1,000 Mcg Tablet, 1 TAB PO QDAY for 30 Days, #90 TAB 3 Refills Prov:TODD TRACEY MD 11/30/17 Reported Medications Baclofen (BACLOFEN) 10 Mg Tablet, 10 MG PO TID, #30 TAB 02/08/18 Acetaminophen 500 Mg Tab (ACETAMINOPHEN EXTRA STRENGTH) 500 Mg Tablet, 500 MG PO BID PRN for pain, TAB 11/30/17 Past Medical/Surgical History The patient has a past medical surgical history of CVA, hypertension, pneumonia, COPD, chronic abdominal pain, GERD, liver disease since she was a child, urinary tract infections, As, chronic right elbow pain, arthritis, bilateral total hips, back surgery, wears dentures, reading glasses, femur fracture. Compression fracture. Reviewed Nurses Notes: Yes Hx Smoking: Yes (2 cigs a day) Smoking Status: Smoker: Status Unknown Hx Substance Use Disorder: No Hx Alcohol Use: No Constitutional Vital Sign - Last 24 Hours 08/31/18 08/31/18 08/31/18 08/31/18 11:45 11:45 11:45 11:52 Pulse 82 Resp 26 Pulse Ox 98 98 O2 Delivery Bi-PAP Bi-PAP FiO2 100.0 100.0 90.0 08/31/18 08/31/18 08/31/18 08/31/18 11:52 11:56 12:00 12:00 Pulse 88 93 Resp 28 28 B/P (MAP) 177/124 (141) Pulse Ox 96 O2 Flow Rate 15.0 FiO2 90.0 08/31/18 08/31/18 08/31/18 08/31/18 12:02 12:07 12:10 12:10 Temp 97.1 Pulse 93 84 Resp 28 36 B/P (MAP) 160/130 155/101 (119) 149/99 (116) Pulse Ox 94 97 O2 Delivery Bi-PAP FiO2 80.0 08/31/18 08/31/18 08/31/18 08/31/18 12:15 12:20 12:25 12:30 Pulse 83 Resp 21 B/P (MAP) 128/88 (101) 136/86 (103) 133/90 (104) Pulse Ox 96 FiO2 70.0 08/31/18 08/31/18 08/31/18 08/31/18 12:30 12:35 12:40 12:45 Pulse 77 Resp 23 24 B/P (MAP) 129/87 (101) 133/82 (99) 139/78 (98) Pulse Ox 98 97 FiO2 60.0 08/31/18 08/31/18 08/31/18 08/31/18 12:50 12:50 12:50 12:55 Pulse 90 73 Resp 26 24 B/P (MAP) 128/74 (92) 126/74 (91) Pulse Ox 95 96 O2 Delivery Bi-PAP FiO2 60.0 08/31/18 08/31/18 08/31/18 08/31/18 12:57 12:57 13:00 13:05 Pulse 81 75 Resp 26 30 B/P (MAP) 134/83 (100) 131/72 (91) Pulse Ox 95 94 O2 Delivery Bi-PAP FiO2 60.0 08/31/18 08/31/18 08/31/18 08/31/18 13:10 13:15 13:20 13:25 Pulse 74 73 Resp 15 26 B/P (MAP) 130/71 (90) 136/81 (99) 135/80 (98) 134/73 (93) Pulse Ox 95 92 08/31/18 08/31/18 08/31/18 08/31/18 13:30 13:35 13:40 13:45 Pulse 73 70 Resp 20 23 B/P (MAP) 146/83 (104) 115/76 (89) 133/76 (95) 139/78 (98) Pulse Ox 91 94 08/31/18 08/31/18 08/31/18 08/31/18 13:50 13:55 14:00 14:05 Pulse 72 74 Resp 18 7 B/P (MAP) 134/77 (96) 135/74 (94) 140/88 (105) 142/81 (101) Pulse Ox 91 94 08/31/18 08/31/18 08/31/18 08/31/18 14:10 14:15 14:20 14:25 Pulse 70 69 Resp 26 12 B/P (MAP) 137/80 (99) 147/81 (103) 132/77 (95) 145/76 (99) Pulse Ox 95 94 08/31/18 08/31/18 08/31/18 08/31/18 14:30 14:35 14:40 14:45 Pulse 63 69 Resp 9 17 B/P (MAP) 136/82 (100) 158/87 (110) 145/83 (103) 141/81 (101) Pulse Ox 89 89 08/31/18 08/31/18 14:50 14:55 Pulse 66 Resp 16 B/P (MAP) 144/83 (103) 144/87 (106) Pulse Ox 96 Physical Exam General Appearance: The patient is working hard to breathe, using accessory muscles, sitting in a very erect position, and respiratory distress. Eyes: 2 mm Pupils equal and round no pallor or injection. ENT, Mouth: Mucous membranes are dry. Respiratory: Lungs sounds diminished throughout, very faint expiratory wheezes. Respiratory reevaluation: Improved aeration, lung sounds improved, expiratory and inspiratory wheezes heard throughout. Cardiovascular: Regular rate and rhythm. No murmurs, clicks or rubs. Gastrointestinal: Abdomen is soft and non tender, no masses, bowel sounds normal. Neurological: Alert and oriented 4. Moving all extremities. Following all commands. No focal neuro deficits. Patient did have a difficult time lifting the left leg although she states this is secondary to her hip pain from the total hip replacement. [Skin:] [Warm and dry, no rashes.] [Musculoskeletal:] [Neck is supple non tender.] [Extremities are nontender, nonswollen and have full range of motion.] [ ] [DIFFERENTIAL DIAGNOSIS: After history and physical exam differential diagnosis was considered for] [ ] Medical Decision Making Data Points Result Diagram: 08/31/18 1145 08/31/18 1145 Laboratory Hematology Test 08/31/18 11:45 08/31/18 12:24 08/31/18 13:30 Red Blood Count 4.22 M/uL (4.17-5.56) Mean Corpuscular Volume 83.9 fL (80.0-96.0) Mean Corpuscular Hemoglobin 26.7 pg (26.0-33.0) Mean Corpuscular Hemoglobin Concent 31.9 g/dL (32.0-36.0) Red Cell Distribution Width 17.1 % (11.5-14.5) Mean Platelet Volume 8.2 fL (7.2-11.1) Neutrophils (%) (Auto) 62.4 % (39.4-72.5) Lymphocytes (%) (Auto) 27.1 % (17.6-49.6) Monocytes (%) (Auto) 5.9 % (4.1-12.4) Eosinophils (%) (Auto) 4.0 % (0.4-6.7) Basophils (%) (Auto) 0.6 % (0.3-1.4) Nucleated RBC Relative Count (auto) 0.0 /100WBC Neutrophils # (Auto) 9.4 K/uL (2.0-7.4) Lymphocytes # (Auto) 4.1 K/uL (1.3-3.6) Monocytes # (Auto) 0.9 K/uL (0.3-1.0) Eosinophils # (Auto) 0.6 K/uL (0.0-0.5) Basophils # (Auto) 0.1 K/uL (0.0-0.1) Nucleated RBC Absolute Count (auto) 0.00 K/uL Prothrombin Time 13.6 seconds (12.0-14.4) Prothromb Time International Ratio 1.03 Activated Partial Thromboplast Time 33 seconds (23-35) Sodium Level 144 mmol/L (137-145) Potassium Level 4.2 mmol/L (3.5-5.0) Chloride Level 101 mmol/L (98-107) Carbon Dioxide Level 30 mmol/L (22-31) Blood Urea Nitrogen 13 mg/dl (7-18) Creatinine 0.50 mg/dl (0.52-1.04) Glomerular Filtration Rate Calc > 60.0 Random Glucose 132 mg/dl (75-110) Calcium Level 9.5 mg/dl (8.4-10.2) Total Bilirubin 0.3 mg/dl (0.2-1.3) Aspartate Amino Transf (AST/SGOT) 35 U/L (0-35) Alanine Aminotransferase (ALT/SGPT) 29 U/L (0-56) Alkaline Phosphatase 42 U/L (0-126) B-Type Natriuretic Peptide 467 pg/ml (0-100) Total Protein 8.4 g/dl (6.3-8.2) Albumin 4.5 g/dl (3.5-5.0) Human Chorionic Gonadotropin, Qual Negative (NEGATIVE) Blood Gas Puncture Site Left radial Blood Gas Patient Temperature 97.1 DEGREES Arterial Blood pH 7.36 (7.35-7.45) Arterial Blood Partial Pressure CO2 55 mmHg (32-37) Arterial Blood Partial Pressure O2 146 mmHg (60-80) Arterial Blood HCO3 31 mmol/L (20-26) Arterial Blood Oxygen Saturation 99 % (92-100) Arterial Blood Base Excess 6.0 mmol/L Alvaro Test Acceptable Oxygen Liters/Minute 70% Urine Color Straw Urine Clarity Clear Urine pH 7.0 pH (4.8-9.5) Urine Specific [place] >1.060 Urine Protein Negative mg/dL (NEGATIVE) Urine Glucose (UA) Negative mg/dL (NEGATIVE) Urine Ketones Negative mg/dL (NEGATIVE) Urine Blood Negative (NEGATIVE) Urine Nitrite Negative (NEGATIVE) Urine Bilirubin Negative (NEGATIVE) Urine Urobilinogen Negative mg/dL (0.2-1.9) Urine Leukocyte Esterase Trace (NEGATIVE) Urine RBC 1 /HPF (0-2/HPF) Urine WBC 2 /HPF (0-5/HPF) Urine Squamous Epithelial Cells Many /LPF (NONE-FEW) Urine Bacteria Negative /HPF (NONE-FEW) Urine Mucus None /HPF (NONE-FEW) Chemistry Test 08/31/18 11:45 08/31/18 12:24 08/31/18 13:30 White Blood Count 15.0 k/uL (4.5-11.0) Red Blood Count 4.22 M/uL (4.17-5.56) Hemoglobin 11.3 g/dL (12.0-16.0) Hematocrit 35.4 % (34.0-47.0) Mean Corpuscular Volume 83.9 fL (80.0-96.0) Mean Corpuscular Hemoglobin 26.7 pg (26.0-33.0) Mean Corpuscular Hemoglobin Concent 31.9 g/dL (32.0-36.0) Red Cell Distribution Width 17.1 % (11.5-14.5) Platelet Count 386 K/uL (150-450) Mean Platelet Volume 8.2 fL (7.2-11.1) Neutrophils (%) (Auto) 62.4 % (39.4-72.5) Lymphocytes (%) (Auto) 27.1 % (17.6-49.6) Monocytes (%) (Auto) 5.9 % (4.1-12.4) Eosinophils (%) (Auto) 4.0 % (0.4-6.7) Basophils (%) (Auto) 0.6 % (0.3-1.4) Nucleated RBC Relative Count (auto) 0.0 /100WBC Neutrophils # (Auto) 9.4 K/uL (2.0-7.4) Lymphocytes # (Auto) 4.1 K/uL (1.3-3.6) Monocytes # (Auto) 0.9 K/uL (0.3-1.0) Eosinophils # (Auto) 0.6 K/uL (0.0-0.5) Basophils # (Auto) 0.1 K/uL (0.0-0.1) Nucleated RBC Absolute Count (auto) 0.00 K/uL Prothrombin Time 13.6 seconds (12.0-14.4) Prothromb Time International Ratio 1.03 Activated Partial Thromboplast Time 33 seconds (23-35) Glomerular Filtration Rate Calc > 60.0 Calcium Level 9.5 mg/dl (8.4-10.2) Total Bilirubin 0.3 mg/dl (0.2-1.3) Aspartate Amino Transf (AST/SGOT) 35 U/L (0-35) Alanine Aminotransferase (ALT/SGPT) 29 U/L (0-56) Alkaline Phosphatase 42 U/L (0-126) B-Type Natriuretic Peptide 467 pg/ml (0-100) Total Protein 8.4 g/dl (6.3-8.2) Albumin 4.5 g/dl (3.5-5.0) Human Chorionic Gonadotropin, Qual Negative (NEGATIVE) Blood Gas Puncture Site Left radial Blood Gas Patient Temperature 97.1 DEGREES Arterial Blood pH 7.36 (7.35-7.45) Arterial Blood Partial Pressure CO2 55 mmHg (32-37) Arterial Blood Partial Pressure O2 146 mmHg (60-80) Arterial Blood HCO3 31 mmol/L (20-26) Arterial Blood Oxygen Saturation 99 % (92-100) Arterial Blood Base Excess 6.0 mmol/L Alvaro Test Acceptable Oxygen Liters/Minute 70% Urine Color Straw Urine Clarity Clear Urine pH 7.0 pH (4.8-9.5) Urine Specific [place] >1.060 Urine Protein Negative mg/dL (NEGATIVE) Urine Glucose (UA) Negative mg/dL (NEGATIVE) Urine Ketones Negative mg/dL (NEGATIVE) Urine Blood Negative (NEGATIVE) Urine Nitrite Negative (NEGATIVE) Urine Bilirubin Negative (NEGATIVE) Urine Urobilinogen Negative mg/dL (0.2-1.9) Urine Leukocyte Esterase Trace (NEGATIVE) Urine RBC 1 /HPF (0-2/HPF) Urine WBC 2 /HPF (0-5/HPF) Urine Squamous Epithelial Cells Many /LPF (NONE-FEW) Urine Bacteria Negative /HPF (NONE-FEW) Urine Mucus None /HPF (NONE-FEW) Coagulation Test 08/31/18 11:45 Prothrombin Time 13.6 seconds Prothromb Time International Ratio 1.03 Activated Partial Thromboplast Time 33 seconds Urinalysis Test 08/31/18 13:30 Urine Color Straw Urine Clarity Clear Urine pH 7.0 pH (4.8-9.5) Urine Specific [place] >1.060 Urine Protein Negative mg/dL (NEGATIVE) Urine Glucose (UA) Negative mg/dL (NEGATIVE) Urine Ketones Negative mg/dL (NEGATIVE) Urine Blood Negative (NEGATIVE) Urine Nitrite Negative (NEGATIVE) Urine Bilirubin Negative (NEGATIVE) Urine Urobilinogen Negative mg/dL (0.2-1.9) Urine Leukocyte Esterase Trace (NEGATIVE) Urine RBC 1 /HPF (0-2/HPF) Urine WBC 2 /HPF (0-5/HPF) Urine Squamous Epithelial Cells Many /LPF (NONE-FEW) Urine Bacteria Negative /HPF (NONE-FEW) Urine Mucus None /HPF (NONE-FEW) EKG/Imaging EKG Interpretation 12 lead EKG: Time of EKG 1204. Rhythm: Normal sinus rhythm, ventricular rate 82 bpm. [place]: normal QRS: normal ST segments: No ST depression or elevation identified. Imaging PATIENT NAME: Nanci Paul : 1950 MR: [id number] V: [id number] EXAM DATE: ORDERING PHYSICIAN: TIESHA ATKINS TECHNOLOGIST: Location: [facility] [place] Patient: Nnaci Paul : 1950 Visit/Account:[id number] Date of Sevice: 08/31/2018 CT angiogram chest with contrast Indication: Respiratory distress. Comparison: 04/09/2011. Technique: Axial CT images are obtained through the chest after administration of 75 mL Isovue 370 IV contrast. Reformatted coronal and sagittal images were reviewed as well as coronal MIP images. One of the following dose optimization techniques was utilized in the performance of this exam: automated exposure control; adjustment of the mA and/or kV according to the patient's size; or use of an iterative reconstruction technique. Specific details can be referenced in the facility's radiology CT exam operational policy. FINDINGS: No evidence of filling defect within the pulmonary vasculature to suggest pulmonary embolus. Heart is normal size. There is minimal anterior pericardial fluid/thickening which is similar to the previous examination and measures approximately 7.5 mm. No diffuse pericardial fluid. The aorta shows atherosclerotic calcific changes without aneurysm or dissection. The mediastinum and hilar regions do show a few small lymph nodes without any enlarged lymph node or abnormal density. Lungs show no focal areas of consolidation, effusion or pneumothorax. Mild dependent atelectasis and mild scarring. No discrete nodule or focal interstitial opacities. Airways are clear. Bony structures show no acute fractures or aggressive bony lesions. Degenerative change seen spine. The chest wall shows no enlarged axillary lymph nodes or masses The right kidney does show 2.3 cm cyst. The upper abdomen is otherwise unremarkable. IMPRESSION: 1. No evidence of pulmonary embolus. 2. No acute cardiothoracic abnormality 3. Other chronic findings as above. Report Dictated By: Ramesh Raya at 08/31/2018 1:01 PM Report E-Signed By: Ramesh Raya at 08/31/2018 1:11 PM WSN:[id number] PATIENT NAME: Nanci Paul : 1950 MR: [id number] V: [id number] EXAM DATE: ORDERING PHYSICIAN: TIESHA ATKINS TECHNOLOGIST: Location: [facility] [place] Patient: Nanci Paul : 1950 Visit/Account:[id number] Date of Sevice: 08/31/2018 ADDENDUM #1 ADDENDUM: A right thalamic lacunar infarct is slightly more visible on this exam but likely unchanged and favored to represent a chronic lacunar infarct. These noncontrast head CT results were called to TIESHA ATKINS on 08/31/2018 12:57 PM.. Report Dictated By: Domenic Kent MD at 08/31/2018 12:55 PM Report E-Signed By: Domenic Kent MD at 08/31/2018 12:57 PM ORIGINAL REPORT Head CT scan without contrast HISTORY: Evaluate for infarct COMPARISONS: August 13, 2018 TECHNIQUE: Non-contrast head CT was performed with sagittal and coronal reformations. One of the following dose optimization techniques was utilized in the performance of this exam: automated exposure control; adjustment of the mA and/or kV according to patient size; or use of iterative reconstruction technique. Specific details can be referenced in the facility's radiology CT exam operational policy. FINDINGS: There is no intracranial hemorrhage, hydrocephalus or midline shift. The basal cisterns, lea-white differentiation, and convexity sulci are maintained. Normal orbital soft tissues. Unchanged patchy white matter hypoattenuation. The mastoid air cells are clear. The paranasal sinuses are clear. The osseous structures are normal. IMPRESSION: No acute intracranial abnormality. Unchanged white matter chronic small vessel ischemic change. Report Dictated By: Domenic Kent MD at 08/31/2018 12:50 PM Report E-Signed By: Domenic Knet MD at 08/31/2018 12:53 PM WSN:[email or web address] PATIENT NAME: Nanci Paul : 1950 MR: [id number] V: [id number] EXAM DATE: ORDERING PHYSICIAN: TIESHA ATKINS TECHNOLOGIST: Location: [facility] [place] Patient: Nanci Paul : 1950 Visit/Account:[id number] Date of Sevice: 08/31/2018 Exam type: CHEST SINGLE AP History: RESP DISTRESS Comparison: August 17, 2018. Findings: There is increased peribronchial thickening in the medial right lower lobe. No evidence of pleural effusions or overt pulmonary edema. Cardiac silhouette is normal in size. IMPRESSION: 1. Increased peribronchial thickening in the medial right lower lobe likely related to an acute peribronchial inflammatory process Report Dictated By: Jessa Zayas MD at 08/31/2018 12:15 PM Report E-Signed By: Jessa Zayas MD at 08/31/2018 12:16 PM VAN:[email or web address] ED Course/Re-evaluation Clinical Indication for ER IV: Hydration, IV Access ED Course The patient was admitted to room. A history and physical obtained. Differential diagnoses were considered. Upon arrival patient was in respiratory distress, patient was immediately put on the BiPAP, while she was being placed on BiPAP I was able to speak with the patient briefly, she does want CPR, she is a full cod e, she does want intubation should it be required. Patient did very well on BiPAP, ultimately she was able to relax, her work of breathing improved, oxygenation improved, she was able to go to the CT without complications, she had a negative head and chest CT. Mildly elevated white count of 15,000, could be secondary to stress, glucose 132, ABG showing chronic respiratory acidosis. Negative UA. The patient's son was at the bedside as well as other family members, I did talk to them about the potential for intubation and admission to ICU, son was tearful but expressed understanding, he does have power of patent prosecution attorney but his mother is able to answer my questions appropriately right now. The numbn ess and tingling on the left side did resolve, I do believe that the sensation that she is experiencing could be secondary to hypoxia and anxiety. I did speak with Dr. Mahendra Johnston, the hospitalist on-call was no blow, he's except patient and the hospitalist services, patient as she was doing well at the time of admission will be going to the medical floor on BiPAP. 08/31/2018 12:15:18 pm I was able to get some more information from the patient when she is on a BiPAP, her story rate has decreased from about 36-40 down to 28-32, oxygenation is improved, I asked her if she called the ambulance because she couldn't breathe, she indicated yes that's the reason she called not because of stroke symptoms. I asked once again if she is agreeable to intubation and the scans, she said yes, she understands that she will likely go to the ICU. I did tell her I'm concerned that there may be a pulmonary embolus. 08/31/2018 12:34:17 pm the patient is tolerating the BiPAP even better, she is more relaxed, we did lay the patient back flat to see if she tolerates this well, she did attempt the CT without intubation at this time. The patient's son who is power of patent prosecution attorney is at the bedside, he does understand that we may need to intubate the patient, even if she is tolerating the BiPAP well at this time. 08/31/2018 2:45:52 pm patient doing significant only better after being on BiPAP, I did speak with Dr. Mahendra Johnston, the hospitalist application technical designer, the patient will be admitted to medical floor for COPD exacerbation and respiratory distress. Decision to Disposition Date: Aug 31, 2018 Decision to Disposition Time: 14:45 Critical Care Time I spent a total of 30 minutes of critical care time in obtaining history, performing a physical exam, bedside monitoring of interventions, collecting and interpreting tests and discussion with consultants but not including time spent performing procedures. Depart Departure Latest Vital Signs Vital Signs Date Time Temp Pulse Resp B/P (MAP) Pulse Ox O2 Delivery O2 Flow Rate FiO2 08/31/18 14:55 144/87 (106) 08/31/18 14:50 66 16 96 08/31/18 12:57 Bi-PAP 60.0 08/31/18 12:02 97.1 08/31/18 11:56 15.0 Impression: Primary Impression: Respiratory distress Additional Impression: COPD exacerbation Condition: Improved Disposition: Admitted from ER Referrals: TODD TRACEY MD (PCP) Problem Qualifiers TIESHA ATKINS [employer]-BC Aug 31, 2018 12:20
--- NOTE | 2018-08-31 12:23 | RADIOLOGY IMAGING REPORT ---
FACILITY: [facility] [place] PATIENT NAME: Nanci Paul : 1950 MR: [id number] V: [id number] EXAM DATE: ORDERING PHYSICIAN: TIESHA ATKINS TECHNOLOGIST: [place] [facility] [place] Patient: Nanci Paul : 1950 Visit/Account:[id number] Date of Sevice: 08/31/2018 Exam type: CHEST SINGLE AP History: RESP DISTRESS Comparison: August 17, 2018. Findings: There is increased peribronchial thickening in the medial right lower lobe. No evidence of pleural e ffusions or overt pulmonary edema. Cardiac silhouette is normal in size. IMPRESSION: 1. Increased peribronchial thickening in the medial right lower lobe likely related to an acute dandy bronchial inflammatory process Report Dictated By: Jessa Zayas MD at 08/31/2018 12:15 PM Report E-Signed By: Jessa Zayas MD at 08/31/2018 12:16 PM WSN:[id number]
[2018-08-31 12:45] LABS: INR 1.03
[2018-08-31] MEDS ORDERED: NS(*) 0.9% 500 ML BAG 500 ML IV ONE (12:50)
--- NOTE | 2018-08-31 12:57 | EKG ---
FACILITY: [facility] PATIENT NAME: LUCA WYATT : [id number] MR: [id number] V: [id number] EXAM DATE: ORDERING PHYSICIAN: TIESHA ATKINS TECHNOLOGIST: EDA Pickering Reason : TIA Blood Pressure : / mmHG Vent. Rate : 082 BPM Atrial Rate : 082 BPM P-R Int : 134 ms QRS Dur : 068 ms QT Int : 388 ms P-R-T Axes : 086 046 058 degrees QTc Int : 453 ms Sinus rhythm Possible biatrial enlargement When compared with ECG of 20-DEC-2017 13:01, No significant change was found Confirmed by SIRIA GARCIA ([id number]) on 08/31/2018 9:03:22 PM Referred By: Confirmed By:SIRIA GARCIA
--- NOTE | 2018-08-31 12:59 | RADIOLOGY IMAGING REPORT ---
FACILITY: [facility] - [place] PATIENT NAME: Nanci Paul : 1950 MR: [id number] V: [id number] EXAM DATE: ORDERING PHYSICIAN: TIESHA ATKINS TECHNOLOGIST: Location: [facility] Patient: Nanci Paul : 1950 Visit/Account:[id number] Date of Sevice: 08/31/2018 ADDENDUM #1 ADDENDUM: A right thalamic lacunar infarct is slightly more visible on this exam but likely unchanged and favor ed to represent a chronic lacunar infarct. These noncontrast head CT results were called to TIESHA ATKINS on 08/31/2018 12:57 PM.. Report Dictated By: Domenic Kent MD at 08/31/2018 12:55 PM Report E-Signed By: Domenic Kent MD at 08/31/2018 12:57 PM ORIGINAL REPORT Head CT scan without contrast HISTORY: Evaluate for infarct COMPARISONS: August 13, 2018 TECHNIQUE: Non-contrast head CT was performed with sagittal and coronal reformations. One of the following dose optimization techniques was utilized in the performance of this exam: autom ated exposure control; adjustment of the mA and/or kV according to patient size; or use of iterative reconstruction technique. Specific details can be referenced in the facility's radiology CT exam ope rational policy. FINDINGS: There is no intracranial hemorrhage, hydrocephalus or midline shift. The basal cisterns, lea-white differentiation, and convexity sulci are maintained. Normal orbital soft tissues. Unchanged patchy wh ite matter hypoattenuation. The mastoid air cells are clear. The paranasal sinuses are clear. The osseous structures are normal . IMPRESSION: No acute intracranial abnormality. Unchanged white matter chronic small vessel ischemic change. Report Dictated By: Domenic Kent MD at 08/31/2018 12:50 PM Report E-Signed By: Domenic Kent MD at 08/31/2018 12:53 PM WSN:[email or web address]
[2018-08-31 13:01] LABS: PLATELET COUNT, AUTOMATED 386 K/uL (150-450)
--- NOTE | 2018-08-31 13:17 | RADIOLOGY IMAGING REPORT ---
FACILITY: [facility] [place] PATIENT NAME: Nanci Paul : 1950 MR: [id number] V: [id number] EXAM DATE: ORDERING PHYSICIAN: TIESHA ATKINS TECHNOLOGIST: [facility] Patient: Nanci Paul : 1950 Visit/Account:[id number] Date of Sevice: 08/31/2018 CT angiogram chest with contrast Indication: Respiratory distress. Comparison: 04/09/2011. Technique: Axial CT images are obtained through the chest after administration of 75 mL Isovue 370 IV contrast. Reformatted coronal and sagittal images were reviewed as well as coronal MIP images. One of the following dose optimization techniques was utilized in the performance of this exam: auto mated exposure control; adjustment of the mA and/or kV according to the patient's size; or use of an iterative reconstruction technique. Specific details can be referenced in the facility's radiology C T exam operational policy. FINDINGS: No evidence of filling defect within the pulmonary vasculature to suggest pulmonary embolus. Heart is normal size. There is minimal anterior pericardial fluid/thickening which is similar to the previous examination and measures approximately 7.5 mm. No diffuse pericardial fluid. The aorta shows atherosclerotic calcific changes without aneurysm or dissection. The mediastinum and hilar regions d o show a few small lymph nodes without any enlarged lymph node or abnormal density. Lungs show no focal areas of consolidation, effusion or pneumothorax. Mild dependent atelectasis and mild scarring. No discrete nodule or focal interstitial opacities. Airways are clear. Bony structures show no acute fractures or aggressive bony lesions. Degenerative change seen spine. T he chest wall shows no enlarged axillary lymph nodes or masses The right kidney does show 2.3 cm cyst. The upper abdomen is otherwise unremarkable. IMPRESSION: 1. No evidence of pulmonary embolus. 2. No acute cardiothoracic abnormality 3. Other chronic findings as above. Report Dictated By: Ramesh Raya at 08/31/2018 1:01 PM Report E-Signed By: Ramesh Raya at 08/31/2018 1:11 PM WSN:[id number]
[2018-08-31 15:51] VITALS: BP 140/78
[2018-08-31] MEDS ORDERED: methylPREDNIS SUCC 125 MG/2ML IVP ONE (16:00)
[2018-08-31] MEDS ORDERED: LEVALBUTEROL 1.25 MG/3 ML NEB NEB PRN (16:10)
--- NOTE | 2018-08-31 16:17 | History & Physical ---
History of Present Illness Chief Complaint Short of breath History of Present Illness 68yo female with PMHx significant for previous CVA with mild left-sided weakness and paresthesias, lumbar spine fusion, left hip fracture s/p gamma nail repair, left mid femur periprosthetic fracture s/p intramedullary tasneem placement, chronic pain, COPD. She states she had onset of cough a few days ago. Since that time she has had increasing dyspnea which became much worse this AM. She states she noted some audible wheezing. She denied any fevers/chills. She denied any CP or palpitations. She did notice some clamminess. She has also had some nausea, but no emesis. She was evaluated in the ER. Her CT pulmonary angiogram was negative for PE or infiltrate. Her troponin was normal. Her WBC count was slightly elevated. Her BNP was elevated as well. She was found to have CO2 retention on her ABG (55), but with a normal/compensated pH (7.36). She was placed on BiPAP and given nebulized respiratory treatments with improvement. She was recommended for admission. History Problems: (1) Paresthesia Status: Chronic (2) Anxiety and depression Status: Chronic (3) Hemiplegia affecting left nondominant side Status: Chronic (4) COPD (chronic obstructive pulmonary disease) Status: Chronic (5) Iron deficiency Status: Chronic (6) Thyroid nodule Status: Chronic (7) B12 deficiency Status: Chronic (8) Closed intertrochanteric fracture of left hip Status: Resolved (9) Mary-prosthetic femoral shaft fracture Status: Resolved (10) Benign hypertension Status: Chronic (11) Back pain Status: Chronic (12) Left hip pain Status: Chronic (13) CAD (coronary artery disease) Status: Chronic (14) Hemorrhagic cerebrovascular accident (CVA) Status: Chronic (15) Status post coronary artery stent placement Status: Chronic Home Meds Active Scripts Hydrocodone Bit/Acetaminophen (HYDROCODON-ACETAMINOPHEN 5-325) 1 Each Tablet, 1- 2 EACH PO Q4H PRN for PAIN, #20 TAB Prov:CHAMP BOYER 08/17/18 Duloxetine Hcl (CYMBALTA) 60 Mg Capsule.dr, 60 MG PO QDAY, #30 CAP 1 Refill Prov:TODD TRACEY MD 08/13/18 Metoprolol Succinate (METOPROLOL SUCCINATE) 50 Mg Tab.er.24h, 1 TAB PO QDAY, #90 TAB 1 Refill Prov:TODD TRACEY MD 06/22/18 Clopidogrel Bisulfate (PLAVIX) 75 Mg Tablet, 1 TAB PO QDAY, #30 TAB 5 Refills Prov:TODD TRACEY MD 06/01/18 Quetiapine Fumarate (SEROQUEL) 25 Mg Tablet, 25 MG PO HS, #30 TAB 4 Refills Prov:TODD TRACEY MD 05/19/18 Gabapentin (GABAPENTIN) 600 Mg Tablet, 600 MG PO TID, #90 CAP 4 Refills Prov:TODD TRACEY MD 02/08/18 Cyanocobalamin (Vitamin B-12) (B-12) 1,000 Mcg Tablet, 1 TAB PO QDAY for 30 Days, #90 TAB 3 Refills Prov:TODD TRACEY MD 11/30/17 Reported Medications Baclofen (BACLOFEN) 10 Mg Tablet, 10 MG PO TID, #30 TAB 02/08/18 Acetaminophen 500 Mg Tab (ACETAMINOPHEN EXTRA STRENGTH) 500 Mg Tablet, 500 MG PO BID PRN for pain, TAB 11/30/17 Allergies: Coded Allergies: aspirin (Verified Adverse Reaction, Mild, NAUSEA/VOMITING, 08/31/18) Patient History: FH: cancer FH: diabetes mellitus BROTHER Hx Smoking: Yes (2 cigs a day) Smoking Status: Smoker: Status Unknown Caffeine/Cups Per Day: OCC Hx Alcohol Use: No Hx Substance Use Disorder: No Social Drug Use: Never Review of Systems Constitutional: No Fever, No Chills Neurological: Weakness; No Syncope Eyes: No Vision Change, No Loss of Vision ENT: No Hearing Loss Cardiovascular: No Chest Pain, No Palpitations Respiratory: Shortness of Breath, Cough, Wheezing Gastrointestinal: Nausea; No Vomiting, No Diarrhea, No Hematemesis, No Hematochezia, No Melena, No Abdominal Pain Genitourinary: No Dysuria Musculoskeletal: Pain, Impaired Mobility Psychiatric: Depression, Anxiety Exam Vital Signs Vital Signs Date Time Temp Pulse Resp B/P (MAP) Pulse Ox O2 Delivery O2 Flow Rate FiO2 08/31/18 15:51 97.4 66 34 140/78 (98) 98 Bi-PAP 08/31/18 12:57 60.0 08/31/18 11:56 15.0 General Appearance: Alert, Awake, Other (BiPAP on) Neuro: Other (she does have some mild diffuse weakness, but no apparent focal deficit) Eyes: PERRLA ENT: Oropharynx Clear Neck: No Masses Cardiovascular: Regular Rate and Rhythm (no obvious murmur), No Edema Respiratory: Other (diminished breath sounds throughout/no current wheezes or rales) GI: Abd Soft and Non-Tender Musculoskeletal: Other (left lower extremity is significantly shorter than right) Extremities: Warm, Perfused Integumentary: Generalized Fragile Skin Medical Decision Making Data Points Result Diagram: 08/31/18 1145 08/31/18 1145 Item Value Date Time Oxygen Liters/Minute 70% 08/31/18 1224 Alvaro Test Acceptable 08/31/18 1224 Arterial Blood Base Excess 6.0 mmol/L 08/31/18 1224 Arterial Blood Oxygen Saturation 99 % 08/31/18 1224 Arterial Blood HCO3 31 mmol/L H 08/31/18 1224 Arterial Blood Partial Pressure O2 146 mmHg *H 08/31/18 1224 Arterial Blood Partial Pressure CO2 55 mmHg *H 08/31/18 1224 Arterial Blood pH 7.36 08/31/18 1224 Blood Gas Patient Temperature 97.1 DEGREES 08/31/18 1224 Blood Gas Puncture Site Left radial 08/31/18 1224 Urine Mucus None /HPF 08/31/18 1330 Urine Bacteria Negative /HPF 08/31/18 1330 Urine Squamous Epithelial Cells Many /LPF H 08/31/18 1330 Urine WBC 2 /HPF 08/31/18 1330 Urine RBC 1 /HPF 08/31/18 1330 Urine Leukocyte Esterase Trace H 08/31/18 1330 Urine Urobilinogen Negative mg/dL 08/31/18 1330 Urine Bilirubin Negative 08/31/18 1330 Urine Nitrite Negative 08/31/18 1330 Urine Blood Negative 08/31/18 1330 Urine Ketones Negative mg/dL 08/31/18 1330 Urine Glucose (UA) Negative mg/dL 08/31/18 1330 Urine Protein Negative mg/dL 08/31/18 1330 Urine Specific [place] >1.060 08/31/18 1330 Urine pH 7.0 pH 08/31/18 1330 Urine Clarity Clear 08/31/18 1330 Urine Color Straw 08/31/18 1330 Activated Partial Thromboplast Time 33 seconds 08/31/18 1145 Prothromb Time International Ratio 1.03 08/31/18 1145 Prothrombin Time 13.6 seconds 08/31/18 1145 Human Chorionic Gonadotropin, Qual Negative 08/31/18 1145 B-Type Natriuretic Peptide 467 pg/ml H 08/31/18 1145 Albumin 4.5 g/dl 08/31/18 1145 Total Protein 8.4 g/dl H 08/31/18 1145 Troponin I < 0.012 ng/ml 08/31/18 1145 Alkaline Phosphatase 42 U/L 08/31/18 1145 Alanine Aminotransferase (ALT/SGPT) 29 U/L 08/31/18 1145 Aspartate Amino Transf (AST/SGOT) 35 U/L 08/31/18 1145 Total Bilirubin 0.3 mg/dl 08/31/18 1145 Calcium Level 9.5 mg/dl 08/31/18 1145 EKG / Imaging EKG Interpretation PATIENT NAME: NANCI PAUL : [id number] MR: [id number] V: [id number] EXAM DATE: ORDERING PHYSICIAN: TIESHA ATKINS TECHNOLOGIST: EDA Pickering Reason : TIA Blood Pressure : / mmHG Vent. Rate : 082 BPM Atrial Rate : 082 BPM P-R Int : 134 ms QRS Dur : 068 ms QT Int : 388 ms P-R-T Axes : 086 046 058 degrees QTc Int : 453 ms Normal sinus rhythm Normal ECG When compared with ECG of 20-DEC-2017 13:01, No significant change was found Imaging PATIENT NAME: Nanci Paul : 1950 MR: [id number] V: [id number] EXAM DATE: ORDERING PHYSICIAN: TIESHA WikiswayGLADISEpoqueANGELES TECHNOLOGIST: Location: [facility] Patient: Nanci Paul : 1950 Visit/Account:[id number] Date of Sevice: 08/31/2018 Exam type: CHEST SINGLE AP History: RESP DISTRESS Comparison: August 17, 2018. Findings: There is increased peribronchial thickening in the medial right lower lobe. No evidence of pleural effusions or overt pulmonary edema. Cardiac silhouette is normal in size. IMPRESSION: 1. Increased peribronchial thickening in the medial right lower lobe likely related to an acute peribronchial inflammatory process Report Dictated By: Jessa Zayas MD at 08/31/2018 12:15 PM Report E-Signed By: Jessa Zayas MD at 08/31/2018 12:16 PM WSN:[id number] NAME: Nanci Paul : 1950 MR: [id number] V: [id number] EXAM DATE: ORDERING PHYSICIAN: TIESHA ATKINS TECHNOLOGIST: Location: [facility] Patient: Nanci Paul : 1950 Visit/Account:[id number] Date of Sevice: 08/31/2018 CT angiogram chest with contrast Indication: Respiratory distress. Comparison: 04/09/2011. Technique: Axial CT images are obtained through the chest after administration of 75 mL Isovue 370 IV contrast. Reformatted coronal and sagittal images were reviewed as well as coronal MIP images. One of the following dose optimization techniques was utilized in the performance of this exam: automated exposure control; adjustment of the mA and/or kV according to the patient's size; or use of an iterative reconstruction technique. Specific details can be referenced in the facility's radiology CT exam operational policy. FINDINGS: No evidence of filling defect within the pulmonary vasculature to suggest pulmonary embolus. Heart is normal size. There is minimal anterior pericardial fluid/thickening which is similar to the previous examination and measures approximately 7.5 mm. No diffuse pericardial fluid. The aorta shows atherosclerotic calcific changes without aneurysm or dissection. The mediastinum and hilar regions do show a few small lymph nodes without any enlarged lymph node or abnormal density. Lungs show no focal areas of consolidation, effusion or pneumothorax. Mild dependent atelectasis and mild scarring. No discrete nodule or focal interstitial opacities. Airways are clear. Bony structures show no acute fractures or aggressive bony lesions. Degenerative change seen spine. The chest wall shows no enlarged axillary lymph nodes or masses The right kidney does show 2.3 cm cyst. The upper abdomen is otherwise unremarkable. IMPRESSION: 1. No evidence of pulmonary embolus. 2. No acute cardiothoracic abnormality 3. Other chronic findings as above. Report Dictated By: Ramesh Raya at 08/31/2018 1:01 PM Report E-Signed By: Ramesh Raya at 08/31/2018 1:11 PM WSN:[id number] PATIENT NAME: Nanci Paul : 1950 MR: [id number] V: [id number] EXAM DATE: ORDERING PHYSICIAN: TIESHA ATKINS TECHNOLOGIST: Location: [facility] Patient: Nanci Paul : 1950 Visit/Account:[id number] Date of Sevice: 08/31/2018 ADDENDUM #1 ADDENDUM: A right thalamic lacunar infarct is slightly more visible on this exam but likely unchanged and favored to represent a chronic lacunar infarct. These noncontrast head CT results were called to TIESHA ATKINS on 08/31/2018 12:57 PM.. Report Dictated By: Domenic Kent MD at 08/31/2018 12:55 PM Report E-Signed By: Domenic Kent MD at 08/31/2018 12:57 PM ORIGINAL REPORT Head CT scan without contrast HISTORY: Evaluate for infarct COMPARISONS: August 13, 2018 TECHNIQUE: Non-contrast head CT was performed with sagittal and coronal reformations. One of the following dose optimization techniques was utilized in the per formance of this exam: automated exposure control; adjustment of the mA and/or kV according to patient size; or use of iterative reconstruction technique. Specific details can be referenced in the facility's radiology CT exam operational policy. FINDINGS: There is no intracranial hemorrhage, hydrocephalus or midline shift. The basal cisterns, lea-white differentiation, and convexity sulci are maintained. Normal orbital soft tissues. Unchanged patchy white matter hypoattenuation. The mastoid air cells are clear. The paranasal sinuses are clear. The osseous structures are normal. IMPRESSION: No acute intracranial abnormality. Unchanged white matter chronic small vessel ischemic change. Report Dictated By: Domenic Kent MD at 08/31/2018 12:50 PM Report E-Signed By: Domenic Kent MD at 08/31/2018 12:53 PM WSN:[id number] Assessment and Plan Problems: (1) Dyspnea Status: Acute Assessment & Plan: It appears to be probable exacerbation of her COPD, but there are other potential etiologies. Will admit to medical floor, continue BiPAP, give supplemental oxygen/respiratory treatments/BiPAP, start IV steroids as well. Will also check echocardiogram and serial troponins. Watch closely and modify therapy as needed. (2) CAD (coronary artery disease) Status: Chronic Assessment & Plan: Continue metoprolol, Plavix. Will also check serial troponins as noted above. (3) Anxiety and depression Status: Chronic Assessment & Plan: Continue quetiapine, duloxetine. (4) Benign hypertension Status: Chronic Assessment & Plan: Monitor BPs. Continue metoprolol. Modify therapy as needed. (5) Back pain Status: Chronic Assessment & Plan: Will continue her baclofen and Lortab. Copies to: TODD TRACEY MD ; Venous Thromboembolism Antithrombotics Is Pt On Any Antithrombotics?: Yes Exam Sepsis Risk: No Definite Risk SIRIA GARCIA MD Aug 31, 2018 16:17
[2018-08-31] MEDS: NS(*) 0.9% 1000 ML BAG 1,000 ML IV PRN (16:43)
[2018-08-31] MEDS: APAP/HYDROCODONE 325/5 TAB PO PRN ×2 (16:55→21:08)
[2018-08-31] MEDS: LEVALBUTEROL 1.25 MG/3 ML NEB NEB SCH (17:54)
[2018-08-31 18:51] VITALS: BP 160/92
[2018-08-31] MEDS: QUEtiapine FUM 25 MG TAB PO SCH (21:08)
[2018-08-31] MEDS: BACLOFEN 10 MG TAB PO SCH (21:08)
[2018-08-31] MEDS: GABAPENTIN 300 MG CAP PO SCH (21:08)
[2018-09-01 00:01] VITALS: BP 146/73
[2018-09-01 03:12] VITALS: BP 159/87
[2018-09-01] MEDS: LEVALBUTEROL 1.25 MG/3 ML NEB NEB SCH ×3 (05:02→17:37)
[2018-09-01] MEDS: methylPREDNIS SUCC 125 MG/2ML IVP SCH ×2 (05:55→18:04)
[2018-09-01 06:03] LABS: PLATELET COUNT, AUTOMATED 274 K/uL (150-450)
[2018-09-01 07:03] VITALS: BP 162/86
[2018-09-01] MEDS: DULoxetine HCL 30 MG CAPCR PO SCH (08:57)
[2018-09-01] MEDS: BACLOFEN 10 MG TAB PO SCH ×3 (08:57→21:10)
[2018-09-01] MEDS: ENOXAPARIN 40 MG/0.4ML SYR SC SCH (08:58)
[2018-09-01] MEDS: CLOPIDOGREL BISULFATE 75MG TAB PO SCH (08:58)
[2018-09-01] MEDS: METOPROLOL SUCC XL 50 MG TABCR 50 MG TAB.ER.24H PO SCH (08:58)
[2018-09-01] MEDS: GABAPENTIN 300 MG CAP PO SCH ×3 (08:58→21:10)
[2018-09-01] MEDS: APAP/HYDROCODONE 325/5 TAB PO PRN ×2 (08:59→21:10)
--- NOTE | 2018-09-01 11:54 | Hospitalist Progress Note ---
Subjective Progress Notes Subjective She reports much improvement in SOB. She wore BIPAP overnight, which gave her much comfort. Physical Exam Vital Signs Date Time Temp Pulse Resp B/P (MAP) Pulse Ox O2 Delivery O2 Flow Rate FiO2 09/01/18 11:22 73 18 09/01/18 11:16 93 Nasal Cannula 3.0 09/01/18 07:03 98.2 162/86 (111) 09/01/18 05:00 50.0 Intake and Output 09/01/18 07:02 Intake Total 250 ml Output Total 1800 ml Balance -1550 ml IV Total 250 ml Output Urine Total 1800 ml General Appearance: Alert, Awake, No Acute Distress Cardiovascular: Regular Rate and Rhythm Respiratory: Clear to Auscultation (but not moving air well to the bases) Extremities: No Edema Result Diagram: 09/01/1854409/01/18544 Assessment and Plan Problems: (1) COPD exacerbation Status: Acute Assessment & Plan: She presented with cough and worsening cough over a couple of days. No infiltrate or PE on CTA. She has had much improvement since admission. Still requiring 4 liters of O2 and normally on 3L. We will continue prn BiPAP, supplemental oxygen/respiratory treatments. (2) CAD (coronary artery disease) Status: Chronic Assessment & Plan: Continue metoprolol, Plavix. Serial troponins negative. Echo pending. (3) Anxiety and depression Status: Chronic Assessment & Plan: Continue quetiapine, duloxetine. (4) Benign hypertension Status: Chronic Assessment & Plan: Monitor BPs. Continue metoprolol. Modify therapy as needed. (5) Back pain Status: Chronic Assessment & Plan: Will continue her baclofen and Lortab. Exam Sepsis Risk: No Definite Risk ADRIÁN BAXTER MD Sep 01, 2018 11:54
[2018-09-01 11:58] VITALS: BP 188/89
--- NOTE | 2018-09-01 14:30 | NUR ---
Occupational Therapy Impression No report of pain. Independent bed mobility in/out. SBA ambulation x30ft with RW. Independent opening/closing door during mobility. Independent lower body dressing. Declined toileting at this time. SpO2 WNL on 3L throughout tx. When cleared medically, pt reports desire to discharge home with HH and assist from granddaughter. No further skilled OT needs at this time. Occupational Therapy Goals Patient's Goal
[2018-09-01] MEDS: TROLAMINE SALIC 10% CR 90GM TB TP SCH ×2 (14:57→21:11)
[2018-09-01] MEDS: NS(*) 0.9% 1000 ML BAG 1,000 ML IV PRN (15:15)
[2018-09-01 16:10] VITALS: BP 153/79
--- NOTE | 2018-09-01 16:53 | NUR ---
Physical Therapy Impression Pt with one occurence of loss of balance, but tolerating rest of session well. Pt performing bed mobility with SBA and HOB raised. Sit<>stand transfers performed with SBA and use of RW. Pt ambulated 50 ft with CGAx1, RW, and 3L of O2. Pt had one occurence of LOB. Pt grabbed on to railing to support self and support provided via gait belt. SpO2 checked and maintained at 88%. Pt appeared steady throughout rest of ambulation. Pt would benefit from further skilled PT care to ensure safe ambulation and adequate balance. Rec HH following discharge. Physical Therapy Goals 1. SBA bed mobility 2. SBA sit to stand transfers 3. SBA ambulation of 150 ft with use of least restrictive device. 4. SBA ability to ascend/descend 1 step to stimulate curb in environment Patient's Goals
--- NOTE | 2018-09-01 16:53 | NUR ---
This Physical Therapist or Senior Clinical Project Manager was present for the entire physical therapy session directing the services, making the skilled judgement, and was not engaged in treating another patient or doing another task at the same time as the treatment session. Addendum: 09/01/18 at 1653 by YADY OLSON PT Amended: Links added.
[2018-09-01 18:50] VITALS: BP 158/84
[2018-09-01] MEDS: QUEtiapine FUM 25 MG TAB PO SCH (21:10)
[2018-09-02 05:30] VITALS: BP 161/95
[2018-09-02] MEDS: methylPREDNIS SUCC 125 MG/2ML IVP SCH (05:31)
[2018-09-02] MEDS: LEVALBUTEROL 1.25 MG/3 ML NEB NEB SCH ×2 (05:35→11:48)
[2018-09-02 07:18] VITALS: BP 192/95
[2018-09-02] MEDS: APAP/HYDROCODONE 325/5 TAB PO PRN (08:01)
[2018-09-02] MEDS: CLOPIDOGREL BISULFATE 75MG TAB PO SCH (09:22)
[2018-09-02] MEDS: BACLOFEN 10 MG TAB PO SCH ×2 (09:22→13:36)
[2018-09-02] MEDS: METOPROLOL SUCC XL 50 MG TABCR 50 MG TAB.ER.24H PO SCH (09:22)
[2018-09-02] MEDS: TROLAMINE SALIC 10% CR 90GM TB TP SCH (09:22)
[2018-09-02] MEDS: GABAPENTIN 300 MG CAP PO SCH ×2 (09:23→13:37)
[2018-09-02] MEDS: DULoxetine HCL 30 MG CAPCR PO SCH (09:23)
[2018-09-02] MEDS: ENOXAPARIN 40 MG/0.4ML SYR SC SCH (09:23)
--- NOTE | 2018-09-02 11:14 | NUR ---
Physical Therapy Impression Patient presents in bed today and is agreeable to therapy and reports she is going home today. Patient was I with bed mobility. Patient instructed in gait training with FWW ~110 feet on 3L of oxygen and stayed above 93%. Patient needed CGA and had 1 LOB as she was static standing and let go of her walker to wipe her nose. Patient reports she feels good and is ready to be home. Patient is being d/c to home today. Physical Therapy Goals 1. SBA bed mobility 2. SBA sit to stand transfers 3. SBA ambulation of 150 ft with use of least restrictive device. 4. SBA ability to ascend/descend 1 step to stimulate curb in environment Patient's Goals
[2018-09-02 11:42] VITALS: BP 183/97
[2018-09-02] MEDS ORDERED: PRED20TA6 PO (11:46)
--- NOTE | 2018-09-02 11:51 | Hospitalist Depart ---
Discharge Summary Reason for Hosp/Final Diag: (1) COPD exacerbation Status: Acute Hospital Course & Plan: She presented with cough and worsening cough over a couple of days. No infiltrate or PE on CTA. Back to baseline 2-3L at discharge. Improved rapidly, she is being provided with a portable concentrator capable of delivering continuous flow instead of pulsed. Short course prednisone prescribed. (2) CAD (coronary artery disease) Status: Chronic Hospital Course & Plan: Continue metoprolol, Plavix. Serial troponin negative. Echo pending. (3) Anxiety and depression Status: Chronic Hospital Course & Plan: Continue quetiapine, duloxetine. (4) Benign hypertension Status: Chronic Hospital Course & Plan: Monitor BPs. Continue metoprolol. (5) Back pain Status: Chronic Hospital Course & Plan: Continue her baclofen and Lortab. Departure Weight (Pounds): 103 Weight (Ounces): 10.0 Result Diagram: 09/01/1854409/01/18544 Condition: Improved PT/OT Follow Up For: PT For Strengthening, OT For ADL's Discharge Instructions Home Meds Active Scripts Prednisone (PREDNISONE) 20 Mg Tablet, 40 MG PO QDAY for 5 Days, #10 TAB Prov:ALBERT CLEMENSMEREDITH 09/02/18 Hydrocodone Bit/Acetaminophen (HYDROCODON-ACETAMINOPHEN 5-325) 1 Each Tablet, 1- 2 EACH PO Q4H PRN for PAIN, #20 TAB Prov:CHAMP BOYER STRATEGIC PLANNING CONSULTANT 08/17/18 Duloxetine Hcl (CYMBALTA) 60 Mg Capsule.dr, 60 MG PO QDAY, #30 CAP 1 Refill Prov:TODD TRACEY MD 08/13/18 Metoprolol Succinate (METOPROLOL SUCCINATE) 50 Mg Tab.er.24h, 1 TAB PO QDAY, #90 TAB 1 Refill Prov:TODD TRACEY MD 06/22/18 Clopidogrel Bisulfate (PLAVIX) 75 Mg Tablet, 1 TAB PO QDAY, #30 TAB 5 Refills Prov:TODD TRACEY MD 06/01/18 Quetiapine Fumarate (SEROQUEL) 25 Mg Tablet, 25 MG PO HS, #30 TAB 4 Refills Prov:TODD TRACEY MD 05/19/18 Gabapentin (GABAPENTIN) 600 Mg Tablet, 600 MG PO TID, #90 CAP 4 Refills Prov:TODD TRACEY MD 02/08/18 Cyanocobalamin (Vitamin B-12) (B-12) 1,000 Mcg Tablet, 1 TAB PO QDAY for 30 Days, #90 TAB 3 Refills Prov:TODD TRACEY MD 11/30/17 Reported Medications Baclofen (BACLOFEN) 10 Mg Tablet, 10 MG PO TID, #30 TAB 02/08/18 Acetaminophen 500 Mg Tab (ACETAMINOPHEN EXTRA STRENGTH) 500 Mg Tablet, 500 MG PO BID PRN for pain, TAB 11/30/17 Diet: Regular Activity: As Tolerated Special Instructions: Continue prednisione as prescribed for 5 more days. Follow up with PCP within one week. Copies to: TODD TRACEY MD ; Venous Thromboembolism Antithrombotics Is Pt On Any Antithrombotics?: Yes MEREDITH GILLESPIE DO Sep 02, 2018 11:51
[2018-09-02] MEDS ORDERED: predniSONE 20 MG TAB PO SCH (12:00)
[2018-09-03] MEDS ORDERED: LISI20TA29 PO (12:48)
== END 2018-09-02 15:00 | disposition home health service (06) | DRG 191 ==
LOC: ER 12:07 → MED 14:57 → INTOOBSV 14:57 → OBSVTOIN 09-01
PROVIDERS: ADMIT Internal Medicine; ATTEND Internal Medicine
PROC: 5A09357 Assistance with Respiratory Ventilation, Less than 24 Consecutive Hours, Continuous Positive Airway Pressure (ICD-10-PCS; principal; 2018-09-01)
DX: J44.1 Chronic obstructive pulmonary disease with (acute) exacerbation (principal); E87.2 Acidosis; G81.94 Hemiplegia, unspecified affecting left nondominant side; I25.10 Atherosclerotic heart disease of native coronary artery without angina pectoris; I10 Essential (primary) hypertension; G89.29 Other chronic pain; F41.8 Other specified anxiety disorders; K21.9 Gastro-esophageal reflux disease without esophagitis; F17.210 Nicotine dependence, cigarettes, uncomplicated; E61.1 Iron deficiency; E04.1 Nontoxic single thyroid nodule; Z96.643 Presence of artificial hip joint, bilateral; Z88.8 Allergy status to other drugs, medicaments and biological substances; Z86.73 Personal history of transient ischemic attack (TIA), and cerebral infarction without residual deficits; Z98.1 Arthrodesis status; Z95.5 Presence of coronary angioplasty implant and graft
CPT/HCPCS: 36415; 36600; 70450; 71045; 71275; 81001; 82040; 82247; 82310; 82374; 82435; 82565; 82803; 82947; 83880; 84075; 84132; 84155; 84295; 84450; 84460; 84484; 84520; 84703; 85025; 85610; 85730; 93005; 93306; 94640; 94660; 96360; 96361; 97161; 97165; C1758; G0378; J1650; J2930; J7030; J7040; J7050; J7512; Q9967

== ENCOUNTER → 2018-08-31 | Outpatient (CLI) | payer MEDICARE ==
[2017-10-30 08:58] VITALS: BMI 22.4
[~2018-08-31] MED LIST changes: +LISI20TA29 PO; +PRED20TA6 PO
== END ==
LOC: AMB 11:35
PROVIDERS: ATTEND Nurse Practitioner
DX: R51 Headache (principal); R09.02 Hypoxemia; R29.810 Facial weakness; R06.00 Dyspnea, unspecified
CPT/HCPCS: A0425; A0427

== ENCOUNTER 2018-09-27 16:49 | Emergency (ER) | payer MEDICARE ==
[2017-10-30 08:58] VITALS: Wt 44.5 kg
[~2018-09-27 16:49] MED LIST changes: +LISI20TA29 PO; +PRED20TA6 PO
[2018-09-27] MEDS ORDERED: ALBUTEROL/IPRATROPIUM 3 ML NEB ONE (16:58)
--- NOTE | 2018-09-27 17:01 | ER Report ---
History and Physical Time Seen By MD: 16:57 HPI/ROS CHIEF COMPLAINT: Hypertension, headache, shortness of breath HISTORY OF PRESENT ILLNESS: 68-year-old female patient presents to emergency room with complaint of hypertension, headache and shortness of breath. Patient states the shortness of breath has been going on for the past several days and getting worse. She denies any fevers. She states she's not had a productive cough. Patient states that her blood pressures been really high and her home health nurse was concerned about that and wanted to be evaluated. Patient states she's also had a headache for the past 6 days. She states that she typically takes Tylenol for this which seems to help. She denies any nausea, vomiting or diarrhea. She states that she's not had any blood in her urine. She denies any weakness. REVIEW OF SYSTEMS: Respiratory: As noted above Cardiovascular: No chest pain, no palpitations. Gastrointestinal: No vomiting, no abdominal pain. Musculoskeletal: No back pain. Allergies: Coded Allergies: aspirin (Verified Adverse Reaction, Mild, NAUSEA/VOMITING, 09/27/18) Home Meds Active Scripts Clonidine Hcl (CLONIDINE HCL) 0.1 Mg Tablet, 0.1 MG PO BID PRN for HYPERTENSION, #15 TAB Take 1 tab as needed for blood pressure greater than 155/95 Prov:JIM PAYAN [facility] 09/27/18 Azithromycin 250 Mg Tab (AZITHROMYCIN 250 MG TAB) 250 Mg Tablet, 1 TAB PO QDAY, #6 TAB Take 2 tabs today and then 1 tab a day until gone. Prov:JIM PAYAN [facility] 09/27/18 Prednisone (PREDNISONE) 20 Mg Tablet, 40 MG PO DAILY, #8 TAB Prov:JIM PAYAN [facility] 09/27/18 Prednisone (PREDNISONE) 20 Mg Tablet, 40 MG PO QDAY for 5 Days, #10 TAB Prov:MEREDITH GILLESPIE DO 09/02/18 Hydrocodone Bit/Acetaminophen (HYDROCODON-ACETAMINOPHEN 5-325) 1 Each Tablet, 1- 2 EACH PO Q4H PRN for PAIN, #20 TAB Prov:CHAMP BOYER [facility] 08/17/18 Duloxetine Hcl (CYMBALTA) 60 Mg Capsule.dr, 60 MG PO QDAY, #30 CAP 1 Refill Prov:TODD TRACEY MD 08/13/18 Metoprolol Succinate (METOPROLOL SUCCINATE) 50 Mg Tab.er.24h, 1 TAB PO QDAY, #90 TAB 1 Refill Prov:TODD TRACEY MD 06/22/18 Clopidogrel Bisulfate (PLAVIX) 75 Mg Tablet, 1 TAB PO QDAY, #30 TAB 5 Refills Prov:TODD TRACEY MD 06/01/18 Quetiapine Fumarate (SEROQUEL) 25 Mg Tablet, 25 MG PO HS, #30 TAB 4 Refills Prov:TODD TRACEY MD 05/19/18 Gabapentin (GABAPENTIN) 600 Mg Tablet, 600 MG PO TID, #90 CAP 4 Refills Prov:TODD TRACEY MD 02/08/18 Cyanocobalamin (Vitamin B-12) (B-12) 1,000 Mcg Tablet, 1 TAB PO QDAY for 30 Days, #90 TAB 3 Refills Prov:TODD TRACEY MD 11/30/17 Reported Medications Lisinopril (LISINOPRIL) 20 Mg Tablet, 1 TAB PO QDAY, TAB 09/03/18 Baclofen (BACLOFEN) 10 Mg Tablet, 10 MG PO TID, #30 TAB 02/08/18 Acetaminophen 500 Mg Tab (ACETAMINOPHEN EXTRA STRENGTH) 500 Mg Tablet, 500 MG PO BID PRN for pain, TAB 11/30/17 Past Medical/Surgical History Patient has a past medical history of CVA, hypertension, pneumonia, COPD, frequent UTI, arthritis, left hip fracture 2, back pain, hypothyroidism, depression. Patient has a surgical history of left hip surgery, back surgery. Patient has a family medical history of diabetes, CAD, cancer. Reviewed Nurses Notes: Yes Hx Smoking: Yes (2 cigs a day) Smoking Status: Smoker: Status Unknown Hx Substance Use Disorder: No Hx Alcohol Use: No Constitutional Vital Sign - Last 24 Hours 09/27/18 09/27/18 09/27/18 09/27/18 16:50 16:50 17:00 17:00 Temp 98.4 Pulse 71 75 Resp 22 22 B/P (MAP) 172/99 Pulse Ox 100 95 O2 Delivery Nasal Cannula Nasal Cannula O2 Flow Rate 2.0 3.0 09/27/18 09/27/18 09/27/18 09/27/18 17:00 17:09 17:15 17:30 Pulse 71 78 71 68 Resp 28 22 29 24 B/P (MAP) 189/110 (136) 179/112 (134) Pulse Ox 100 88 94 09/27/18 09/27/18 09/27/18 09/27/18 17:45 18:00 18:15 18:30 Pulse 68 68 67 67 Resp 26 23 24 25 B/P (MAP) 186/95 (125) 178/118 (138) Pulse Ox 93 94 93 94 09/27/18 09/27/18 09/27/18 09/27/18 18:45 19:00 19:15 19:20 Pulse 70 74 74 ??? Resp 24 32 42 B/P (MAP) 180/118 (138) Pulse Ox 93 94 95 09/27/18 09/27/18 09/27/18 09/27/18 19:30 19:35 19:50 19:57 Pulse 76 80 Resp 52 25 B/P (MAP) 108/64 (79) 125/75 (92) Pulse Ox 89 90 09/27/18 09/27/18 09/27/18 09/27/18 20:00 20:05 20:20 20:35 Pulse 76 ? Resp 33 B/P (MAP) 134/93 (107) Pulse Ox 91 Physical Exam General Appearance: The patient is alert, has no immediate need for airway protection and no current signs of toxicity. Respiratory: Chest is non tender, lungs are diminished with wheezes to auscultation. Cardiac: regular rate and rhythm Gastrointestinal: Abdomen is soft and non tender, no masses, bowel sounds nor mal. Musculoskeletal: Neck: Neck is supple and non tender. Extremities have full range of motion and are non tender. Skin: No rashes or lesions. DIFFERENTIAL DIAGNOSIS: After history and physical exam differential diagnosis was considered for COPD exacerbation, and cranial hemorrhage, hypertensive urgency, hypertensive emergency Medical Decision Making Data Points Result Diagram: 09/27/18 1723 09/27/18 1723 Laboratory Hematology Test 09/27/18 17:23 White Blood Count 9.4 k/uL (4.5-11.0) Red Blood Count 4.08 M/uL (4.17-5.56) L Hemoglobin 10.7 g/dL (12.0-16.0) L Hematocrit 32.9 % (34.0-47.0) L Mean Corpuscular Volume 80.8 fL (80.0-96.0) Mean Corpuscular Hemoglobin 26.3 pg (26.0-33.0) Mean Corpuscular Hemoglobin Concent 32.6 g/dL (32.0-36.0) Red Cell Distribution Width 16.5 % (11.5-14.5) H Platelet Count 336 K/uL (150-450) Mean Platelet Volume 7.4 fL (7.2-11.1) Neutrophils (%) (Auto) 54.8 % (39.4-72.5) Lymphocytes (%) (Auto) 32.3 % (17.6-49.6) Monocytes (%) (Auto) 6.3 % (4.1-12.4) Eosinophils (%) (Auto) 6.0 % (0.4-6.7) Basophils (%) (Auto) 0.6 % (0.3-1.4) Nucleated RBC Relative Count (auto) 0.0 /100WBC Neutrophils # (Auto) 5.2 K/uL (2.0-7.4) Lymphocytes # (Auto) 3.0 K/uL (1.3-3.6) Monocytes # (Auto) 0.6 K/uL (0.3-1.0) Eosinophils # (Auto) 0.6 K/uL (0.0-0.5) H Basophils # (Auto) 0.1 K/uL (0.0-0.1) Nucleated RBC Absolute Count (auto) 0.00 K/uL Chemistry Test 09/27/18 17:23 Sodium Level 139 mmol/L (137-145) Potassium Level 3.7 mmol/L (3.5-5.0) Chloride Level 98 mmol/L (98-107) Carbon Dioxide Level 33 mmol/L (22-31) Blood Urea Nitrogen 12 mg/dl (7-18) Creatinine 0.60 mg/dl (0.52-1.04) Glomerular Filtration Rate Calc > 60.0 Random Glucose 109 mg/dl (75-110) Calcium Level 9.4 mg/dl (8.4-10.2) Total Bilirubin 0.2 mg/dl (0.2-1.3) Aspartate Amino Transf (AST/SGOT) 25 U/L (0-35) Alanine Aminotransferase (ALT/SGPT) 23 U/L (0-56) Alkaline Phosphatase 47 U/L (0-126) Troponin I < 0.012 ng/ml B-Type Natriuretic Peptide 67 pg/ml (0-100) Total Protein 7.6 g/dl (6.3-8.2) Albumin 3.9 g/dl (3.5-5.0) Coagulation Test 09/27/18 17:23 D-Dimer Quantitative (PE/DVT) 0.88 ug/ml (0-0.50) Urinalysis Test 09/27/18 00:00 Urine Color Yellow Urine Clarity Clear Urine pH 7.0 pH (4.8-9.5) Urine Specific Hersey >1.060 Urine Protein Negative mg/dL (NEGATIVE) Urine Glucose (UA) Negative mg/dL (NEGATIVE) Urine Ketones Trace mg/dL (NEGATIVE) Urine Blood Negative (NEGATIVE) Urine Nitrite Negative (NEGATIVE) Urine Bilirubin Negative (NEGATIVE) Urine Urobilinogen Negative mg/dL (0.2-1.9) Urine Leukocyte Esterase Negative (NEGATIVE) Urine RBC <1 /HPF (0-2/HPF) Urine WBC 1 /HPF (0-5/HPF) Urine Squamous Epithelial Cells Many /LPF (</=FEW) Urine Bacteria Negative /HPF (NONE-FEW) Urine Mucus None /HPF (NONE-FEW) EKG/Imaging Imaging CT CTA CHEST W & W/O CON COMPARISONS: CTA of the chest dated August 31, 2018 ADDITIONAL PERTINENT HISTORY: History of hypertension TECHNIQUE: Multiple axial images are obtained from the lung apices through the upper abdomen during the IV administration of contrast material. 2-D and 3-D reformatted images were obtained off the axial source data. One of the following dose optimization techniques was utilized in the performance of this exam: Automated exposure control; adjustment of the mA and/or kV according to the patient's size; or use of an iterative reconstruction technique. Specific details can be referenced in the facility's radiology CT exam operational policy. CONTRAST: 75mL of Isovue-370 FINDINGS: Lung parenchyma: Bibasilar regions of scarring. Pleural spaces: Negative. Heart, mediastinum and cehmo: Negative. Previously described anterior pericardial thickening has improved. Cardiopulmonary vasculature: Continued atherosclerotic disease of the thoracic aorta and the origins of the great vessels. Pulmonary arterial structures are well opacified with contrast material and demonstrate no evidence of underlying pulmonary emboli. Central airways: Negative Thyroid, supra- clavicular, axillary regions: Negative. Surrounding soft tissues: Negative. Upper abdominal structures: Atherosclerotic disease of the abdominal aorta. Continued low-attenuation lesion involving the upper pole of the left kidney consistent with a simple cyst. Osseous structures: Spondylitic change involving the thoracic spine. No acute appearing bony abnormalities. IMPRESSION: 1. No evidence of underlying pulmonary emboli. 2. No other acute intrathoracic process. Report Dictated By: Brian Mijares MD at 09/27/2018 7:01 PM Report E-Signed By: Brian Mijares MD at 09/27/2018 7:[address] scan without contrast COMPARISONS: August 31, 2018 ADDITIONAL PERTINENT HISTORY: History of hypertension and headache TECHNIQUE: Multiple axial images were obtained from the skull base to the vertex without IV contrast. One of the following dose optimization techniques was utilized in the performance of this exam: Automated exposure control; adjustment of the mA and/or kV according to the patient's size; or use of an iterative reconstruction technique. Specific details can be referenced in the facility's radiology CT exam operational policy. FINDINGS: Midline shift: Negative Ventricles: Negative Brain parenchyma: Patchy hypoattenuation within the periventricular and subcortical white matter, nonspecific but likely representing small vessel ischemic change on a chronic basis. No intraparenchymal hemorrhage. Extra-axial spaces: Moderate cerebral atrophy. Intracranial vasculature: Cavernous internal carotid artery calcifications. Otherwise negative Osseous structures: Negative Paranasal sinuses and mastoid air cells: Negative Surrounding soft tissues and orbits: Negative IMPRESSION: 1. Age related changes as described above. 2. No evidence of acute intracranial pathology. Report Dictated By: Brian Mijares MD at 09/27/2018 6:55 PM Report E-Signed By: Brian Mijares MD at 09/27/2018 6:58 PM ED Course/Re-evaluation ED Course Patient was admitted and examined, history of physical or obtained. Differential diagnoses were considered. On examination lungs are diminished, heart was regular, abdomen soft nontender. Patient received a breathing treatment and had improvement in her lung sounds. EKG was done which showed no acute findings. A CBC, CMP were done which also were negative. A CT scan of the head was done, a CT pulmonary angiogram was done secondary to an elevated d-dimer. Troponin was negative. After lab results patient still had elevated pressure. Patient was given 20 of labetalol. Her blood pressure came down to 108/64. Patient states she felt fine at this time. She denies feeling lightheaded or weak. We will go ahead and discharge her home at this time. Patient will be given clonidine that she can take as needed. She is return to emergency room if condition worsens. She does have an appointment with her primary care provider on . I would like her to follow-up with him at that time. I do have concerns she has a COPD exacerbation in addition to her hypertension. Patient will be treated with Solu- Medrol, which made her feel better here as well as prednisone at home. We will also treat her with azithromycin to cover any opportunistic infection. Patient verbalized understanding and agreement with plan. Decision to Disposition Date: Sep 27, 2018 Decision to Disposition Time: 20:12 Depart Departure Latest Vital Signs Vital Signs Date Time Temp Pulse Resp B/P (MAP) Pulse Ox O2 Delivery O2 Flow Rate FiO2 09/27/18 20:35 ??? 09/27/18 20:05 33 91 09/27/18 20:00 134/93 (107) 09/27/18 17:00 Nasal Cannula 3.0 09/27/18 16:50 98.4 Impression: Primary Impression: COPD exacerbation Additional Impression: Hypertension Condition: Improved Disposition: HOME OR SELF-CARE Referrals: TODD TRACEY MD (PCP) New Scripts Clonidine Hcl (CLONIDINE HCL) 0.1 Mg Tablet 0.1 MG PO BID PRN for HYPERTENSION, #15 TAB Take 1 tab as needed for blood pressure greater than 155/95 Prov: JIM PAYAN 09/27/18 Azithromycin 250 Mg Tab (AZITHROMYCIN 250 MG TAB) 250 Mg Tablet 1 TAB PO QDAY, #6 TAB Take 2 tabs today and then 1 tab a day until gone. Prov: JIM PAYAN [employer] 09/27/18 Prednisone (PREDNISONE) 20 Mg Tablet 40 MG PO DAILY, #8 TAB Prov: JIM PAYAN 09/27/18 Patient Instructions: Hypertension (ED) Additional Instructions: Get plenty of rest. Increase fluid intake. Follow up with your Primary care provider in the next week. Take the medication as directed. Return to the ER if condition worsens. Problem Qualifiers Additional Impression: Hypertension Hypertension type: essential hypertension Qualified Codes: I10 - Essential (primary) hypertension JIM PAYAN [facility] Sep 27, 2018 17:01
[2018-09-27] MEDS ORDERED: ALBUTEROL/IPRATROPIUM 3 ML NEB NEB ONE (17:05)
[2018-09-27] MEDS ORDERED: methylPREDNIS SUCC 125 MG/2ML IVP ONE (17:15)
--- NOTE | 2018-09-27 17:17 | EKG ---
FACILITY: [facility] PATIENT NAME: LUCA WYATT : [id number] MR: [id number] V: [id number] EXAM DATE: ORDERING PHYSICIAN: JIM PAYAN TECHNOLOGIST: ARUN Pickering Reason : SOB Blood Pressure : / mmHG Vent. Rate : 070 BPM Atrial Rate : 070 BPM P-R Int : 142 ms QRS Dur : 066 ms QT Int : 414 ms P-R-T Axes : 076 054 056 degrees QTc Int : 447 ms Normal sinus rhythm Normal ECG When compared with ECG of 31-AUG-2018 12:04, Previous ECG has undetermined rhythm, needs review Confirmed by Catarino Antonio ([id number]) on 09/28/2018 12:38:59 AM Referred By: BIENVENIDO Confirmed By:Catarino Benson
[2018-09-27 17:38] LABS: PLATELET COUNT, AUTOMATED 336 K/uL (150-450)
[2018-09-27] MEDS ORDERED: IOPAMIDOL 76% 100 ML INFUS BTL 100 ML ONE (18:31)
[2018-09-27] MEDS ORDERED: NS(*) 0.9% 50 ML BAG 50 ML ONE (18:31)
--- NOTE | 2018-09-27 19:06 | RADIOLOGY IMAGING REPORT ---
FACILITY: [facility] PATIENT NAME: Nanci Paul : 1950 MR: [id number] V: [id number] EXAM DATE: ORDERING PHYSICIAN: JIM PAYAN TECHNOLOGIST: Location: [facility] Patient: Nanci Paul : 1950 Visit/Account:[id number] Date of Sevice: 09/27/[address] scan without contrast COMPARISONS: August 31, 2018 ADDITIONAL PERTINENT HISTORY: History of hypertension and headache TECHNIQUE: Multiple axial images were obtained from the skull base to the vertex without IV contrast . One of the following dose optimization techniques was utilized in the performance of this exam: Aut omated exposure control; adjustment of the mA and/or kV according to the patient's size; or use of an iterative reconstruction technique. Specific details can be referenced in the facility's radiology CT exam operational policy. FINDINGS: Midline shift: Negative Ventricles: Negative Brain parenchyma: Patchy hypoattenuation within the periventricular and subcortical white matter, no nspecific but likely representing small vessel ischemic change on a chronic basis. No intraparenchym al hemorrhage. Extra-axial spaces: Moderate cerebral atrophy. Intracranial vasculature: Cavernous internal carotid artery calcifications. Otherwise negative Osseous structures: Negative Paranasal sinuses and mastoid air cells: Negative Surrounding soft tissues and orbits: Negative IMPRESSION: 1. Age related changes as described above. 2. No evidence of acute intracranial pathology. Report Dictated By: Brian Mijares MD at 09/27/2018 6:55 PM Report E-Signed By: Brian Mijares MD at 09/27/2018 6:58 PM WSN:[facility]
--- NOTE | 2018-09-27 19:12 | RADIOLOGY IMAGING REPORT ---
FACILITY: [facility] [place] [place] PATIENT NAME: Nanci Paul : 1950 MR: [id number] V: [id number] EXAM DATE: ORDERING PHYSICIAN: JIM PAYAN TECHNOLOGIST: Location: [facility] [place] Patient: Nanci Paul : 1950 Visit/Account:[id number] Date of Sevice: 09/27/2018 CT CTA CHEST W & W/O CON COMPARISONS: CTA of the chest dated August 31, 2018 ADDITIONAL PERTINENT HISTORY: History of hypertension TECHNIQUE: Multiple axial images are obtained from the lung apices through the upper abdomen during t he IV administration of contrast material. 2-D and 3-D reformatted images were obtained off the axial source data. One of the following dose optimization techniques was utilized in the performance of t his exam: Automated exposure control; adjustment of the mA and/or kV according to the patient's size; or use of an iterative reconstruction technique. Specific details can be referenced in the [facility]'s radiology CT exam operational policy. CONTRAST: 75mL of Isovue-370 FINDINGS: Lung parenchyma: Bibasilar regions of scarring. Pleural spaces: Negative. Heart, mediastinum and chemo: Negative. Previously described anterior pericardial thickening has impr mike. Cardiopulmonary vasculature: Continued atherosclerotic disease of the thoracic aorta and the origins of the great vessels. Pulmonary arterial structures are well opacified with contrast material and de monstrate no evidence of underlying pulmonary emboli. Central airways: Negative Thyroid, supra- clavicular, axillary regions: Negative. Surrounding soft tissues: Negative. Upper abdominal structures: Atherosclerotic disease of the abdominal aorta. Continued low-attenuatio n lesion involving the upper pole of the left kidney consistent with a simple cyst. Osseous structures: Spondylitic change involving the thoracic spine. No acute appearing bony abnorma lities. IMPRESSION: 1. No evidence of underlying pulmonary emboli. 2. No other acute intrathoracic process. Report Dictated By: Brian Mijares MD at 09/27/2018 7:01 PM Report E-Signed By: Brian Mijares MD at 09/27/2018 7:06 PM WSN:[facility]
[2018-09-27] MEDS ORDERED: LABETALOL HCL 25 MG/5 ML SYRINGE IVP ONE (19:15)
[2018-09-27] MEDS ORDERED: LABETALOL HCL 100 MG/20ML VIAL IVP ONE (19:20)
[2018-09-27 20:00] VITALS: BP 134/93
[2018-09-27] MEDS ORDERED: AZIT-18 PO (20:13)
[2018-09-27] MEDS ORDERED: CLON-327 PO (20:13)
[2018-09-27] MEDS ORDERED: PRED20TA6 PO (20:13)
[2018-09-27] MEDS ORDERED: predniSONE 20 MG TAB PO ONE (20:20)
== END 2018-09-27 20:30 | disposition home or self-care (01) ==
LOC: ER 17:04
DX: J44.1 Chronic obstructive pulmonary disease with (acute) exacerbation (principal); I10 Essential (primary) hypertension
CPT/HCPCS: 81001; 83880; 84484; 85025; 85379; 93005; 94640; 96374; 96375; 99284; J2930; J7050; J7512; J7620; Q9967; 70450; 71275; 82040; 82247; 82310; 82374; 82435; 82565; 82947; 84075; 84132; 84155; 84295; 84450; 84460; 84520